=== PATIENT | female | born 1935 | race Caucasian/White ===

== ENCOUNTER 2016-09-24 13:26 | Inpatient (IN) | payer MEDICARE ==
--- NOTE | 2016-09-24 14:13 | ED ---
General Adult HPI - General Chief complaint: Chest Pain Stated complaint: R flank pain Time Seen by Provider: 09/24/16 13:27 Source: patient, EMS, RN notes reviewed, old records reviewed Mode of arrival: EMS Limitations: no limitations - History of Present Illness Initial comments: This is an 81-year-old female here with source of breath chest pain and cough. Patient does have medical history significant for COPD. On home O2. Patient denies any fevers. Complaining of anterior chest pain with right-sided flank pain. No nausea vomiting or diarrhea. Not worse with eating - Related Data Home Medications Medication Instructions Recorded Confirmed Aspirin EC [Ecotrin Low Dose] 81 mg PO DAILY 10/15/15 09/24/16 Atorvastatin [Lipitor] 10 mg PO HS 10/15/15 09/24/16 Fluticasone/Salmeterol [Advair 1 puff INHALATION RT-BID 10/15/15 09/24/16 500-50 Diskus] Letrozole [Femara] 2.5 mg PO DAILY 10/15/15 09/24/16 Levothyroxine Sodium [Levoxyl] 112 mcg PO DAILY 10/15/15 09/24/16 Meclizine HCl 25 mg PO DAILY PRN 10/15/15 09/24/16 Promethazine HCl/Codeine 5 ml PO DAILY PRN 10/15/15 09/24/16 [Prometh-Codein 6.25-10 mg/5 ml] hydrOXYzine HCL [Atarax] 10 mg PO BID 10/15/15 09/24/16 predniSONE 5 mg PO DAILY 10/15/15 09/24/16 Cholecalciferol [Vitamin D3] 2,000 unit PO DAILY 09/24/16 09/24/16 HYDROcodone/APAP 7.5-325MG [[place] 1 tab PO QID PRN 09/24/16 09/24/16 7.5-325] Ipratropium-Albuterol Nebulize 3 ml INHALATION RT-QID PRN 09/24/16 09/24/16 [Duoneb 0.5 mg-3 mg/3 ml Soln] Vitamin C/Biotin [Hair, Skin and 1 tab PO DAILY 09/24/16 09/24/16 Nails] Previous Rx's Medication Instructions Recorded Warfarin Sodium [Coumadin] 5 mg PO DAILY #1 tab 10/20/15 Allergies Allergy/AdvReac Type Severity Reaction Status Date / Time Sulfa (Sulfonamide Allergy Unknown Verified 09/24/16 13:34 Antibiotics) Review of Systems ROS Statement: Those systems with pertinent positive or pertinent negative responses have been documented in the HPI. ROS Other: All systems not noted in ROS Statement are negative. Past Medical History Past Medical History: Asthma, Cancer, COPD, Deep Vein Thrombosis (DVT), Hyperlipidemia, Osteoarthritis (OA), Pulmonary Embolus (PE), Thyroid Disorder Additional Past Medical History / Comment(s): 02 at 2L at night and prn during the day. BREAST CANCER, varicose veins, lymphedema (rt arm worse than left), "red blotches on skiin from blood thinners", hx radiation tx -thyroid, has had chemo and radiation doubel Mastectomy no B/P needle sticks on right History of Any Multi-Drug Resistant Organisms: None Reported Past Surgical History: Appendectomy, Back Surgery, Bladder Surgery, Breast Surgery, Hysterectomy, Joint Replacement, Tonsillectomy Additional Past Surgical History / Comment(s): GERDA CATARACTS. [place]IZ[place]NA FILTER. RIGHT KNEE REPLACEMENT. VEIN STRIPPING. PORT-O-CATH. mult surgeries on rt knee. arthroscopic rt knee, wedge resection rt lung, D&C, gerda mastectomy; benign lesions removed 10/13/15 [facility]; Past Anesthesia/Blood Transfusion Reactions: No Reported Reaction Additional Past Anesthesia/Blood Transfusion Reaction / Comment(s): PT ADOPTED, NO FAMILY HISTORY. Past Psychological History: Anxiety Smoking Status: Former smoker Past Alcohol Use History: None Reported Past Drug Use History: None Reported General Exam Limitations: no limitations General appearance: alert, in no apparent distress Head exam: Present: atraumatic, normocephalic, normal inspection Eye exam: Present: normal appearance, PERRL, EOMI. Absent: scleral icterus, conjunctival injection, periorbital swelling ENT exam: Present: normal exam, mucous membranes moist Neck exam: Present: normal inspection. Absent: tenderness, meningismus, lymphadenopathy Respiratory exam: Present: normal lung sounds bilaterally. Absent: respiratory distress, wheezes, rales, rhonchi, stridor Cardiovascular Exam: Present: regular rate, normal rhythm, normal heart sounds. Absent: systolic murmur, diastolic murmur, rubs, gallop, clicks GI/Abdominal exam: Present: soft, normal bowel sounds. Absent: distended, tenderness, guarding, rebound, rigid Extremities exam: Present: normal inspection, full ROM, normal capillary refill. Absent: tenderness, pedal edema, joint swelling, calf tenderness Back exam: Present: normal inspection Neurological exam: Present: alert, oriented X3, CN II-XII intact Psychiatric exam: Present: normal affect, normal mood Skin exam: Present: warm, dry, intact, normal color. Absent: rash Course Vital Signs 09/24/16 13:35 Temperature 97 F L Pulse Rate 74 Respiratory 16 Rate Blood Pressure 170/74 O2 Sat by Pulse 95 Oximetry - Reevaluation(s) Reevaluation #1: 09/24/16 15:24 Patient's pain appears to be improved Medical Decision Making - Medical Decision Making 81 venially ER for evaluation of chest pain and flank pain. Patient found to have pneumonia on x-ray, patient will be admitted for IV antibiotics and breathing treatments, moderate of cardiopulmonary status - Lab Data Result diagrams: 09/24/16 14:00 09/24/16 14:00 Lab Results 09/24/16 09/24/16 09/24/16 Range/Units 14:00 14:00 14:00 WBC 8.0 (3.8-10.6) k/uL RBC 4.88 (3.80-5.40) m/uL Hgb 14.8 (11.4-16.0) gm/dL Hct 47.7 H (34.0-46.0) % MCV 97.7 (80.0-100.0) fL MCH 30.3 (25.0-35.0) pg MCHC 31.0 (31.0-37.0) g/dL RDW 15.0 (11.5-15.5) % Plt Count 235 (150-450) k/uL Neutrophils % 71 % Lymphocytes % 17 % Monocytes % 6 % Eosinophils % 3 % Basophils % 1 % Neutrophils # 5.7 (1.3-7.7) k/uL Lymphocytes # 1.4 (1.0-4.8) k/uL Monocytes # 0.5 (0-1.0) k/uL Eosinophils # 0.3 (0-0.7) k/uL Basophils # 0.1 (0-0.2) k/uL PT (9.0-12.0) sec INR (<1.1) APTT (22.0-30.0) sec Sodium 142 (137-145) mmol/L Potassium 5.4 H (3.5-5.1) mmol/L Chloride 103 (98-107) mmol/L Carbon Dioxide 26 (22-30) mmol/L Anion Gap 13 mmol/L BUN 21 H (7-17) mg/dL Creatinine 0.79 (0.52-1.04) mg/dL Est GFR (MDRD) Af Amer >60 (>60 ml/min/1.73 sqM) Est GFR (MDRD) Non-Af >60 (>60 ml/min/1.73 sqM) Glucose 107 H (74-99) mg/dL Calcium 9.9 (8.4-10.2) mg/dL Phosphorus 3.9 (2.5-4.5) mg/dL Magnesium 2.0 (1.6-2.3) mg/dL Total Bilirubin 1.0 (0.2-1.3) mg/dL AST 95 H (14-36) U/L ALT 85 H (9-52) U/L Alkaline Phosphatase 107 (38-126) U/L Total Creatine Kinase 38 (30-135) U/L CK-MB (CK-2) 0.7 (0.0-2.4) ng/mL CK-MB (CK-2) Rel Index 1.8 Troponin I <0.012 (0.000-0.034) ng/mL Total Protein 7.3 (6.3-8.2) g/dL Albumin 4.3 (3.5-5.0) g/dL 09/24/16 Range/Units 14:00 WBC (3.8-10.6) k/uL RBC (3.80-5.40) m/uL Hgb (11.4-16.0) gm/dL Hct (34.0-46.0) % MCV (80.0-100.0) fL MCH (25.0-35.0) pg MCHC (31.0-37.0) g/dL RDW (11.5-15.5) % Plt Count (150-450) k/uL Neutrophils % % Lymphocytes % % Monocytes % % Eosinophils % % Basophils % % Neutrophils # (1.3-7.7) k/uL Lymphocytes # (1.0-4.8) k/uL Monocytes # (0-1.0) k/uL Eosinophils # (0-0.7) k/uL Basophils # (0-0.2) k/uL PT 29.9 H (9.0-12.0) sec INR 3.1 (<1.1) APTT 29.1 (22.0-30.0) sec Sodium (137-145) mmol/L Potassium (3.5-5.1) mmol/L Chloride (98-107) mmol/L Carbon Dioxide (22-30) mmol/L Anion Gap mmol/L BUN (7-17) mg/dL Creatinine (0.52-1.04) mg/dL Est GFR (MDRD) Af Amer (>60 ml/min/1.73 sqM) Est GFR (MDRD) Non-Af (>60 ml/min/1.73 sqM) Glucose (74-99) mg/dL Calcium (8.4-10.2) mg/dL Phosphorus (2.5-4.5) mg/dL Magnesium (1.6-2.3) mg/dL Total Bilirubin (0.2-1.3) mg/dL AST (14-36) U/L ALT (9-52) U/L Alkaline Phosphatase (38-126) U/L Total Creatine Kinase (30-135) U/L CK-MB (CK-2) (0.0-2.4) ng/mL CK-MB (CK-2) Rel Index Troponin I (0.000-0.034) ng/mL Total Protein (6.3-8.2) g/dL Albumin (3.5-5.0) g/dL - Radiology Data Radiology results: report reviewed (Ultrasound gallbladder negative, x-ray chest positive for pneumonia), image reviewed Disposition Clinical Impression: Breast cancer, Pneumonia Disposition: ADMITTED IP TO THIS HOSP Condition: Fair Referrals: Shabbir Goss MD [Primary Care Provider] - 1-2 days
--- NOTE | 2016-09-24 14:27 | XR ---
EXAMINATION TYPE: XR chest 2V DATE OF EXAM: 09/24/2016 2:19 PM COMPARISON: 10/15/2015 INDICATION: Weakness TECHNIQUE: Frontal and lateral views of the chest are obtained. FINDINGS: The heart size is normal. Heart is shifted towards the right. Some tracheal deviation towards the ri ght is evident. The pulmonary vasculature is normal. Mild right lower lobe infiltrate may be present.. IMPRESSION: 1. Suggestion of mild right lower lobe infiltrate.
[2016-09-24 14:33] LABS: Basophils # (A) 0.1 k/uL (0-0.2); Basophils % (A) 1 %; CH 30.9; CHCM 31.8; Eosinophils # (A) 0.3 k/uL (0-0.7); Eosinophils % (A) 3 %; HCT 47.7 % (34.0-46.0); HDW 2.44; HGB 14.8 gm/dL (11.4-16.0); Luc # (Auto) 0.14; Luc % (Auto) 2; Lymphocytes # (A) 1.4 k/uL (1.0-4.8); Lymphocytes % (A) 17 %; MCH 30.3 pg (25.0-35.0); MCV 97.7 fL (80.0-100.0); Mean Platelet Volume 7.9; Monocytes # (A) 0.5 k/uL (0-1.0); Monocytes % (A) 6 %; Neutrophils # (A) 5.7 k/uL (1.3-7.7); Neutrophils % (A) 71 %; RBC 4.88 m/uL (3.80-5.40); WBC (Perox) 8.13
[2016-09-24 14:48] LABS: Anion Gap 13 mmol/L; Calcium 9.9 mg/dL (8.4-10.2); Carbon Dioxide 26 mmol/L (22-30); Chloride 103 mmol/L (98-107); Glucose 107 mg/dL (74-99); Non-African American GFR(MDRD) >60 (>60 ml/min/1.73 sqM); Sodium 142 mmol/L (137-145)
[2016-09-24 14:53] LABS: Creatine Kinase 38 U/L (30-135)
[2016-09-24 14:58] LABS: Potassium 5.4 mmol/L (3.5-5.1); Total Protein 7.3 g/dL (6.3-8.2)
[2016-09-24 14:59] LABS: AST 95 U/L (14-36); Alkaline Phosphatase 107 U/L (38-126); Blood Urea Nitrogen 21 mg/dL (7-17); Phosphorous 3.9 mg/dL (2.5-4.5)
[2016-09-24 15:00] LABS: ALT 85 U/L (9-52)
[2016-09-24 15:04] LABS: Creatine Kinase MB 0.7 ng/mL (0.0-2.4); Troponin I <0.012 ng/mL (0.000-0.034)
--- NOTE | 2016-09-24 15:04 | US ---
EXAMINATION TYPE: US gallbladder DATE OF EXAM: 09/24/2016 2:45 PM COMPARISON: CT chest 04 June 2016 CLINICAL HISTORY: Pain. RUQ pain, nausea EXAM MEASUREMENTS: Liver Length: 20.4 cm Gallbladder Wall: 0.3 cm CBD: 0.6 cm Right Kidney: 10.4 x 4.0 x 4.3 cm Pancreas: not well visualized Liver: riddled with small lesions throughout both lobes Gallbladder: No stones seen Evidence for sonographic Dawn's sign: No CBD: wnl Right Kidney: No hydronephrosis or masses seen, thinned cortex Technologist impression patient did not tolerate well any pressure from the probe anywhere on the abdomen. IMPRESSION: Metastatic disease to the liver. Some limitations to the exam.
[2016-09-24 15:06] LABS: INR 3.1 (<1.1); Partial Thromboplastin Time 29.1 sec (22.0-30.0); Prothrombin Time 29.9 sec (9.0-12.0)
[2016-09-24] MEDS ORDERED: LEVOFLOXACIN 750MG-D5W PMX 750 MG in DEXTROSE/WATER 1 150ML.BAG IVPB STA (15:22)
[2016-09-24] MEDS ORDERED: PNEUMONIA PROTOCOL UTILIZED 1 EACH MISC PO PRN (15:22)
[2016-09-24] MEDS ORDERED: PIPERACILLIN-TAZOBACTAM 3.375 GM in DEXTROSE/WATER 1 50ML.BAG IVPB STA (15:22)
[2016-09-24 15:41] LABS: Appearance,Urine Clear (Clear); Bilirubin,Urine Negative (Negative); Glucose,Urine (UA) Negative (Negative); Ketones,Urine Trace (Negative); Leukocyte Esterase,Urine Trace (Negative); Nitrite,Urine Negative (Negative); Particle Count 4216; Protein,Urine Trace (Negative); RBC,Urine 1 /hpf (0-5); Specific Gravity,Urine 1.018 (1.001-1.035); Squamous Epithelial Cell,Urine 2 /hpf (0-4); UA Billing (MACRO vs. MICRO) MICRO; Urobilinogen,Urine <2.0 mg/dL (<2.0); WBC,Urine 3 /hpf (0-5)
[2016-09-24] MEDS: SODIUM CHLORIDE 0.9% 1,000 ML IV SCH (15:41)
[2016-09-24] MEDS: IPRATROPIUM-ALBUTEROL 3 ML NEB INHALATION SCH ×2 (16:14→19:21)
[2016-09-24] MEDS ORDERED: hydrALAZINE HCL 20 MG/ML 1 ML VIAL IVP PRN (16:31)
[2016-09-24] MEDS ORDERED: hydrALAZINE HCL 20 MG/ML 1 ML VIAL IVP STA (16:36)
[2016-09-24] MEDS ORDERED: IPRATROPIUM-ALBUTEROL 3 ML NEB INHALATION PRN (21:15)
[2016-09-24] MEDS ORDERED: LETROZOLE 2.5 MG TAB PO SCH (21:15)
[2016-09-24] MEDS: MORPHINE SULFATE 2 MG/ML SYRINGE IVP PRN (21:24)
[2016-09-24] MEDS: PIPERACILLIN-TAZOBACTAM 3.375 GM in DEXTROSE/WATER 1 50ML.BAG IVPB SCH (22:54)
[2016-09-25] MEDS: MORPHINE SULFATE 2 MG/ML SYRINGE IVP PRN ×4 (03:42→20:58)
[2016-09-25] MEDS: SODIUM CHLORIDE 0.9% 1,000 ML IV SCH ×3 (06:21→20:09)
[2016-09-25] MEDS: LEVOTHYROXINE 112 MCG TAB PO SCH (06:21)
[2016-09-25] MEDS: PIPERACILLIN-TAZOBACTAM 3.375 GM in DEXTROSE/WATER 1 50ML.BAG IVPB SCH ×3 (08:24→23:16)
--- NOTE | 2016-09-25 08:30 | XR ---
EXAMINATION TYPE: XR chest 2V DATE OF EXAM: 09/25/2016 7:32 AM HISTORY: Difficulty breathing. REFERENCE: Previous study dated 09/24/2016. FINDINGS: There is asymmetry of the thorax with the right hemithorax being smaller than the left. The heart is mildly enlarged. There are senescent changes throughout the lungs. There is silhouetting of the right heart border. IMPRESSION: 1. CARDIOMEGALY. 2. PROBABLE RIGHT MIDDLE LOBE PNEUMONIA.
[2016-09-25] MEDS ORDERED: ENOXAPARIN 40 MG/0.4 ML SYRINGE SQ SCH (09:00)
[2016-09-25] MEDS: IPRATROPIUM-ALBUTEROL 3 ML NEB INHALATION SCH ×4 (10:54→20:15)
[2016-09-25] MEDS ORDERED: MECLIZINE 25 MG TAB PO PRN (12:04)
[2016-09-25] MEDS ORDERED: RX INFO: IV CONTRAST WAS GIVEN 1 EACH MISC MISCELLANE PRN (12:07)
--- NOTE | 2016-09-25 12:14 | P.HPIM ---
History of Present Illness 81-year-old female presented to the emergency room with complaints of cough and shortness of breath. Patient states she's having pressure chest pain history of pulmonary embolism. Patient also has history of bilateral mastectomy from breast cancer. Patient's had a right lung with wedge resection area patient has history of DVT has a [place] filter. Patient's on home O2 2 L secondary to COPD Review of Systems Constitutional: Reports fatigue, Reports weakness Cardiovascular: Reports chest pain Respiratory: Reports cough, Reports dyspnea Past Medical History Past Medical History: Asthma, Cancer, COPD, Deep Vein Thrombosis (DVT), Hyperlipidemia, Osteoarthritis (OA), Pulmonary Embolus (PE), Thyroid Disorder Additional Past Medical History / Comment(s): 02 at 2L at night and prn during the day. BREAST CANCER, varicose veins, lymphedema (rt arm worse than left), "red blotches on skiin from blood thinners", hx radiation tx -thyroid, has had chemo and radiation doubel Mastectomy no B/P needle sticks on right History of Any Multi-Drug Resistant Organisms: None Reported Past Surgical History: Appendectomy, Back Surgery, Bladder Surgery, Breast Surgery, Hysterectomy, Joint Replacement, Tonsillectomy Additional Past Surgical History / Comment(s): GERDA CATARACTS. RIZ[place]NA FILTER. RIGHT KNEE REPLACEMENT. VEIN STRIPPING. PORT-O-CATH. mult surgeries on rt knee. arthroscopic rt knee, wedge resection rt lung, D&C, gerda mastectomy; benign lesions removed 10/13/15 [facility]; Past Anesthesia/Blood Transfusion Reactions: No Reported Reaction Additional Past Anesthesia/Blood Transfusion Reaction / Comment(s): PT ADOPTED, NO FAMILY HISTORY. Past Psychological History: Anxiety Smoking Status: Former smoker Past Alcohol Use History: None Reported Past Drug Use History: None Reported Medications and Allergies Home Medications Medication Instructions Recorded Confirmed Type Aspirin EC [Ecotrin Low Dose] 81 mg PO DAILY 10/15/15 09/24/16 History Atorvastatin [Lipitor] 10 mg PO HS 10/15/15 09/24/16 History Fluticasone/Salmeterol [Advair 1 puff INHALATION RT-BID 10/15/15 09/24/16 History 500-50 Diskus] Letrozole [Femara] 2.5 mg PO DAILY 10/15/15 09/24/16 History Levothyroxine Sodium [Levoxyl] 112 mcg PO DAILY 10/15/15 09/24/16 History Meclizine HCl 25 mg PO DAILY PRN 10/15/15 09/24/16 History Promethazine HCl/Codeine 5 ml PO DAILY PRN 10/15/15 09/24/16 History [Prometh-Codein 6.25-10 mg/5 ml] hydrOXYzine HCL [Atarax] 10 mg PO BID 10/15/15 09/24/16 History predniSONE 5 mg PO DAILY 10/15/15 09/24/16 History Acetaminophen/Diphenhydramine 2 each PO 09/24/16 History [Tylenol PM Extra Strength] Cholecalciferol [Vitamin D3] 2,000 unit PO DAILY 09/24/16 09/24/16 History HYDROcodone/APAP 7.5-325MG [[place] 1 tab PO QID PRN 09/24/16 09/24/16 History 7.5-325] Ipratropium-Albuterol Nebulize 3 ml INHALATION RT-QID PRN 09/24/16 09/24/16 History [Duoneb 0.5 mg-3 mg/3 ml Soln] Vitamin C/Biotin [Hair, Skin and 1 tab PO DAILY 09/24/16 09/24/16 History Nails] Allergies Allergy/AdvReac Type Severity Reaction Status Date / Time Sulfa (Sulfonamide Allergy Unknown Verified 09/24/16 13:34 Antibiotics) Physical Exam Vitals: Vital Signs Temp Pulse Pulse Resp BP BP Pulse Ox 09/25/16 11:10 72 09/25/16 10:57 71 91 L 09/25/16 07:00 97.6 F 74 20 150/76 94 L 09/24/16 23:00 97.7 F 79 21 147/67 90 L 09/24/16 19:40 84 09/24/16 19:21 82 09/24/16 18:19 85 19 09/24/16 18:08 96.5 F L 85 19 116/59 93 L 09/24/16 16:49 97.3 F L 72 18 156/72 96 09/24/16 16:24 84 09/24/16 16:16 82 99 09/24/16 15:45 97.5 F L 79 18 155/73 95 Intake and Output 09/24/16 09/25/16 09/25/16 22:59 06:59 14:59 Other: Voiding Method Bedside Commode Bedpan # Voids 2 1 - Constitutional General appearance: mild distress, obese - EENT Eyes: PERRLA Ears: bilateral: normal - Neck Neck: normal ROM - Respiratory Respiratory: bilateral: diminished - Gastrointestinal General gastrointestinal: soft - Integumentary Integumentary: normal - Neurologic Neurologic: CNII-XII intact - Musculoskeletal Musculoskeletal: generalized weakness - Psychiatric Psychiatric: A&O x's 3, appropriate affect, intact judgment & insight Results CBC & Chem 7: 09/24/16 14:00 09/24/16 14:00 Chest x-ray: report reviewed US - abdomen: report reviewed Thrombosis Risk Factor Assmnt - Choose All That Apply Each Factor Represents 1 point: Obesity (BMI >25) Each Risk Factor Represents 3 Points: Age 75 years or older, History of DVT/PE Thrombosis Risk Factor Assessment Total Risk Factor Score: 7 Thrombosis Risk Factor Assessment Level: High Risk Assessment and Plan Plan: Assessment History of breast cancer with bilateral mastectomy Pneumonia Asthma/COPD on home O2 of 2 L History of pulmonary embolism History of DVT has [place] filter Hyperlipidemia Hypothyroidism Osteoarthritis Plan Consultation with Dr. Wayne Consultation with oncology for possible liver metastases
--- NOTE | 2016-09-25 13:30 | CT ---
EXAMINATION TYPE: CT chest angio for PE DATE OF EXAM: 09/25/2016 1:12 PM COMPARISON: CT chest June 04, 2016 HISTORY: chest pain. History of breast cancer and pulmonary embolism. CT DLP: 377.4 mGycm. Automated Exposure Control for Dose Reduction was Utilized. CONTRAST: CTA scan of the thorax is performed with IV Contrast, patient injected with 69 mL of Omnipaque 350, p ulmonary embolism protocol. MIP Images are created on CT scanner and reviewed. FINDINGS: LUNGS: There is redemonstration of fairly moderate emphysematous change most pronounced in the upper lungs. There is persistent left apical scarring with 7 mm nodular scar on axial image 24 redemonstrat ed. Postsurgical change right upper lung medially relating to prior wedge resection redemonstrated. A dditional focal thickening along the peripheral right midlung with associated calcification near axia l image 54 is unchanged and could reflect product of prior surgery. Right-sided volume loss is noted. Scattered areas of scarring are present bilaterally, right greater than left. No new suspicious grou ndglass opacity or consolidation is seen. No pleural effusion or pneumothorax is noted bilaterally. MEDIASTINUM: There is satisfactory enhancement of the pulmonary artery and its branches, there is no CT evidence for pulmonary embolism. There are persistent prominent and slightly enlarged right hilar lymph nodes felt stable. Pericarinal lymph nodes are less well seen felt diminished in size versus pr ior. No cardiomegaly or pericardial effusion is seen. Coronary artery calcification is redemonstrated . There is moderate to severe calcified aftereffect change of aorta and branch vessels OTHER: Corresponding to ultrasound from one day earlier there are innumerable heterogeneous hypodense lesions scattered throughout the liver felt to reflect diffuse metastatic disease. Findings are new from prior CT. Some generalized fat replaced atrophy pancreas is redemonstrated. Cortical thinning in both kidneys w ith scattered nonobstructing renal and vascular calcifications are redemonstrated. 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 Surgical changes from bilateral mastectomies redemonstrated. There is stable thin-walled fluid collec tion in the superior lateral right chest wall measuring 5.9 cm on long axis on axial image 43. Probab le seroma or chronic hematoma. Osseous structures are demineralized. Multilevel spurring throughout visualized spine is seen. IMPRESSION: 1. No CT evidence for pulmonary embolism. 2. Moderate emphysematous change with scattered fibrosis and surgical changes or volume loss right mateo ng all redemonstrated. No new acute pulmonary process is noted. 3. New diffuse hepatic metastatic is confirmed. Imaging guided random biopsy for tissue analysis can be performed if desired.
[2016-09-25] MEDS ORDERED: LEVOFLOXACIN 750MG-D5W PMX 750 MG in DEXTROSE/WATER 1 150ML.BAG IVPB SCH (16:00)
--- NOTE | 2016-09-25 17:45 | P.CNPUL ---
History of Present Illness Consult date: 09/25/16 Reason for consult: COPD History of present illness: 81-year-old female patient who came into the hospital because of some discomfort in the right upper quadrant area, right lower chest and some radiation to the back involving the flank. She is known to have chronic COPD and she's been oxygen dependent for many years. She also has history of breast cancer involving the right breast and the patient underwent bilateral mastectomy followed by chemotherapy and radiation therapy and she has been maintained on Femara and she has been followed up by Dr. magnolia capellan and based on her latest evaluation 2015 she was told to be and disease remission. She also has a chronic left upper lobe scar, subcentimeter nodule, that has been monitored by serial CAT scans and I noted the last CAT scan was done on this patient from May 2016. This patient also reports a previous wedge resection of a lung lesion that was done many years back and this turned out to be benign and there was no evidence of any malignancy. She is on left lung and to coagulation with warfarin regarding massive DVT and pulmonary embolism and the patient also has an IVC filter in place During this current admission, the patient was seen in the emergency department a CAT scan of the chest was done. There was no other degree of emphysema as expected. The left upper lobe pulmonary nodule has remained unchanged and it is subcentimeter in size. However, one concerning finding was multiple liver lesions that were noted and was suggestive of metastatic disease. I noted that the patient's liver function tests including the AST and LAT are elevated. Alkaline phosphatase is not elevated and the patient does not have any bilirubin elevation. The patient had a ultrasound of the abdomen which again raises the suspicion for metastatic liver disease based on the fact that multiple lesions in the liver was identified. No major respiratory distress for now. No cough or sputum production. No hemoptysis. She has diminished appetite. There is no significant weight loss. A consultation was placed for oncology in regards to this findings. Review of Systems Further review of system was done and the positive findings are almost above in history of present illness Past Medical History Past Medical History: Asthma, Cancer, COPD, Deep Vein Thrombosis (DVT), Hyperlipidemia, Osteoarthritis (OA), Pulmonary Embolus (PE), Thyroid Disorder Additional Past Medical History / Comment(s): Massive PE and bilateral DVT (2000 ), post IVC filter and the patient is on long terms anticoagulation, COPD hypothyroidism, hyperlipidemia, breast cancer right-sided, status post bilateral mastectomy followed by chemoradiation therapy , lymphedema involving the UE (right morte than left) and the patient has been and disease remission according to the third also was latest office evaluation , benign lung lesion on the right, varicose veins, History of Any Multi-Drug Resistant Organisms: None Reported Past Surgical History: Appendectomy, Back Surgery, Bladder Surgery, Breast Surgery, Hysterectomy, Joint Replacement, Tonsillectomy Additional Past Surgical History / Comment(s): GERDA CATARACTS. RIZWANA FILTER. RIGHT KNEE REPLACEMENT. VEIN STRIPPING. PORT-O-CATH. mult surgeries on rt knee. arthroscopic rt knee, wedge resection rt lung, D&C, gerda mastectomy; benign lesions removed 10/13/15 [facility]; Past Anesthesia/Blood Transfusion Reactions: No Reported Reaction Additional Past Anesthesia/Blood Transfusion Reaction / Comment(s): PT ADOPTED, NO FAMILY HISTORY. Past Psychological History: Anxiety Smoking Status: Former smoker Past Alcohol Use History: None Reported Past Drug Use History: None Reported Medications and Allergies Home Medications Medication Instructions Recorded Confirmed Type Aspirin EC [Ecotrin Low Dose] 81 mg PO DAILY 10/15/15 09/24/16 History Atorvastatin [Lipitor] 10 mg PO HS 10/15/15 09/24/16 History Fluticasone/Salmeterol [Advair 1 puff INHALATION RT-BID 10/15/15 09/24/16 History 500-50 Diskus] Letrozole [Femara] 2.5 mg PO DAILY 10/15/15 09/24/16 History Levothyroxine Sodium [Levoxyl] 112 mcg PO DAILY 10/15/15 09/24/16 History Meclizine HCl 25 mg PO DAILY PRN 10/15/15 09/24/16 History Promethazine HCl/Codeine 5 ml PO DAILY PRN 10/15/15 09/24/16 History [Prometh-Codein 6.25-10 mg/5 ml] hydrOXYzine HCL [Atarax] 10 mg PO BID 10/15/15 09/24/16 History predniSONE 5 mg PO DAILY 10/15/15 09/24/16 History Acetaminophen/Diphenhydramine 2 each PO 09/24/16 History [Tylenol PM Extra Strength] Cholecalciferol [Vitamin D3] 2,000 unit PO DAILY 09/24/16 09/24/16 History HYDROcodone/APAP 7.5-325MG [[place] 1 tab PO QID PRN 09/24/16 09/24/16 History 7.5-325] Ipratropium-Albuterol Nebulize 3 ml INHALATION RT-QID PRN 09/24/16 09/24/16 History [Duoneb 0.5 mg-3 mg/3 ml Soln] Vitamin C/Biotin [Hair, Skin and 1 tab PO DAILY 09/24/16 09/24/16 History Nails] Allergies Allergy/AdvReac Type Severity Reaction Status Date / Time Sulfa (Sulfonamide Allergy Unknown Verified 09/24/16 13:34 Antibiotics) Physical Exam Vitals: Vital Signs Temp Pulse Pulse Resp BP BP Pulse Ox 09/25/16 16:06 74 09/25/16 14:41 99.1 F 77 18 123/58 90 L 09/25/16 11:10 72 09/25/16 10:57 71 91 L 09/25/16 07:00 97.6 F 74 20 150/76 94 L 09/24/16 23:00 97.7 F 79 21 147/67 90 L 09/24/16 19:40 84 09/24/16 19:21 82 09/24/16 18:19 85 19 09/24/16 18:08 96.5 F L 85 19 116/59 93 L 09/24/16 16:49 97.3 F L 72 18 156/72 96 Intake and Output 09/25/16 09/25/16 09/25/16 06:59 14:59 22:59 Other: # Voids 1 1 Head exam was generally normal. There was no scleral icterus or corneal arcus. Mucous membranes were moist.Neck was supple and without jugular venous distension, thyromegaly, or carotid bruits. Carotids were easily palpable bilaterally. There was no adenopathy. Lung sounds are diminished bilaterally along with that there is some few scattered expiratory wheezes.Cardiac exam revealed the PMI to be normally situated and sized. The rhythm was regular and no extrasystoles were noted during several minutes of auscultation. The first and second heart sounds were normal and physiologic splitting of the second heart sound was noted. There were no murmurs, rubs, clicks, or gallops.Abdominal exam revealed normal bowel sounds. The abdomen was soft, non- tender, and without masses, organomegaly, or appreciable enlargement of the abdominal aorta. There is some mild right upper quadrant tenderness. No rebound tenderness or guarding.Examination of the extremities revealed easily palpable radial, femoral and pedal pulses. There was no cyanosis, clubbing or edema. Results - Laboratory Findings CBC and BMP: 09/24/16 14:00 09/24/16 14:00 PT/INR, D-dimer PT 29.9 sec (9.0-12.0) H 09/24/16 14:00 INR 3.1 (<1.1) 09/24/16 14:00 - Diagnostic Findings CT scan - chest: image reviewed Assessment and Plan Plan: Assessment 1 advanced oxygen-dependent COPD with no evidence of any COPD exacerbation of this point in time. To My judgment, the patient's COPD is currently inactive in stable 2 liver metastatic lesions. This was an incidental finding as the patient presented with right upper quadrant/flank pain and showed an abnormal LFTs and ultrasound of the liver and following that the CAT scan of the chest that was done in a CT angios protocol showed multiple innumerable liver lesions suggestive of metastatic disease. At this point in time there may be some concern for metastatic breast cancer based on her history although other alternative primaries cannot be completely excluded 3 left upper lobe subcentimeter pulmonary nodules that has remained stable 4 history of benign lung lesion status post wedge resection from the right lung 5 right breast cancer status post bilateral mastectomy followed by chemoradiation therapy 2013 currently on from Femera 6 chronic lymphedema of the upper extremities right more than left 7 massive DVT and pulmonary embolism in 2000 status post IVC filter placement and the patient is on lifelong articulation with warfarin and the PT/INR was therapeutic at this point 8 hypothyroidism 9 hyperlipidemia 10 varicose veins involving lower extremities bilaterally Plan The patient will need an oncology consultation. We'll discussed the findings with interventional radiology and see of these liver lesions are accessible for fine-needle aspirate and biopsy to establish tissue diagnosis. Tumor markers per oncology. We'll continue to follow. Findings were explained. Coumadin will be continued to maintain an INR between 2 and 3 unless a fine-needle aspirate is planned and at that point the warfarin effects will be reversed. Pulmonary status is stable for now.
[2016-09-25] MEDS: hydrOXYzine HCL 10 MG TAB PO SCH (20:08)
[2016-09-25] MEDS: LETROZOLE 2.5 MG TAB PO SCH (20:08)
[2016-09-25] MEDS: ATORVASTATIN 10 MG TAB PO SCH (20:09)
[2016-09-25] MEDS: SYMBICORT 160-4.5 MCG INHALER INHALATION SCH (20:15)
[2016-09-26] MEDS: MORPHINE SULFATE 2 MG/ML SYRINGE IVP PRN ×3 (05:51→15:15)
[2016-09-26] MEDS: LEVOTHYROXINE 112 MCG TAB PO SCH (05:51)
[2016-09-26] MEDS: SODIUM CHLORIDE 0.9% 1,000 ML IV SCH ×2 (08:42→16:22)
[2016-09-26] MEDS: PIPERACILLIN-TAZOBACTAM 3.375 GM in DEXTROSE/WATER 1 50ML.BAG IVPB SCH ×3 (08:42→23:20)
[2016-09-26] MEDS: predniSONE 5 MG TAB PO SCH (08:43)
[2016-09-26] MEDS: hydrOXYzine HCL 10 MG TAB PO SCH ×2 (08:43→22:40)
[2016-09-26] MEDS ORDERED: ASPIRIN 81 MG CHEW PO SCH (09:00)
[2016-09-26] MEDS: IPRATROPIUM-ALBUTEROL 3 ML NEB INHALATION SCH ×4 (09:59→19:16)
[2016-09-26] MEDS: SYMBICORT 160-4.5 MCG INHALER INHALATION SCH ×2 (09:59→19:14)
--- NOTE | 2016-09-26 10:50 | P.PN ---
Subjective Patient sitting up in bed able to retain breakfast. Noted liver metastasis on abdominal ultrasound and CT. Consultation requested for oncology and Dr. Tamez. Continue consultation with Dr. Wayne regarding pneumonia. CT of the chest negative for PE has history of the same Objective - Vital Signs Vital signs: Vital Signs Temp 97.1 F L 09/26/16 07:00 Pulse 83 09/26/16 10:11 Resp 16 09/26/16 07:00 BP 134/72 09/26/16 07:00 Pulse Ox 93 L 09/26/16 10:00 Intake & Output 09/25/16 09/26/16 09/26/16 18:59 06:59 18:59 Intake Total 480 Balance 480 Intake: Oral 480 Other: Voiding Method Bedside Commode Bedside Commode Bedside Commode # Voids 2 4 - Constitutional General appearance: Present: obese - EENT Eyes: Present: PERRLA Ears: bilateral: normal - Neck Neck: Present: normal ROM - Respiratory Respiratory: bilateral: diminished - Cardiovascular Rhythm: regular - Gastrointestinal General gastrointestinal: Present: distended - Integumentary Integumentary: Present: normal - Neurologic Neurologic: Present: CNII-XII intact - Musculoskeletal Musculoskeletal: Present: generalized weakness - Psychiatric Psychiatric: Present: A&O x's 3, appropriate affect, intact judgment & insight - Labs CBC & Chem 7: 09/24/16 14:00 09/24/16 14:00 - Imaging and Cardiology CT scan - chest: report reviewed Assessment and Plan Plan: Assessment Pneumonia History of asthma/COPD advance O2 dependent History of breast cancer with bilateral mastectomy History of DVT and pulmonary embolus patient has been felt older Hyperlipidemia Thyroidism Osteoarthritis history of right lung wedge resection Liver metastasis Plan Continue consultation with Dr. Wayne Continue consultation with Dr. Tamez May possibly need to hold anticoagulation for possible liver biopsy
--- NOTE | 2016-09-26 11:57 | CDI ---
In responding to this query, please exercise your independent professional judgment. The [employer] [employer] Coding Staff and Clinical Documentation Specialists appreciate your assistance in clarifying documentation, maintaining compliance with coding guidelines, accurately documenting patients condition and capturing severity of illness. The fact that a question is asked does not imply that any particular answer is desired or expected. Communication forms are a method of clarifying documentation and are not made part of the Legal Health Record. Thank you in advance for your clarification. Last Revision, October 2015 Petra Harrison [address] [place] [address] Documentation Clarification Form Date: 09/26/2016 11:40:00 AM From: Kel Maier, RN, BSN, CDI Admit Date: 09/24/2016 3:24:00 PM Patient Name: Randall Spencer Visit Number: [id number] Dr. Shabbir Goss: "COPD with home oxygen dependence" is documented in the H&P and pulmonary consult. History/Risk Factors: 81 yo female with a history of COPD, asthma, breast CA and massive PE Tobacco use: "former smoker" Home oxygen: 2-2.5L ATC Clinical Indicators: Pulse oximetry: Spo2 90-95% 2-4L Lung/Breathing assessment: "diminished", RR: 16-20 Treatment: duonebs, oxygen @2-4L since admit In your professional opinion, can you please clarify if these findings signify one of the following conditions? Acuity: o Acute o Chronic o Acute on Chronic Respiratory Status: o Respiratory failure o Respiratory failure with hypercapnia o Respiratory failure with hypoxia o Acute Respiratory Distress o Other Diagnosis, please specify o Unable to determine Please document in your progress notes and discharge summary in order to capture severity of illness and risk of mortality. Include clinical findings that support your diagnosis. FYI: Press F11 to launch patient chart. Place X here if this finding has no clinical significance, is not applicable or if you are not able to provide any additional documentation. MTDD
[2016-09-26] MEDS: CHOLECALCIFEROL 1,000 UNIT TAB PO SCH (12:16)
[2016-09-26] MEDS: ASCORBIC ACID 500 MG TAB PO SCH (12:16)
[2016-09-26] MEDS: HYDROcodone/APAP 7.5-325MG 1 EACH TAB PO PRN (12:16)
[2016-09-26 12:42] LABS: CH 30.4; CHCM 31.1; HCT 43.2 % (34.0-46.0); HDW 2.37; HGB 13.4 gm/dL (11.4-16.0); Hypochromasia Slight; MCH 30.5 pg (25.0-35.0); MCHC 31.1 g/dL (31.0-37.0); MCV 98.1 fL (80.0-100.0); Mean Platelet Volume 7.1; RBC 4.41 m/uL (3.80-5.40); RDW 14.8 % (11.5-15.5); WBC 8.6 k/uL (3.8-10.6)
[2016-09-26 13:08] LABS: Anion Gap 13 mmol/L; Blood Urea Nitrogen 20 mg/dL (7-17); Calcium 9.6 mg/dL (8.4-10.2); Carbon Dioxide 21 mmol/L (22-30); Chloride 106 mmol/L (98-107); Glucose 100 mg/dL (74-99); Non-African American GFR(MDRD) 53 (>60 ml/min/1.73 sqM); Potassium 4.5 mmol/L (3.5-5.1); Sodium 140 mmol/L (137-145)
--- NOTE | 2016-09-26 15:17 | P.PN ---
Subjective This is a very pleasant 81-year-old female patient who came into the hospital because of some discomfort in the right upper quadrant area, right lower chest and some radiation to the back involving the flank. She is known to have chronic COPD and she's been oxygen dependent for many years. She also has history of breast cancer involving the right breast and the patient underwent bilateral mastectomy followed by chemotherapy and radiation therapy and she has been maintained on Femara and she has been followed up by Dr. magnolia capellan and based on her latest evaluation 2015 she was told to be and disease remission. She also has a chronic left upper lobe scar, subcentimeter nodule, that has been monitored by serial CAT scans and I noted the last CAT scan was done on this patient from May 2016. This patient also reports a previous wedge resection of a lung lesion that was done many years back and this turned out to be benign and there was no evidence of any malignancy. She is on left lung and to coagulation with warfarin regarding massive DVT and pulmonary embolism and the patient also has an IVC filter in place During this current admission, the patient was seen in the emergency department a CAT scan of the chest was done. There was no other degree of emphysema as expected. The left upper lobe pulmonary nodule has remained unchanged and it is subcentimeter in size. However, one concerning finding was multiple liver lesions that were noted and was suggestive of metastatic disease. The patient's liver function tests including the AST and LAT are elevated. Alkaline phosphatase is not elevated and the patient does not have any bilirubin elevation. The patient had a ultrasound of the abdomen which again raises the suspicion for metastatic liver disease based on the fact that multiple lesions in the liver was identified. She is seen again today to 2016 in follow-up. She is awake and alert in no acute distress. She is stable from the pulmonary standpoint. She denies any worsening shortness of breath, cough or congestion. No fever, no chills. She is maintaining good O2 saturations in the mid 90s on 3 L/m per nasal cannula. Her right upper quadrant pain has subsided somewhat. Seen and evaluated by oncology who may plan for either inpatient or outpatient biopsy of the liver. In the interim, we'll continue with her current medications including bronchodilators, Symbicort and in antibiotics in the form of Levaquin and Zosyn. Objective - Vital Signs Vital signs: Vital Signs Temp 97.1 F L 09/26/16 07:00 Pulse 83 09/26/16 10:11 Resp 16 09/26/16 07:00 BP 134/72 09/26/16 07:00 Pulse Ox 93 L 09/26/16 10:00 Intake & Output 09/25/16 09/26/16 09/26/16 18:59 06:59 18:59 Intake Total 480 Balance 480 Intake: Oral 480 Other: Voiding Method Bedside Commode Bedside Commode Bedside Commode # Voids 2 4 2 - Exam GENERAL EXAM: Alert, comfortable in no apparent distress. HEAD: Normocephalic. EYES: Normal reaction of pupils, equal size. NOSE: Clear with pink turbinates. THROAT: No erythema or exudates. NECK: No masses, no JVD. CHEST: No chest wall deformity. LUNGS: Equal air entry with no crackles, wheeze, rhonchi or dullness. CVS: S1 and S2 normal with no audible murmurs, regular rhythm. ABDOMEN: Soft, normal bowel sounds, no guarding or rigidity. SPINE: No scoliosis or deformity SKIN: No rashes CENTRAL NERVOUS SYSTEM: No focal deficits, tone is normal in all 4 extremities. Extremities: There is no significant peripheral edema. No clubbing, no cyanosis. Peripheral pulses are intact. - Labs CBC & Chem 7: 09/26/16 12:21 09/26/16 12:21 Labs: Abnormal Lab Results - Last 24 Hours (Table) 09/26/16 Range/Units 12:21 Carbon Dioxide 21 L (22-30) mmol/L BUN 20 H (7-17) mg/dL Glucose 100 H (74-99) mg/dL Assessment and Plan Plan: Assessment 1 advanced oxygen-dependent COPD with no evidence of any COPD exacerbation of this point in time. To my judgment, the patient's COPD is currently inactive in stable 2 liver metastatic lesions. This was an incidental finding as the patient presented with right upper quadrant/flank pain and showed an abnormal LFTs and ultrasound of the liver and following that the CAT scan of the chest that was done in a CT angios protocol showed multiple innumerable liver lesions suggestive of metastatic disease. At this point in time there may be some concern for metastatic breast cancer based on her history although other alternative primaries cannot be completely excluded 3 left upper lobe subcentimeter pulmonary nodules that has remained stable 4 history of benign lung lesion status post wedge resection from the right lung 5 right breast cancer status post bilateral mastectomy followed by chemoradiation therapy 2013 currently on from Femera 6 chronic lymphedema of the upper extremities right more than left 7 massive DVT and pulmonary embolism in 2000 status post IVC filter placement and the patient is on lifelong articulation with warfarin and the PT/INR was therapeutic at this point 8 hypothyroidism 9 hyperlipidemia 10 varicose veins involving lower extremities bilaterally Plan The patient was seen and evaluated by Dr. Mina. She is stable from the pulmonary standpoint. No clear evidence of a pneumonia. Oncology has been consulted and we'll determine whether the patient will have a liver biopsy either inpatient or in the outpatient setting. Continue with her bronchodilators and Symbicort. We'll continue to follow make further recommendations based on her clinical status.
--- NOTE | 2016-09-26 17:01 | P.CONS ---
History of Present Illness - Reason for Consult Consult date: 09/26/16 breast cancer with liver mets Requesting physician: Yessenia Melissa - Chief Complaint SOB - History of Present Illness Mrs. Spencer is a very pleasant female pt of Dr. Maza who presented in early [address] Goss with painful, hardening of Rt breast x 6 months, she never had a Mammogram before, diagnostic mammogram in October 2013 reveled significant architectural distortion in upper outer quadrant of Rt. 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 Rt Breast ER/MT 90%/50%, [id number] was positive by FISH, lt Breast was ER/MT 60%/1%, [id number] could not be done. She had Rt Breast skin bx at 1 O'Clock on 11/22/2013, invasive ductal carcinoma. She was started on weekly taxol x 6 cycles and and herceptin Q 21 days x 1 year. After initial 6 cycles pt had Bilateral mastectomy, 4.5cm tumor in Rt. Breast, LN positive, all margins negative, 1.5 cm tumor in Lt. Breast, infiltrating lobular, grade II, sentinel lymph node negative (1). Once healed from surgery she started radiation to right chest wall. Once therapy complete pt was initiated on femara - about November 2014. She has been followed Q 3 months , last visit was in May 2016, she continued to tolerate Femara well, CT chest was negative, no liver mets were visible on review of that image. Pt did well up until the last 1-2 weeks, she has had progressive SOB and RUQ pain, she denied fever, dysphagia, wt. loss, nausea, diarrhea or constipation, her RLE is chronically swollen. She is being treated for RML pneumonia. Dr. Tamez did review CT images from May and yesterday, the liver lesions are new since May. The patient has advanced COPD and prior Hx of PE at least 11 years ago, she had an IVC filter placed after provoked Rt. Lower ext DVT, post op Rt. Knee Sx, she is on Coumadin for life. Review of Systems All systems: negative Constitutional: Reports as per HPI Past Medical History Past Medical History: Asthma, Cancer, COPD, Deep Vein Thrombosis (DVT), Hyperlipidemia, Osteoarthritis (OA), Pulmonary Embolus (PE), Thyroid Disorder Additional Past Medical History / Comment(s): Massive PE and bilateral DVT (2000 ), post IVC filter and the patient is on long terms anticoagulation, COPD hypothyroidism, hyperlipidemia, breast cancer right-sided, status post bilateral mastectomy followed by chemoradiation therapy , lymphedema involving the UE (right morte than left) and the patient has been and disease remission according to the third also was latest office evaluation , benign lung lesion on the right, varicose veins, History of Any Multi-Drug Resistant Organisms: None Reported Past Surgical History: Appendectomy, Back Surgery, Bladder Surgery, Breast Surgery, Hysterectomy, Joint Replacement, Tonsillectomy Additional Past Surgical History / Comment(s): GERDA CATARACTS. RIZWANA FILTER. RIGHT KNEE REPLACEMENT. VEIN STRIPPING. PORT-O-CATH. mult surgeries on rt knee. arthroscopic rt knee, wedge resection rt lung, D&C, gerda mastectomy; benign lesions removed 10/13/15 RYLEY; Past Anesthesia/Blood Transfusion Reactions: No Reported Reaction Additional Past Anesthesia/Blood Transfusion Reaction / Comm: PT ADOPTED, NO FAMILY HISTORY. Past Psychological History: Anxiety Smoking Status: Former smoker Past Alcohol Use History: None Reported Past Drug Use History: None Reported Additional History: Adopted, family history unknown Medications and Allergies Home Medications Medication Instructions Recorded Confirmed Type Aspirin EC [Ecotrin Low Dose] 81 mg PO DAILY 10/15/15 09/24/16 History Atorvastatin [Lipitor] 10 mg PO HS 10/15/15 09/24/16 History Fluticasone/Salmeterol [Advair 1 puff INHALATION RT-BID 10/15/15 09/24/16 History 500-50 Diskus] Letrozole [Femara] 2.5 mg PO DAILY 10/15/15 09/24/16 History Levothyroxine Sodium [Levoxyl] 112 mcg PO DAILY 10/15/15 09/24/16 History Meclizine HCl 25 mg PO DAILY PRN 10/15/15 09/24/16 History Promethazine HCl/Codeine 5 ml PO DAILY PRN 10/15/15 09/24/16 History [Prometh-Codein 6.25-10 mg/5 ml] hydrOXYzine HCL [Atarax] 10 mg PO BID 10/15/15 09/24/16 History predniSONE 5 mg PO DAILY 10/15/15 09/24/16 History Acetaminophen/Diphenhydramine 2 each PO 09/24/16 History [Tylenol PM Extra Strength] Cholecalciferol [Vitamin D3] 2,000 unit PO DAILY 09/24/16 09/24/16 History HYDROcodone/APAP 7.5-325MG [[place] 1 tab PO QID PRN 09/24/16 09/24/16 History 7.5-325] Ipratropium-Albuterol Nebulize 3 ml INHALATION RT-QID PRN 09/24/16 09/24/16 History [Duoneb 0.5 mg-3 mg/3 ml Soln] Vitamin C/Biotin [Hair, Skin and 1 tab PO DAILY 09/24/16 09/24/16 History Nails] Allergies Allergy/AdvReac Type Severity Reaction Status Date / Time Sulfa (Sulfonamide Allergy Unknown Verified 09/24/16 13:34 Antibiotics) Physical Exam Vitals: Vital Signs Temp Pulse Pulse Resp BP Pulse Ox 09/26/16 15:23 80 09/26/16 15:11 80 09/26/16 15:00 98.4 F 73 18 131/60 93 L 09/26/16 10:11 83 09/26/16 10:00 83 93 L 09/26/16 07:00 97.1 F L 83 16 134/72 92 L 09/26/16 00:36 94 L 09/25/16 23:00 97.0 F L 75 20 123/60 89 L 09/25/16 20:28 81 09/25/16 20:17 81 Intake and Output 09/26/16 09/26/16 09/26/16 06:59 14:59 22:59 Other: Voiding Method Bedside Commode Bedside Commode # Voids 4 2 - Constitutional General appearance: cooperative, no acute distress, obese - EENT Eyes: anicteric sclerae, PERRLA, normal appearance ENT: normal oropharynx - Neck Neck: no lymphadenopathy - Respiratory Respiratory: right: diminished, left: CTA - Cardiovascular Rhythm: regular Heart sounds: normal: S1, S2 leg Peripheral Edema: right: 1+, left: Trace - Gastrointestinal General gastrointestinal: soft, tenderness Localized gastrointestinal: tender: RUQ, epigastric periumbilical - Integumentary Integumentary: pale - Neurologic Neurologic: CNII-XII intact - Musculoskeletal Musculoskeletal: generalized weakness, strength equal bilaterally - Psychiatric Psychiatric: A&O x's 3, appropriate affect, intact judgment & insight Results CBC & Chem 7: 09/26/16 12:21 09/26/16 12:21 Labs: Abnormal Lab Results - Last 24 Hours (Table) 09/26/16 Range/Units 12:21 Carbon Dioxide 21 L (22-30) mmol/L BUN 20 H (7-17) mg/dL Glucose 100 H (74-99) mg/dL Comments: Gallbladder US report reviewed Chest x-ray: report reviewed CT scan - chest: report reviewed, image reviewed (Compared to CT chest dated 07/10) Assessment and Plan (1) Liver metastases Narrative/Plan: Pt will need biopsy of the liver for confirmation of metastatic breast cancer, also hormone status of the tumor will be needed as if she is positive there is oral therapy for treatment. I spoke with IR nurse, being that the pt is on ASA and coumadin this will be held now and pt will be sched for liver biopsy next or Friday (awaiting call back for best day/time). Will get that appt date and time to chart as soon as available. Status: Acute (2) Breast cancer Narrative/Plan: CT AP and bone scan will be ordered to have a complete picture of the extent of metastasis Tumor markers Status: Chronic
[2016-09-26] MEDS ORDERED: RX INFO: IV CONTRAST WAS GIVEN 1 EACH MISC MISCELLANE PRN (17:03)
[2016-09-26] MEDS: ATORVASTATIN 10 MG TAB PO SCH (22:40)
[2016-09-26] MEDS: LETROZOLE 2.5 MG TAB PO SCH (22:41)
[2016-09-27] MEDS: SODIUM CHLORIDE 0.9% 1,000 ML IV SCH ×4 (05:06→15:31)
[2016-09-27] MEDS: hydrOXYzine HCL 10 MG TAB PO SCH (08:11)
[2016-09-27] MEDS: PIPERACILLIN-TAZOBACTAM 3.375 GM in DEXTROSE/WATER 1 50ML.BAG IVPB SCH (08:11)
[2016-09-27] MEDS: LEVOTHYROXINE 112 MCG TAB PO SCH (08:12)
[2016-09-27] MEDS: predniSONE 5 MG TAB PO SCH (08:13)
[2016-09-27] MEDS: MORPHINE SULFATE 2 MG/ML SYRINGE IVP PRN ×2 (08:13→12:34)
[2016-09-27] MEDS: SYMBICORT 160-4.5 MCG INHALER INHALATION SCH ×2 (08:45→18:50)
[2016-09-27] MEDS: IPRATROPIUM-ALBUTEROL 3 ML NEB INHALATION SCH ×4 (08:46→18:50)
[2016-09-27] MEDS ORDERED: LEVOFLOXACIN 750 MG TAB PO SCH (09:00)
[2016-09-27 09:19] LABS: Anion Gap 11 mmol/L; Calcium 9.6 mg/dL (8.4-10.2); Carbon Dioxide 24 mmol/L (22-30); Chloride 109 mmol/L (98-107); Glucose 83 mg/dL (74-99); Non-African American GFR(MDRD) >60 (>60 ml/min/1.73 sqM); Sodium 144 mmol/L (137-145)
[2016-09-27 09:20] LABS: CH 29.8; CHCM 29.1; HCT 47.5 % (34.0-46.0); HDW 2.37; HGB 14.1 gm/dL (11.4-16.0); Hypochromasia Marked; MCH 30.6 pg (25.0-35.0); MCHC 29.7 g/dL (31.0-37.0); Macrocytosis Slight; Mean Platelet Volume 7.7; RBC 4.62 m/uL (3.80-5.40); RDW 14.7 % (11.5-15.5); WBC 7.6 k/uL (3.8-10.6)
[2016-09-27 09:26] LABS: Potassium 5.1 mmol/L (3.5-5.1)
[2016-09-27 09:27] LABS: Blood Urea Nitrogen 18 mg/dL (7-17)
[2016-09-27] MEDS: IOHEXOL 350 MG/ML 25 ML BOTTLE (ORAL USE) PO PRN ×2 (11:10→12:34)
[2016-09-27] MEDS: CHOLECALCIFEROL 1,000 UNIT TAB PO SCH (12:44)
[2016-09-27] MEDS: ASCORBIC ACID 500 MG TAB PO SCH (12:44)
--- NOTE | 2016-09-27 13:44 | CT ---
EXAMINATION TYPE: CT abdomen pelvis w con DATE OF EXAM: 09/27/2016 1:31 PM COMPARISON: NONE HISTORY: Metastatic Breast CA CT DLP: 1965 mGycm CONTRAST: CT scan of the abdomen and pelvis is performed with Oral Contrast and with IV Contrast, patient injec magui with 100 mL of Omnipaque 300. FINDINGS: LUNG BASES-: No visible nodule. No infiltrate. Small fixed hernia. LIVER/GB: Innumerable vague hypoattenuating lesions consistent with metastatic disease are seen throu ghout the liver involving all segments and lobes. The largest lesion is estimated at 3.9 cm. No evide nce for intrahepatic biliary ductal dilatation. Gallbladder is unremarkable. There is evidence of car diomegaly. PANCREAS: No inflammation. No distinct mass. SPLEEN: No splenic enlargement. No lesion seen. ADRENALS: No nodule. No thickening. KIDNEYS/BLADDER: No hydronephrosis. No nephrolithiasis. No disctinct renal mass. Urinary bladder g rossly unremarkable. BOWEL: Normal appendix. Normal bowel caliber. No inflammation. Diverticulosis without diverticuliti s. GENITAL ORGANS: Hysterectomy changes identified. LYMPH NODES: No greater than 1cm abdominal or pelvic lymph nodes are appreciated. AORTA: Atheromatous and ectatic change of the abdominal aorta. Chronic distal abdominal aortic dissec tion. OSSEOUS STRUCTURES: Sclerotic osseous lesions compatible with metastatic disease. OTHER: IVC filter is in place. IMPRESSION: 1. Innumerable vague hypoattenuating lesions consistent with metastatic disease are seen throughout t he liver involving all segments and lobes. 2. Scattered sclerotic osseous lesions compatible with bony metastases.
--- NOTE | 2016-09-27 14:15 | XR ---
EXAMINATION TYPE: XR chest 2V DATE OF EXAM: 09/27/2016 2:09 PM COMPARISON: Prior chest x-ray and CTA chest from 2 days earlier. HISTORY: COPD with shortness of breath TECHNIQUE: Frontal and lateral views of the chest are obtained. FINDINGS: Underlying emphysematous change is redemonstrated. There is redemonstration of right-sided volume loss. Right hilar fullness corresponds to adenopathy and is stable. There is no focal air spac e opacity, pleural effusion, or pneumothorax seen. The cardiac silhouette size is within normal limi ts with atherosclerotic thoracic aorta. The osseous structures are demineralized. IMPRESSION: Chronic emphysematous change with right-sided volume loss and hilar adenopathy redemonst rated, no acute pulmonary process present. No significant change from prior studies.
--- NOTE | 2016-09-27 14:19 | NM ---
EXAMINATION TYPE: NM bone scan whole body DATE OF EXAM: 09/27/2016 2:06 PM COMPARISON: CT abdomen and pelvis earlier today. CT chest 2 days earlier. HISTORY: Metastatic breast cancer. Delayed whole-body scanning was performed following the injection of 27.5 mCi Tc 99m MDP. Images acq uired 4.5 hours post injection. FINDINGS: Some areas of increased uptake anterior left ribs correspond to some healing fractures near costochon dral junction. There are additional old fractures anteriorly in right ribs without abnormal hypermeta bolic uptake. Slight scoliotic curvature throughout the spine is present. No definitive abnormal upta ke is seen to correspond to scattered small sclerotic foci. Lucency from prosthesis is noted at right knee level. Increased uptake consistent with degenerative c hanges seen at level of left knee. Increase uptake right hip level corresponds to level of prior frac ture and fixation surgery. IMPRESSION: No convincing scintigraphic evidence of metastatic disease to the bone. Areas of small sc lerotic foci can be followed.
[2016-09-27] MEDS: DOXYCYCLINE 50 MG CAP PO SCH ×2 (14:33→21:56)
[2016-09-27] MEDS: HYDROcodone/APAP 7.5-325MG 1 EACH TAB PO PRN ×2 (14:34→21:28)
--- NOTE | 2016-09-27 15:33 | CDI ---
In responding to this query, please exercise your independent professional judgment. The [facility] Coding Staff and Clinical Documentation Specialists appreciate your assistance in clarifying documentation, maintaining compliance with coding guidelines, accurately documenting patients condition and capturing severity of illness. The fact that a question is asked does not imply that any particular answer is desired or expected. Communication forms are a method of clarifying documentation and are not made part of the Legal Health Record. Thank you in advance for your clarification. Last Revision, October 2015 Petra Harrison [address] [place] [address] Documentation Clarification Form Date: 09/26/2016 11:40:00 AM From: Kel Maier, RN, BSN, CDI Admit Date: 09/24/2016 3:24:00 PM Patient Name: Randall Spencer Visit Number: [id number] Dr. Shabbir Goss: "COPD with home oxygen dependence" is documented in the H&P and pulmonary consult. History/Risk Factors: 81 yo female with a history of COPD, asthma, breast CA and massive PE Tobacco use: "former smoker" Home oxygen: 2-2.5L ATC Clinical Indicators: Pulse oximetry: Spo2 90-95% 2-4L Lung/Breathing assessment: "diminished", RR: 16-20 Treatment: duonebs, oxygen @2-4L since admit In your professional opinion, can you please clarify if these findings signify one of the following conditions? Acuity: o Acute o Chronic o Acute on Chronic Respiratory Status: o Respiratory failure o Respiratory failure with hypercapnia o Respiratory failure with hypoxia o Acute Respiratory Distress o Other Diagnosis, please specify o Unable to determine Please document in your progress notes and discharge summary in order to capture severity of illness and risk of mortality. Include clinical findings that support your diagnosis. FYI: Press F11 to launch patient chart. Place X here if this finding has no clinical significance, is not applicable or if you are not able to provide any additional documentation. MTDD
--- NOTE | 2016-09-27 18:02 | P.PN ---
Subjective This is a very pleasant 81-year-old female patient who came into the hospital because of some discomfort in the right upper quadrant area, right lower chest and some radiation to the back involving the flank. She is known to have chronic COPD and she's been oxygen dependent for many years. She also has history of breast cancer involving the right breast and the patient underwent bilateral mastectomy followed by chemotherapy and radiation therapy and she has been maintained on Femara and she has been followed up by Dr. magnolia capellan and based on her latest evaluation 2015 she was told to be and disease remission. She also has a chronic left upper lobe scar, subcentimeter nodule, that has been monitored by serial CAT scans and I noted the last CAT scan was done on this patient from May 2016. This patient also reports a previous wedge resection of a lung lesion that was done many years back and this turned out to be benign and there was no evidence of any malignancy. She is on left lung and to coagulation with warfarin regarding massive DVT and pulmonary embolism and the patient also has an IVC filter in place During this current admission, the patient was seen in the emergency department a CAT scan of the chest was done. There was no other degree of emphysema as expected. The left upper lobe pulmonary nodule has remained unchanged and it is subcentimeter in size. However, one concerning finding was multiple liver lesions that were noted and was suggestive of metastatic disease. The patient's liver function tests including the AST and LAT are elevated. Alkaline phosphatase is not elevated and the patient does not have any bilirubin elevation. The patient had a ultrasound of the abdomen which again raises the suspicion for metastatic liver disease based on the fact that multiple lesions in the liver was identified. She is seen again today 09/26/2016 in follow-up. She is awake and alert in no acute distress. She is stable from the pulmonary standpoint. She denies any worsening shortness of breath, cough or congestion. No fever, no chills. She is maintaining good O2 saturations in the mid 90s on 3 L/m per nasal cannula. Her right upper quadrant pain has subsided somewhat. Seen and evaluated by oncology who may plan for either inpatient or outpatient biopsy of the liver. In the interim, we'll continue with her current medications including bronchodilators, Symbicort and in antibiotics in the form of Levaquin and Zosyn. The patient is seen again today 09/27/2016 in follow-up on the regular medical floor. She is awake and alert in no acute distress. She has been stable from the pulmonary standpoint. No clear evidence of pneumonia. Unfortunately the patient did have noted lesions and the liver and was seen and evaluated by oncology services. She had undergone a bone scan today which revealed no convincing evidence of metastatic disease to the bones. However, a CAT scan of the abdomen and pelvis revealed innumerable vague hypoattenuating lesions consistent with metastatic disease seen throughout the liver involving all segments and lobes. There is scattered sclerotic osseous lesions compatible with bony metastasis. Objective - Vital Signs Vital signs: Vital Signs Temp 99.2 F 09/27/16 15:00 Pulse 68 09/27/16 15:14 Resp 18 09/27/16 15:00 BP 192/85 09/27/16 15:00 Pulse Ox 94 L 09/27/16 15:00 Intake & Output 09/26/16 09/27/16 09/27/16 18:59 06:59 18:59 Intake Total 280 Output Total 100 Balance 280 -100 Intake: Oral 280 Output: Urine 100 Other: Voiding Method Bedside Commode Bedside Commode Bedside Commode # Voids 2 3 5 - Exam GENERAL EXAM: Alert, comfortable in no apparent distress. HEAD: Normocephalic. EYES: Normal reaction of pupils, equal size. NOSE: Clear with pink turbinates. THROAT: No erythema or exudates. NECK: No masses, no JVD. CHEST: No chest wall deformity. LUNGS: Equal air entry with no crackles, wheeze, rhonchi or dullness. CVS: S1 and S2 normal with no audible murmurs, regular rhythm. ABDOMEN: Soft, normal bowel sounds, no guarding or rigidity. SPINE: No scoliosis or deformity SKIN: No rashes CENTRAL NERVOUS SYSTEM: No focal deficits, tone is normal in all 4 extremities. Extremities: There is no significant peripheral edema. No clubbing, no cyanosis. Peripheral pulses are intact. - Labs CBC & Chem 7: 09/27/16 08:57 09/27/16 08:57 Labs: Abnormal Lab Results - Last 24 Hours (Table) 09/26/16 09/26/16 09/27/16 Range/Units 12:21 12:21 08:57 Hct 47.5 H (34.0-46.0) % MCV 103.0 H (80.0-100.0) fL MCHC 29.7 L (31.0-37.0) g/dL Chloride (98-107) mmol/L BUN (7-17) mg/dL CA 15-3 Antigen >500.0 H (<35.1) U/mL CA 27-29 3115.0 H (0.0-38.5) U/mL 09/27/16 Range/Units 08:57 Hct (34.0-46.0) % MCV (80.0-100.0) fL MCHC (31.0-37.0) g/dL Chloride 109 H (98-107) mmol/L BUN 18 H (7-17) mg/dL CA 15-3 Antigen (<35.1) U/mL CA 27-29 (0.0-38.5) U/mL Assessment and Plan Plan: Assessment 1 advanced oxygen-dependent COPD with no evidence of any COPD exacerbation of this point in time. To my judgment, the patient's COPD is currently inactive in stable 2 liver metastatic lesions. This was an incidental finding as the patient presented with right upper quadrant/flank pain and showed an abnormal LFTs and ultrasound of the liver and following that the CAT scan of the chest that was done in a CT angios protocol showed multiple innumerable liver lesions suggestive of metastatic disease. At this point in time there may be some concern for metastatic breast cancer based on her history although other alternative primaries cannot be completely excluded. 09/27/2016 Computed tomography scan of the abdomen and pelvis today revealed innumerable vague hypoattenuating lesions consistent with metastatic disease seen throughout the liver involving all segments and lobes. There is also scattered sclerotic osseous lesions compatible with bony metastasis. 3 left upper lobe subcentimeter pulmonary nodules that has remained stable 4 history of benign lung lesion status post wedge resection from the right lung 5 right breast cancer status post bilateral mastectomy followed by chemoradiation therapy 2013 currently on from Femera 6 chronic lymphedema of the upper extremities right more than left 7 massive DVT and pulmonary embolism in 2000 status post IVC filter placement and the patient is on lifelong articulation with warfarin and the PT/INR was therapeutic at this point 8 hypothyroidism 9 hyperlipidemia 10 varicose veins involving lower extremities bilaterally Plan The patient was seen and evaluated by Dr. Mina. She is stable from the pulmonary standpoint. No clear evidence of a pneumonia. Continue with her bronchodilators and Symbicort. Oncology has been consulted and is recommending liver biopsy to confirm the suspected metastatic breast cancer. Computed tomography scan of the abdomen and pelvis, bone scans reviewed. The patient has been on warfarin and aspirin which both will need to be stopped for several days prior to her procedure. Possibly next or Friday. Hormone status of the tumor will be evaluated as well. We'll continue to follow and make further recommendations based on her clinical status.
[2016-09-27 19:14] LABS: INR 1.4 (<1.1); Prothrombin Time 13.9 sec (9.0-12.0)
--- NOTE | 2016-09-27 21:13 | PN ---
Patient is an 81-year-old who came in with acute on chronic hypercapnic respiratory failure secondary to COPD exacerbation. I increased the dose of steroids today. Patient has diffuse metastatic disease including ( ) probably primary being breast cancer. Patient will need a biopsy, which can be done as an outpatient. Patient does use oxygen 2 liters at home. Patient right now is on 4 or 5 L of oxygen at this point of time. Continue on COPD treatment. I do not believe patient has pneumonia. Patient's antibiotics will be discontinued and patient's Zosyn and levofloxacin will be discontinued and patient will be started on doxycycline for bronchitis. REVIEW OF SYSTEMS: CARDIOVASCULAR: No chest pain, no orthopnea, no PND, no palpitations. PULMONARY: Continued shortness of breath. GASTROINTESTINAL: No diarrhea, nausea or vomiting. No abdominal pain. Normoactive bowel sounds. NEUROLOGIC: No headaches, no weakness, no numbness. Medications were reviewed. PHYSICAL EXAMINATION: VITAL SIGNS: Temperature 99.2, pulse of 68, respiratory rate of 18. Blood pressure is 192/85. Saturating at 94% on 4 L of oxygen by nasal cannula. GENERAL: The patient is alert and oriented x3, not in any acute distress. Well developed, well nourished. HEENT: Pupils are round and equally reacting to light. EOMI. No scleral icterus. No conjunctival pallor. Normocephalic, atraumatic. No pharyngeal erythema. No thyromegaly. CARDIOVASCULAR: S1 and S2 present. No murmurs, rubs, or gallops. PULMONARY: Patient has decreased air entry into bilateral lung blanc. Expiratory wheezing was appreciated. ABDOMEN: Soft, nontender, nondistended, normoactive bowel sounds. No palpable organomegaly. MUSCULOSKELETAL: No joint swelling or deformity. EXTREMITIES: No cyanosis, clubbing, or pedal edema. NEUROLOGICAL: Gross neurological examination did not reveal any focal deficits. SKIN: No rashes. LABORATORY DATA: Bone scan, CT of the abdomen and pelvis were reviewed. Other laboratory data is insignificant. ASSESSMENT AND PLAN: 1. Acute on chronic hypercapnic respiratory failure secondary to chronic obstructive pulmonary disease exacerbation. Continue with systemic steroids, inhalational treatments. 2. Diffuse metastatic disease, probably primary being breast cancer. Patient's Coumadin is being held and antiplatelet therapy is being held for possibility of biopsy. If patient's respiratory status improves before biopsy, patient will be discharged home, and we will bring her back for biopsy. If patient ends up staying here until stipulated time as directed by Interventional Radiology, patient will get biopsy here. 3. History of benign lung lesion, status post wedge resection secondary to that. 4. Lymphedema of the right upper extremity secondary to mastectomy and lymph node removal. 5. History of massive deep venous thrombosis with IVC filter placement. 6. Hypothyroidism. 7. Hyperlipidemia. 8. Bilateral lower limb varicose veins. Patient will be started on heparin for DVT prophylaxis.
[2016-09-27] MEDS: HEPARIN SODIUM,PORCINE 5,000 UNIT/ML 1 ML VIAL SQ SCH (21:56)
[2016-09-27] MEDS: ATORVASTATIN 10 MG TAB PO SCH (21:56)
[2016-09-27] MEDS: LETROZOLE 2.5 MG TAB PO SCH (21:56)
[2016-09-28] MEDS: LEVOTHYROXINE 112 MCG TAB PO SCH (06:46)
[2016-09-28] MEDS: predniSONE 20 MG TAB PO SCH (08:04)
[2016-09-28] MEDS: DOXYCYCLINE 50 MG CAP PO SCH ×2 (08:04→20:03)
[2016-09-28] MEDS: HEPARIN SODIUM,PORCINE 5,000 UNIT/ML 1 ML VIAL SQ SCH ×2 (08:04→20:04)
[2016-09-28] MEDS: HYDROcodone/APAP 7.5-325MG 1 EACH TAB PO PRN ×2 (08:10→20:15)
[2016-09-28 08:42] LABS: CH 30.5; CHCM 30.5; HCT 46.5 % (34.0-46.0); HDW 2.41; HGB 13.9 gm/dL (11.4-16.0); Hypochromasia Moderate; MCH 29.9 pg (25.0-35.0); MCHC 29.8 g/dL (31.0-37.0); MCV 100.3 fL (80.0-100.0); Macrocytosis Slight; Mean Platelet Volume 7.9; RBC 4.64 m/uL (3.80-5.40); RDW 14.9 % (11.5-15.5); WBC 6.7 k/uL (3.8-10.6)
[2016-09-28] MEDS: SYMBICORT 160-4.5 MCG INHALER INHALATION SCH ×2 (08:57→19:50)
[2016-09-28] MEDS: IPRATROPIUM-ALBUTEROL 3 ML NEB INHALATION SCH ×4 (08:57→19:50)
[2016-09-28 09:01] LABS: Anion Gap 9 mmol/L; Blood Urea Nitrogen 21 mg/dL (7-17); Calcium 9.3 mg/dL (8.4-10.2); Carbon Dioxide 30 mmol/L (22-30); Chloride 103 mmol/L (98-107); Glucose 96 mg/dL (74-99); Non-African American GFR(MDRD) >60 (>60 ml/min/1.73 sqM); Potassium 4.4 mmol/L (3.5-5.1); Sodium 142 mmol/L (137-145)
[2016-09-28] MEDS: ASCORBIC ACID 500 MG TAB PO SCH (12:29)
[2016-09-28] MEDS: CHOLECALCIFEROL 1,000 UNIT TAB PO SCH (12:29)
--- NOTE | 2016-09-28 15:41 | PN ---
INTERVAL HISTORY: Ms. Spencer is an 81-year-old female with a past medical history of breast cancer, asthma, COPD, DVT, hyperlipidemia, osteoarthritis, pulmonary embolism, thyroid disorder admitted to the hospital with a chief complaint of cough and difficulty in breathing. The patient is currently being treated for COPD exacerbation with steroids, breathing treatments and antibiotic. The patient did have a CAT scan of her chest during this admission, which was showing multiple liver lesions which are significant for metastasis. Dr. Tamez, Oncology, is on board and currently planning to get a biopsy of the liver lesion to find the primary. The primary most likely they think is from her breast cancer. Today, the patient is sitting up in the bed, appears to be in no acute distress. She does not have any active complaints. She states that her breathing has improved. REVIEW OF SYSTEMS: CONSTITUTIONAL: Denies having any fevers, chills, or rigors. RESPIRATORY: No cough. No difficulty in breathing. Breathing much better than couple of days back. CARDIOVASCULAR: No chest pain. No palpitations. GI: No abdominal pain, nausea, vomiting, or diarrhea. Her abdomen is distended and states no abdominal pain. On examination, patient's vital signs temperature 97.2, heart rate 70, respiratory rate 16, blood pressure 151/68, saturating at 95% on 4 L of nasal cannula. GENERAL EXAMINATION: Patient appears to be appropriate for her age. No acute distress. HEAD: Atraumatic, normocephalic. EYES: Pupils, round, and reactive to light. NECK: No JVD. No thyromegaly. CARDIOVASCULAR: S1, S2 heard. RESPIRATORY: Bilateral breath sounds are positive. No wheezes or crackles. Diminished in all lung blanc. GI: Abdomen is distended, soft, nontender. Bowel sounds are positive. EXTREMITIES: No edema. No cyanosis. No clubbing. HOME ECONOMICS TEACHER: Alert, awake, oriented x3. No focal neurological deficits. PSYCHIATRIC: Appropriate mood and affect. MUSCULOSKELETAL: No joint swelling or deformity. SKIN: No rashes. PATIENT'S LABS: White count is 6.7, hemoglobin 13.9, platelets of 189. Sodium 142, potassium 4.4, chloride 103, bicarb 30, BUN 21, creatinine 0.79. Patient's medications have been reviewed. The patient also had and abdominal pelvis CAT scan showing high hypoattenuation lesions consistent with metastatic disease seen throughout the liver and also sclerotic osseous lesions compatible bony metastasis. ASSESSMENT AND PLAN: 1. Acute on chronic hypercapnic respiratory failure secondary to chronic obstructive pulmonary disease exacerbation. Continue with antibiotics, systemic steroids and breathing treatments. 2. Diffuse metastatic lesions in the liver involving all lobes most probably primary being breast cancer. Patient's Coumadin is being and antiplatelet therapy also held for possible biopsy. 3. History of benign lung lesion, status post wedge resection in the past. 4. Lymphedema of the right upper extremity secondary to mastectomy and lymph node removal. History of massive deep venous thrombosis with IVC filter placement in the past. 5. Hypothyroidism. 6. Hyperlipidemia. 7. Gastrointestinal and deep venous thrombosis prophylaxis. PLAN: Plan is to continue the patient on the current medications regimen. Her Coumadin and aspirin are being held in view of her biopsy to be done. If patient's breathing status improved, she will be discharged tomorrow and she can follow up as outpatient for the biopsy and further recommendations to follow depending on the progress of the patient.
[2016-09-28] MEDS: SODIUM CHLORIDE 0.9% 1,000 ML IV SCH (16:49)
[2016-09-28] MEDS: ATORVASTATIN 10 MG TAB PO SCH (20:03)
[2016-09-28] MEDS: LETROZOLE 2.5 MG TAB PO SCH (20:04)
[2016-09-28 23:49] VITALS: TEMP 97.7
[2016-09-29] MEDS: HYDROcodone/APAP 7.5-325MG 1 EACH TAB PO PRN (04:08)
[2016-09-29] MEDS: LEVOTHYROXINE 112 MCG TAB PO SCH (06:44)
[2016-09-29] MEDS: DOXYCYCLINE 50 MG CAP PO SCH (07:42)
[2016-09-29] MEDS: HEPARIN SODIUM,PORCINE 5,000 UNIT/ML 1 ML VIAL SQ SCH (07:42)
[2016-09-29] MEDS: predniSONE 20 MG TAB PO SCH (07:43)
[2016-09-29 08:03] VITALS: BP 145/74; RESP 16
[2016-09-29 08:13] LABS: INR 1.2 (<1.1)
[2016-09-29] MEDS: SYMBICORT 160-4.5 MCG INHALER INHALATION SCH (08:45)
[2016-09-29] MEDS: IPRATROPIUM-ALBUTEROL 3 ML NEB INHALATION SCH ×2 (08:45→12:25)
[2016-09-29 09:43] VITALS: PULSE 76
--- NOTE | 2016-09-30 17:54 | DS ---
DATE OF ADMISSION: 09/24/2016 DATE OF DISCHARGE: 09/29/2016 HOSPITAL COURSE: Ms. Spencer is an 81-year-old female with a past medical history of breast cancer, asthma, COPD, DVT, hyperlipidemia, osteoarthritis, pulmonary embolism, thyroid disorder, admitted to the hospital with the chief complaint of cough and difficulty in breathing. Patient did have a CT scan of the chest during this admission, and it was showing multiple liver lesions that were significant for metastasis. So Oncology Dr. Tamez has been consulted. The patient is being currently treated for COPD exacerbation with breathing treatments, steroids and antibiotics. Patient did improve in her symptoms of breathing. As per Dr. Tamez's recommendations, the patient is to have a biopsy of the liver lesion to find a primary for her liver metastases. So the patient has been held off of aspirin and Coumadin during the hospital stay, as she is scheduled for the biopsy early next week. Patient states that her breathing is back to her baseline and she does not have any other complaints. Today on examination, patient's vital signs are within normal limits. On her lung exam, patient's bilateral breath sounds are positive. No wheezes but decreased breath sounds in all lung blanc. PATIENT'S DISCHARGE DIAGNOSES: 1. Acute on chronic hypercapnic respiratory failure secondary to chronic obstructive pulmonary disease exacerbation due to acute bronchitis. 2. Diffuse metastatic lesions in the liver involving all lobes. Most probably the primary would be breast cancer, as she had this cancer in the past. 3. History of benign lung lesion, status post wedge resection in the past. 4. Lymphedema of the right upper extremity secondary to mastectomy and lymph node removal. 5. History of massive deep venous thrombosis with IVC filter placement in the past. 6. Hypothyroidism. 7. Hyperlipidemia. 8. Multiple liver lesions. Patient is being scheduled for a biopsy early next week, so she has been held off of her aspirin and Coumadin. PATIENT'S DISCHARGE MEDICATIONS: 1. Lipitor 10 mg p.o. at bedtime. 2. Advair 500/50 one puff b.i.d. 3. Femara 2.5 mg p.o. daily. 4. Levothyroxine 112 mcg p.o. daily. 5. Meclizine 25 mg p.o. daily p.r.n. 6. Promethazine codeine 6.25/10 mg 5 mL p.o. daily. 7. Atarax 10 mg p.o. b.i.d. 8. Prednisone 40 mg for the next 5 days and then continue with 5 mg p.o. daily. 9. Tylenol PM Extra Strength 2 tablets p.o. q.8 hours p.r.n. for pain. 10. Vitamin D3 2000 units p.o. daily. 11. Jefferson 7.5/325 one tablet 4 times a day p.r.n. for pain. 12. DuoNeb inhalations. 13. Doxycycline 100 mg p.o. b.i.d. for 5 days. Patient is advised to be off her aspirin and Coumadin until she gets the liver biopsy done, which is being scheduled for early next week by Dr. Tamez. FOLLOWUP: Patient is advised to follow up with Dr. Tamez and also with her primary care physician, Dr. Shabbir Goss, within one week's time. The patient is given an appointment with Dr. Maza on 10/08/2016 at 10:45 a.m. Activity as tolerated. Low-fat diet. Patient is being discharged home in stable condition. More than 35 minutes spent towards the discharge of the patient.
== END 2016-09-29 13:50 | disposition home health service (06) | DRG 190 ==
LOC: EC 13:26 → 4MS4W 15:24
PROVIDERS: ADMIT Family Medicine; ATTEND Family Medicine
DX: J44.0 Chronic obstructive pulmonary disease with (acute) lower respiratory infection (principal); J96.22 Acute and chronic respiratory failure with hypercapnia; C78.7 Secondary malignant neoplasm of liver and intrahepatic bile duct; C79.51 Secondary malignant neoplasm of bone; Z99.81 Dependence on supplemental oxygen; J20.9 Acute bronchitis, unspecified; J44.1 Chronic obstructive pulmonary disease with (acute) exacerbation; R91.8 Other nonspecific abnormal finding of lung field; I83.90 Asymptomatic varicose veins of unspecified lower extremity; J45.909 Unspecified asthma, uncomplicated; I97.2 Postmastectomy lymphedema syndrome; E78.5 Hyperlipidemia, unspecified; E03.9 Hypothyroidism, unspecified; F41.9 Anxiety disorder, unspecified; M19.90 Unspecified osteoarthritis, unspecified site; Z86.711 Personal history of pulmonary embolism; Z86.718 Personal history of other venous thrombosis and embolism; Z90.13 Acquired absence of bilateral breasts and nipples; Z85.3 Personal history of malignant neoplasm of breast; Z92.3 Personal history of irradiation; Z92.21 Personal history of antineoplastic chemotherapy; Z90.710 Acquired absence of both cervix and uterus; Z90.49 Acquired absence of other specified parts of digestive tract; Z98.42 Cataract extraction status, left eye; Z98.41 Cataract extraction status, right eye; Z96.653 Presence of artificial knee joint, bilateral; Z87.891 Personal history of nicotine dependence; Z88.2 Allergy status to sulfonamides; Z95.828 Presence of other vascular implants and grafts; Z79.01 Long term (current) use of anticoagulants; Z79.82 Long term (current) use of aspirin; Z79.811 Long term (current) use of aromatase inhibitors; Z79.51 Long term (current) use of inhaled steroids; Z79.52 Long term (current) use of systemic steroids; Z79.899 Other long term (current) drug therapy
CPT/HCPCS: 36415; 71020; 71275; 74177; 76705; 78306; 80048; 80053; 81001; 82550; 82553; 83735; 84100; 84484; 85025; 85027; 85610; 85730; 86300; 93005; 94640; 94760; 96365; 96375; 99285

== ENCOUNTER 2016-10-04 09:08 | Day surgery (SDC) | payer MEDICARE ==
[~2016-10-04 09:08] MED LIST: ALPRAZolam 0.25 MG TAB PO ONE; HYDROmorphone 1 MG/ML 1 ML SYRINGE IVP PRN; SODIUM BICARB 4% 5 ML VIAL (0.48 MEQ/ML) MISCELLANE PRN
[2016-10-04 09:47] VITALS: TEMP 97.9
[2016-10-04 09:47] LABS: Mean Platelet Volume 7.7
[2016-10-04 10:01] LABS: Prothrombin Time 10.6 sec (9.0-12.0)
--- NOTE | 2016-10-04 10:51 | CT ---
EXAMINATION TYPE: CT guided aspiration DATE OF EXAM: 10/04/2016 10:46 AM COMPARISON: NONE HISTORY: Liver Mass CT DLP: 925mGycm PROCEDURE: The risks, applications, benefits and alternatives, were discussed with the patient and qu estions were answered. Informed consent was obtained. The patient was placed supine on the fluorosco pic table, prepped and draped in the usual sterile fashion. A 22-gauge system was utilized with direct passage of the needle into the left lobe liver lesion und er CT guidance. Samples were obtained with fine needle aspiration. Pathology confirmed adequate beny ple. The patient was stable throughout procedure and remained stable upon discharge from radiology. All e lements of maximal barrier and sterile technique were utilized. IMPRESSION: 1. Successful left lobe liver mass fine needle aspiration under CT guidance.
[2016-10-04 12:43] VITALS: RESP 18
[2016-10-04 14:15] VITALS: BP 156/73; PULSE 88
--- NOTE | 2016-10-23 09:29 | CDI ---
Ms Spencer was seen on 10/04 for a FNA of the liver. Pathology report is now available and diagnosis is as follows: Liver, fine needle aspiration: positive for carcinoma, consistent with metastasis from a breast primary. According to coding rules, the term "consistent with" is a term that is considered a probable or suspected condition in which we are required to get a confirmation from the physician regarding the correct diagnosis. Please clarify for reporting purposes. *metastatic liver carcinoma from breast *liver carcinoma, unknown primary *other (please specify) Please clarify your answer in an addendum to the procedure note or a discharge summary. Thank you for your time. CASA
== END 2016-10-04 14:16 | disposition home or self-care (01) ==
LOC: RADPROMAIN 09:08
PROVIDERS: ATTEND Internal Medicine Hematology & Oncology
DX: K76.89 Other specified diseases of liver (principal); C50.911 Malignant neoplasm of unspecified site of right female breast
CPT/HCPCS: 88305; 88173; 85049; 85610; 88342; 88341; 96374; 10022; J1170; 77012

== ENCOUNTER 2016-10-11 10:59 | Day surgery (SDC) | payer MEDICARE ==
[2016-10-09 15:19] VITALS: BMI 35.5
--- NOTE | 2016-10-11 06:14 | P.GSHP ---
History of Present Illness H&P Date: 10/11/16 CHIEF COMPLAINT: Recurrent breast cancer. HISTORY OF PRESENT ILLNESS: The patient is a 81-year-old female diagnosed with metastatic breast cancer. PAST MEDICAL HISTORY: See list PAST SURGICAL HISTORY: See list CURRENT MEDICATIONS: See list. ALLERGIES: See list. SOCIAL HISTORY: No active tobacco or alcohol use. FAMILY HISTORY: Noncontributory. REVIEW OF ORGAN SYSTEMS: CONSTITUTIONAL: Has weight loss. PHYSICAL EXAMINATION: Vital signs: Stable GENERAL: Well developed and in no acute distress. Pleasant. HEENT: No sclera icterus. Extraocular movements grossly intact. Moist buccal mucosa. Head is atraumatic, normocephalic. Hears conversational speech. No nasal drainage. NECK: Supple without lymphadenopathy. CHEST: Non-labored respirations and equal bilateral excursions. CARDIOVASCULAR: Irregular rate. Regular rhythm. ABDOMEN: Nontender. MUSCULOSKELETAL: No clubbing, cyanosis or edema. NEUROLOGIC: No focal or lateralizing signs. PSYCH: Appropriate affect. Alert and oriented to person, place and time. ASSESSMENT: 1. Metastatic breast cancer. 2. Need for chemotherapeutic access. PLAN: 1. Agree with Port-A-Cath placement. Past Medical History Past Medical History: Asthma, Cancer, COPD, Deep Vein Thrombosis (DVT), Hyperlipidemia, Liver Disease, Osteoarthritis (OA), Pulmonary Embolus (PE), Thyroid Disorder Additional Past Medical History / Comment(s): Massive PE and bilateral DVT (2000 ), post IVC filter and the patient is on long terms anticoagulation, hypothyroidism, hyperlipidemia, breast cancer right-sided, status post bilateral mastectomy followed by chemoradiation therapy , 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 Benign lung lesion on the right, varicose veins, liver lesions, wears O2 @ 2 1/2L. History of Any Multi-Drug Resistant Organisms: None Reported Past Surgical History: Appendectomy, Back Surgery, Bladder Surgery, Breast Surgery, Hysterectomy, Joint Replacement, Tonsillectomy Additional Past Surgical History / Comment(s): GERDA CATARACTS. RIZWANA FILTER. RIGHT KNEE REPLACEMENT. VEIN STRIPPING. PORT-O-CATH. mult surgeries on rt knee. arthroscopic rt knee, wedge resection rt lung, D&C, gerda mastectomy; benign lesions removed 10/13/15 [facility]; Past Anesthesia/Blood Transfusion Reactions: No Reported Reaction Additional Past Anesthesia/Blood Transfusion Reaction / Comment(s): PT ADOPTED, NO FAMILY HISTORY. Past Psychological History: Anxiety Smoking Status: Former smoker Past Alcohol Use History: None Reported Additional Past Alcohol Use History / Comment(s): Quit 31 years ago. Past Drug Use History: None Reported - Past Family History Mother Additional Family Medical History / Comment(s): Unknown Medications and Allergies Home Medications Medication Instructions Recorded Confirmed Type Atorvastatin [Lipitor] 10 mg PO HS 10/15/15 10/09/16 History Fluticasone/Salmeterol [Advair 1 puff INHALATION RT-BID 10/15/15 10/09/16 History 500-50 Diskus] Letrozole [Femara] 2.5 mg PO DAILY 10/15/15 10/09/16 History Levothyroxine Sodium [Levoxyl] 112 mcg PO DAILY 10/15/15 10/09/16 History Meclizine HCl 25 mg PO DAILY PRN 10/15/15 10/09/16 History Promethazine HCl/Codeine 5 ml PO DAILY PRN 10/15/15 10/09/16 History [Prometh-Codein 6.25-10 mg/5 ml] hydrOXYzine HCL [Atarax] 10 mg PO BID 10/15/15 10/09/16 History predniSONE 5 mg PO DAILY 10/15/15 10/09/16 History Cholecalciferol [Vitamin D3] 2,000 unit PO DAILY 09/24/16 10/09/16 History HYDROcodone/APAP 7.5-325MG [[place] 1 tab PO QID PRN 09/24/16 10/09/16 History 7.5-325] Ipratropium-Albuterol Nebulize 3 ml INHALATION RT-QID PRN 09/24/16 10/09/16 History [Duoneb 0.5 mg-3 mg/3 ml Soln] Vitamin C/Biotin [Hair, Skin and 1 tab PO DAILY 09/24/16 10/09/16 History Nails] Aspirin [Adult Low Dose Aspirin EC] 81 mg PO DAILY 09/30/16 10/09/16 History Warfarin [Coumadin] 5 mg PO DAILY 09/30/16 10/09/16 History Allergies Allergy/AdvReac Type Severity Reaction Status Date / Time Sulfa (Sulfonamide Allergy Unknown Verified 10/09/16 15:34 Antibiotics)
[~2016-10-11 10:59] MED LIST changes: -ALPRAZolam 0.25 MG TAB PO ONE; +HEPARIN SODIUM,PORCINE 5,000 UNIT/ML 1 ML VIAL SQ ONE; +LIDOCAINE 1% 20 ML VIAL (10MG/ML) FOR IV START INTRADERMA PRN; -SODIUM BICARB 4% 5 ML VIAL (0.48 MEQ/ML) MISCELLANE PRN; +ceFAZolin 2 GM in SODIUM CHLORIDE 0.9% 100 ML IVPB ONE
[2016-10-11 11:26] VITALS: RESP 20; TEMP 98.2
[2016-10-11] MEDS ORDERED: LIDOCAINE 1% 20 ML VIAL (10MG/ML) FOR IV START SQ ONE (11:27)
[2016-10-11] MEDS: LACTATED RINGERS 1,000 ML IV SCH ×2 (11:27→12:37)
[2016-10-11 11:55] LABS: Glucose,Whole Blood 135 mg/dL (75-99)
[2016-10-11 12:01] LABS: Basophils % (A) 0 %; CH 30.6; CHCM 31.6; Eosinophils # (A) 0.1 k/uL (0-0.7); Eosinophils % (A) 1 %; HCT 44.1 % (34.0-46.0); HDW 2.37; HGB 13.9 gm/dL (11.4-16.0); Luc # (Auto) 0.16; Luc % (Auto) 2; Lymphocytes # (A) 0.8 k/uL (1.0-4.8); Lymphocytes % (A) 8 %; MCH 30.7 pg (25.0-35.0); MCHC 31.6 g/dL (31.0-37.0); MCV 97.1 fL (80.0-100.0); Mean Platelet Volume 7.5; Monocytes # (A) 0.5 k/uL (0-1.0); Monocytes % (A) 5 %; Neutrophils # (A) 8.6 k/uL (1.3-7.7); Neutrophils % (A) 84 %; RBC 4.54 m/uL (3.80-5.40); RDW 14.6 % (11.5-15.5); WBC 10.2 k/uL (3.8-10.6); WBC (Perox) 10.42
[2016-10-11] MEDS ORDERED: fentaNYL (PF) 50 MCG/ML 2 ML AMP ONE (12:38)
[2016-10-11] MEDS ORDERED: LIDOCAINE 1% INJ 10MG/ML (20 ML MDV) ONE (12:38)
[2016-10-11] MEDS ORDERED: PROPOFOL 10 MG/ML 20 ML VIAL IV ONE (12:38)
[2016-10-11] MEDS ORDERED: MIDAZOLAM 2 MG/2 ML VIAL ONE (12:38)
[2016-10-11] MEDS ORDERED: KETAMINE 10 MG/ML 20 ML VIAL ONE (12:38)
[2016-10-11 12:48] LABS: INR 1.2 (<1.1); Prothrombin Time 11.7 sec (9.0-12.0)
[2016-10-11] MEDS ORDERED: HEPARIN SODIUM,PORCINE 10,000 UNIT/ML 1 ML VIAL IV ONE (13:06)
[2016-10-11] MEDS ORDERED: HEPARIN SODIUM,PORCINE 100 UNIT/ML 5 ML VIAL IV ONE ×2 (13:06)
[2016-10-11] MEDS ORDERED: LIDOCAINE 1% INJ 10MG/ML (20 ML MDV) SQ ONE ×2 (13:07)
[2016-10-11] MEDS ORDERED: ONDANSETRON 4 MG/2 ML VIAL IVP PRN (13:33)
[2016-10-11] MEDS ORDERED: NALOXONE 0.4 MG/ML 1 ML VIAL IV PRN (13:33)
[2016-10-11] MEDS ORDERED: HYDROcodone/APAP 5-325MG 1 EACH TAB PO PRN (13:33)
--- NOTE | 2016-10-11 13:33 | P.PCN ---
Date of Procedure: 10/11/16 Preoperative Diagnosis: Recurrent breast cancer, metastatic Postoperative Diagnosis: Same Procedure(s) Performed: Ultrasound guided placement of right internal jugular venous central catheter, Mediport, 6-Yakut Fluoroscopy, 5 second Anesthesia: PRETTY, local Surgeon: Ute iRos Estimated Blood Loss (ml): 10 Pathology: none sent Condition: stable Disposition: same day Operative Findings: Patent right internal carotid and right internal jugular vein.
[2016-10-11 13:40] VITALS: BP 127/74; PULSE 84
--- NOTE | 2016-10-11 13:57 | FL ---
EXAMINATION TYPE: FL guided central line placemt DATE OF EXAM: 10/11/2016 1:43 PM CLINICAL HISTORY: Breast cancer. TECHNIQUE: Fluoroscopy. COMPARISON: None. FINDINGS: Fluoroscopic guidance was provided during Port-A-Cath insertion procedure performed by Dr. Rios. A total of 5 seconds of fluoroscopic time was utilized during the procedure and 2 spot i mages are acquired. Intraoperative Images acquired show portions of right internal jugular Mediport c atheter with tip projecting over SVC. IMPRESSION: As Above.
--- NOTE | 2016-10-11 14:30 | XR ---
EXAMINATION TYPE: XR chest 1V confirm line [facility] DATE OF EXAM: 10/11/2016 2:14 PM COMPARISON: Chest x-ray from 2 weeks ago. HISTORY: Breast cancer status post Port-A-Cath placement. TECHNIQUE: Single portable frontal view of the chest is obtained. FINDINGS: There is new right internal jugular Mediport catheter with tip in SVC. There is chronic emp hysematous change with right-sided volume loss and basilar opacity felt to reflect scarring. There i s suspected tiny bilateral pleural effusions or pleural thickening. Left lung remains clear. The car diac silhouette size is within normal limits with atherosclerotic and ectatic thoracic aorta redemons trated. The osseous structures are demineralized. IMPRESSION: New right internal jugular Mediport catheter with tip in SVC, no evidence of sizable pne umothorax after catheter placement.
--- NOTE | 2016-10-14 07:59 | P.OP ---
Date of Procedure: 10/11/16 Description of Procedure: SURGEON: BRITTON GREWAL MD PREOPERATIVE DIAGNOSIS: 1. Need for chemotherapeutic access. 2. History of recurrent breast cancer, metastatic. POSTOPERATIVE DIAGNOSIS: 1. Need for chemotherapeutic access. 2. History of recurrent breast cancer, metastatic. OPERATION: 1. Ultrasound guided central venous access of the right internal jugular vein. 2. Ultrasound evaluation of the right internal jugular vein and right carotid artery. 3. Fluoroscopic guidance for central venous access right internal jugular vein, 5 sec. 4. Placement of a right internal jugular vein Port-A-Cath 6 Pashto. ANESTHESIA: MAC with 20 mL 1% lidocaine. ESTIMATED BLOOD LOSS: 10 mL. INDICATIONS: The patient is a 81-year-old female with recurrent breast cancer. Chemotherapeutic access was requested, hence surgical intervention was described. Benefits, risks, including bleeding, infection, need for further surgery, mechanical complications of her port and potential clot had been described. Informed consent was obtained. DESCRIPTION OR PROCEDURE: Patient was brought into the operating room, laid in supine position. After adequate IV sedation, the chest and right neck were prepped and draped in a standard sterile fashion including the shoulder with ChloraPrep. Ioban draping was placed along the chest. Timeout protocol was confirmed with the surgical team regarding the patient's name, procedure to be performed including preoperative medications for which she received IV antibiotics. Bilateral SCDs were placed. An ultrasound was used to capture views of the right internal jugular vein including right carotid artery, which was patent and without thrombus along its course. The right IJ was then localized using anesthetic for the skin. A 16 Pashto needle was used to access the IJ. Threading was without difficultly as the needle was advanced into the IJ with dark nonpulsatile venous blood. A J-wire was placed under fluoroscopic guidance. Two fingerbreadths distal to the clavicle, on the lateral third, a transverse 1.5 to 2 cm incision was deepened into the skin after localizing the skin. A pocket was created for the port. The port on the back table was flushed with heparinized saline and then attached to the catheter tubing. An adapter was fastened to the actual port site over the tubing. The port easily had fit snug into the pocket. A subcutaneous tunneler was placed along the open end of the tubing and brought out through the separate stab incision. Fluoroscopic guidance confirmed no kinking along the tubing and the port site. Next, the J-wire was exchanged for a catheter sheath for which the tubing was cut to 25 cm and then advanced through the catheter sheath. The Peel-away sheath was then removed and the tubing was secured at the junction of the superior vena cava as well as the right atrium. This was all done under fluoroscopic guidance for a total of 5 seconds. Easy pullback as well as return and aspiration was obtained of the port site. The skin incision was closed using layers using 3-0 Vicryl for the subcu followed by 4-0 Monocryl in a running subcuticular fashion. At the stick site this was also reapproximated using 4-0 Monocryl. The incisions were covered with gauze and Tegaderm. The skin was cleansed and Dermabond was applied. A total of 20 mL of local anesthetic was placed. At the end of the procedure, needle, sponge, and instrument count was verified correct by certified surgical technician. Heparin lock of 5 mL was placed. The patient was awoken and pain free and taken to the second stage postanesthesia care unit. The patient tolerated the procedure well. FINDINGS: 1. No thrombus encountered along the right carotid artery or internal jugular vein. 2. Access of the right internal jugular vein under ultrasound guidance. 3. Fluoroscopy of 5 seconds. 4. Final fluoroscopic image confirmed no mechanical kink of the port site or at the junction at the skin puncture site.
== END 2016-10-11 15:32 | disposition home or self-care (01) ==
LOC: OR 10:59
PROVIDERS: ATTEND Surgery Plastic and Reconstructive Surgery
DX: Z45.2 Encounter for adjustment and management of vascular access device (principal); C50.911 Malignant neoplasm of unspecified site of right female breast; C79.9 Secondary malignant neoplasm of unspecified site; J44.9 Chronic obstructive pulmonary disease, unspecified; I82.C12 Acute embolism and thrombosis of left internal jugular vein; J45.909 Unspecified asthma, uncomplicated; E07.9 Disorder of thyroid, unspecified; E03.9 Hypothyroidism, unspecified; E78.5 Hyperlipidemia, unspecified; Z86.711 Personal history of pulmonary embolism; Z86.718 Personal history of other venous thrombosis and embolism; Z88.2 Allergy status to sulfonamides; Z79.01 Long term (current) use of anticoagulants; Z79.891 Long term (current) use of opiate analgesic; Z79.51 Long term (current) use of inhaled steroids; Z79.52 Long term (current) use of systemic steroids; Z79.899 Other long term (current) drug therapy; Z87.891 Personal history of nicotine dependence
CPT/HCPCS: 85025; 85610; 85730; 36561; 77001; C1788; J2250; J1644 ×2; J1642; J0690; J2001; J3010; J2704; 99152; 99153

== ENCOUNTER 2016-10-20 09:38 | Observation (INO) | payer MEDICARE, OTHER ==
[2016-10-20] MEDS ORDERED: HYDROmorphone 1 MG/ML 1 ML SYRINGE IVP STA (11:36)
[2016-10-20 11:50] LABS: Basophils # (A) 0.1 k/uL (0-0.2); Basophils % (A) 1 %; CH 30.8; CHCM 31.9; Eosinophils # (A) 0.2 k/uL (0-0.7); Eosinophils % (A) 2 %; HCT 47.5 % (34.0-46.0); HDW 2.46; HGB 15.3 gm/dL (11.4-16.0); Luc # (Auto) 0.23; Luc % (Auto) 3; Lymphocytes % (A) 11 %; MCH 31.1 pg (25.0-35.0); MCHC 32.1 g/dL (31.0-37.0); MCV 96.9 fL (80.0-100.0); Mean Platelet Volume 8.2; Monocytes # (A) 0.6 k/uL (0-1.0); Monocytes % (A) 6 %; Neutrophils # (A) 7.1 k/uL (1.3-7.7); Neutrophils % (A) 78 %; RBC 4.91 m/uL (3.80-5.40); RDW 14.5 % (11.5-15.5); WBC 9.2 k/uL (3.8-10.6); WBC (Perox) 8.96
[2016-10-20 12:04] LABS: INR 2.1 (<1.1); Partial Thromboplastin Time 28.3 sec (22.0-30.0); Prothrombin Time 20.4 sec (9.0-12.0)
[2016-10-20 12:06] LABS: ALT 99 U/L (9-52); AST 145 U/L (14-36); Alkaline Phosphatase 190 U/L (38-126); Anion Gap 13 mmol/L; Blood Urea Nitrogen 21 mg/dL (7-17); Calcium 9.7 mg/dL (8.4-10.2); Carbon Dioxide 25 mmol/L (22-30); Chloride 104 mmol/L (98-107); Glucose 100 mg/dL (74-99); Non-African American GFR(MDRD) >60 (>60 ml/min/1.73 sqM); Potassium 4.7 mmol/L (3.5-5.1); Sodium 142 mmol/L (137-145); Total Bilirubin 1.1 mg/dL (0.2-1.3); Total Protein 6.9 g/dL (6.3-8.2)
--- NOTE | 2016-10-20 12:08 | XR ---
EXAMINATION TYPE: XR chest 1V portable DATE OF EXAM: 10/20/2016 12:03 PM Comparison: 10/11/2016 Clinical History: 81-year-old female with dyspnea Findings: There is dextroconvex scoliotic curvature causing deformity of the thoracic cage. Heart appears upper limits of normal in size. Volume loss within the lower right hemithorax similar right basilar opacit y probably atelectasis. Right anterior chest wall injection port with catheter tip at the upper to mi d SVC level. No new area of consolidation or pleural effusion. Hyperinflation with relative upper niki g lucencies. Impression: COPD, scoliosis, and chronic volume loss at the right base. No definite acute process.
[2016-10-20 12:11] LABS: Creatine Kinase 28 U/L (30-135)
[2016-10-20 12:23] LABS: Creatine Kinase MB 0.7 ng/mL (0.0-2.4); Troponin I <0.012 ng/mL (0.000-0.034)
[2016-10-20] MEDS ORDERED: RX INFO: IV CONTRAST WAS GIVEN 1 EACH MISC MISCELLANE PRN (12:55)
--- NOTE | 2016-10-20 15:23 | CT ---
INDICATION: Pain TECHNIQUE: Multiple, contiguous 2.5 mm axial cuts of the chest are obtained following the administration of IV contrast. High resolution axial image as well as, sagittal and coronal reformatted images are available. COMPARISON: CT dated 09/25/16 FINDINGS: No pulmonary embolus is identified. Atherosclerotic vascular disease. The aorta is within normal limits, no aneurysm or dissection. The cardiomediastinal structures are normal. No adenopathy or effusions. Mild bilateral lower lobe subsegmental atelectasis. Mild centrilobular emphysema. The lungs are otherwise clear. Small hiatal hernia. Heterogeneous liver. 2-3 mm nonobstructing right renal pyramidal calcification. The osseous structures are unremarkable. IMPRESSION: No evidence of pulmonary embolus. CTDI: 13.20 mGy DLP: 352.5 mGycm
--- NOTE | 2016-10-20 16:06 | ED ---
SOB HPI - General Chief Complaint: Shortness of Breath Stated Complaint: abd pain/SOB Time Seen by Provider: 10/20/16 10:01 Source: patient, EMS Mode of arrival: EMS Limitations: no limitations - History of Present Illness Initial Comments: This patient is an 81-year-old woman who comes in by ambulance today to be evaluated for some pain to the right upper quadrant and also feeling some shortness of breath when she tries to get around her home. The patient was recently found to have metastatic cancer to her liver, and is scheduled to start treatments for this at the [facility] here tomorrow. The patient indicates the area at the right costal margin. The pain is both aching and sharp. There is a little bit of worsening if she tries to take deep breath, or with pressing on area. MD Complaint: shortness of breath -: days(s) Severity: moderate Quality: aching, sharp Consistency: constant Worsens With: movement, inspiration Known History Of: other (Prostatic cancer) Treatments Prior to Arrival: none - Related Data Home Medications Medication Instructions Recorded Confirmed Atorvastatin [Lipitor] 10 mg PO HS 10/15/15 10/20/16 Fluticasone/Salmeterol [Advair 1 puff INHALATION RT-BID 10/15/15 10/20/16 500-50 Diskus] Letrozole [Femara] 2.5 mg PO DAILY 10/15/15 10/20/16 Levothyroxine Sodium [Levoxyl] 112 mcg PO DAILY 10/15/15 10/20/16 Meclizine HCl 25 mg PO DAILY PRN 10/15/15 10/20/16 Promethazine HCl/Codeine 5 ml PO DAILY PRN 10/15/15 10/20/16 [Prometh-Codein 6.25-10 mg/5 ml] hydrOXYzine HCL [Atarax] 10 mg PO BID 10/15/15 10/20/16 predniSONE 5 mg PO DAILY 10/15/15 10/20/16 Cholecalciferol [Vitamin D3] 2,000 unit PO DAILY 09/24/16 10/20/16 HYDROcodone/APAP 7.5-325MG [[place] 1 tab PO QID PRN 09/24/16 10/20/16 7.5-325] Ipratropium-Albuterol Nebulize 3 ml INHALATION RT-QID PRN 09/24/16 10/20/16 [Duoneb 0.5 mg-3 mg/3 ml Soln] Vitamin C/Biotin [Hair, Skin and 1 tab PO DAILY 09/24/16 10/20/16 Nails] Aspirin [Adult Low Dose Aspirin EC] 81 mg PO DAILY 09/30/16 10/20/16 Warfarin [Coumadin] 5 mg PO DAILY 09/30/16 10/20/16 Ascorbic Acid [Vitamin C] 500 mg PO DAILY 10/20/16 10/20/16 Triamcinolone 0.1% Cream [Kenalog] 1 applicatio TOPICAL BID PRN 10/20/16 Allergies Allergy/AdvReac Type Severity Reaction Status Date / Time Sulfa (Sulfonamide Allergy Unknown Verified 10/20/16 12:05 Antibiotics) Review of Systems ROS Statement: Those systems with pertinent positive or pertinent negative responses have been documented in the HPI. ROS Other: All systems not noted in ROS Statement are negative. Constitutional: Reports: weakness. Denies: fever, chills Respiratory: Reports: dyspnea. Denies: cough, wheezes, hemoptysis Cardiovascular: Reports: as per HPI, chest pain. Denies: palpitations, edema, syncope Gastrointestinal: Reports: as per HPI, abdominal pain. Denies: vomiting, diarrhea, constipation, hematemesis Genitourinary: Denies: dysuria, hematuria Musculoskeletal: Denies: back pain Skin: Denies: rash Neurological: Denies: headache, weakness, numbness Past Medical History Past Medical History: Asthma, Cancer, COPD, Deep Vein Thrombosis (DVT), Hyperlipidemia, Liver Disease, Osteoarthritis (OA), Pulmonary Embolus (PE), Thyroid Disorder Additional Past Medical History / Comment(s): Massive PE and bilateral DVT (2000 ), post IVC filter and the patient is on long terms anticoagulation, hypothyroidism, hyperlipidemia, breast cancer right-sided, status post bilateral mastectomy followed by chemoradiation therapy , 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 Benign lung lesion on the right, varicose veins, liver lesions, wears O2 @ 2 1/2L. History of Any Multi-Drug Resistant Organisms: None Reported Past Surgical History: Appendectomy, Back Surgery, Bladder Surgery, Breast Surgery, Hysterectomy, Joint Replacement, Tonsillectomy Additional Past Surgical History / Comment(s): GERDA CATARACTS. RIZWANA FILTER. RIGHT KNEE REPLACEMENT. VEIN STRIPPING. PORT-O-CATH. mult surgeries on rt knee. arthroscopic rt knee, wedge resection rt lung, D&C, gerda mastectomy; benign lesions removed 10/13/15 [facility]; mediport 10/11/16 Past Anesthesia/Blood Transfusion Reactions: No Reported Reaction Additional Past Anesthesia/Blood Transfusion Reaction / Comment(s): PT ADOPTED, NO FAMILY HISTORY. Past Psychological History: Anxiety Smoking Status: Former smoker Past Alcohol Use History: None Reported Additional Past Alcohol Use History / Comment(s): Quit 31 years ago. Past Drug Use History: None Reported - Past Family History Mother Additional Family Medical History / Comment(s): Unknown General Exam Limitations: no limitations General appearance: alert, in no apparent distress, obese Head exam: Present: atraumatic, normocephalic Eye exam: Present: normal appearance. Absent: scleral icterus, conjunctival injection ENT exam: Present: normal oropharynx Neck exam: Present: normal inspection, full ROM Respiratory exam: Present: normal lung sounds bilaterally. Absent: respiratory distress, wheezes, rales, rhonchi, stridor Cardiovascular Exam: Present: regular rate, normal rhythm, normal heart sounds. Absent: systolic murmur, diastolic murmur, rubs, gallop GI/Abdominal exam: Present: soft, tenderness (Right upper quadrant), mass. Absent: distended, guarding, rebound, rigid, pulsatile mass, hernia Extremities exam: Present: normal inspection, normal capillary refill. Absent: pedal edema, calf tenderness Back exam: Absent: CVA tenderness (R), CVA tenderness (L) Neurological exam: Present: alert Skin exam: Present: warm, dry, intact, normal color. Absent: rash Course Vital Signs 10/20/16 10/20/16 10/20/16 09:39 11:44 13:10 Temperature 97.1 F L 97.9 F Pulse Rate 67 71 77 Respiratory 18 14 16 Rate Blood Pressure 164/81 138/85 155/89 O2 Sat by Pulse 94 L 95 93 L Oximetry 10/20/16 10/20/16 10/20/16 14:08 15:00 15:31 Temperature Pulse Rate 78 75 Respiratory 18 Rate Blood Pressure 133/86 126/69 O2 Sat by Pulse 96 78 L 92 L Oximetry 10/20/16 18:14 Temperature 97.0 F L Pulse Rate 70 Respiratory 20 Rate Blood Pressure 153/72 O2 Sat by Pulse 96 Oximetry Medical Decision Making - Medical Decision Making Patient is an 81-year-old woman with right upper quadrant pain and inability to ambulate due to dyspnea. The patient's pain appears to be managed with analgesic here however she was not able to ambulate. Given this will admit the patient overnight to see if she requires placement. Also consult with Dr. Khan to see about starting the patient's treatment tomorrow. - Lab Data Result diagrams: 10/20/16 10:51 10/20/16 10:51 Lab Results 10/20/16 10/20/16 10/20/16 Range/Units 10:51 10:51 10:51 WBC 9.2 (3.8-10.6) k/uL RBC 4.91 (3.80-5.40) m/uL Hgb 15.3 (11.4-16.0) gm/dL Hct 47.5 H (34.0-46.0) % MCV 96.9 (80.0-100.0) fL MCH 31.1 (25.0-35.0) pg MCHC 32.1 (31.0-37.0) g/dL RDW 14.5 (11.5-15.5) % Plt Count 202 (150-450) k/uL Neutrophils % 78 % Lymphocytes % 11 % Monocytes % 6 % Eosinophils % 2 % Basophils % 1 % Neutrophils # 7.1 (1.3-7.7) k/uL Lymphocytes # 1.0 (1.0-4.8) k/uL Monocytes # 0.6 (0-1.0) k/uL Eosinophils # 0.2 (0-0.7) k/uL Basophils # 0.1 (0-0.2) k/uL PT (9.0-12.0) sec INR (<1.1) APTT (22.0-30.0) sec D-Dimer (<0.60) mg/L FEU Sodium 142 (137-145) mmol/L Potassium 4.7 (3.5-5.1) mmol/L Chloride 104 (98-107) mmol/L Carbon Dioxide 25 (22-30) mmol/L Anion Gap 13 mmol/L BUN 21 H (7-17) mg/dL Creatinine 0.83 (0.52-1.04) mg/dL Est GFR (MDRD) Af Amer >60 (>60 ml/min/1.73 sqM) Est GFR (MDRD) Non-Af >60 (>60 ml/min/1.73 sqM) Glucose 100 H (74-99) mg/dL Calcium 9.7 (8.4-10.2) mg/dL Total Bilirubin 1.1 (0.2-1.3) mg/dL AST 145 H (14-36) U/L ALT 99 H (9-52) U/L Alkaline Phosphatase 190 H (38-126) U/L Total Creatine Kinase 28 L (30-135) U/L CK-MB (CK-2) 0.7 (0.0-2.4) ng/mL CK-MB (CK-2) Rel Index 2.5 Troponin I <0.012 (0.000-0.034) ng/mL NT-Pro-B Natriuret Pep pg/mL Total Protein 6.9 (6.3-8.2) g/dL Albumin 3.9 (3.5-5.0) g/dL 10/20/16 10/20/16 Range/Units 10:51 10:51 WBC (3.8-10.6) k/uL RBC (3.80-5.40) m/uL Hgb (11.4-16.0) gm/dL Hct (34.0-46.0) % MCV (80.0-100.0) fL MCH (25.0-35.0) pg MCHC (31.0-37.0) g/dL RDW (11.5-15.5) % Plt Count (150-450) k/uL Neutrophils % % Lymphocytes % % Monocytes % % Eosinophils % % Basophils % % Neutrophils # (1.3-7.7) k/uL Lymphocytes # (1.0-4.8) k/uL Monocytes # (0-1.0) k/uL Eosinophils # (0-0.7) k/uL Basophils # (0-0.2) k/uL PT 20.4 H (9.0-12.0) sec INR 2.1 (<1.1) APTT 28.3 (22.0-30.0) sec D-Dimer 2.34 H (<0.60) mg/L FEU Sodium (137-145) mmol/L Potassium (3.5-5.1) mmol/L Chloride (98-107) mmol/L Carbon Dioxide (22-30) mmol/L Anion Gap mmol/L BUN (7-17) mg/dL Creatinine (0.52-1.04) mg/dL Est GFR (MDRD) Af Amer (>60 ml/min/1.73 sqM) Est GFR (MDRD) Non-Af (>60 ml/min/1.73 sqM) Glucose (74-99) mg/dL Calcium (8.4-10.2) mg/dL Total Bilirubin (0.2-1.3) mg/dL AST (14-36) U/L ALT (9-52) U/L Alkaline Phosphatase (38-126) U/L Total Creatine Kinase (30-135) U/L CK-MB (CK-2) (0.0-2.4) ng/mL CK-MB (CK-2) Rel Index Troponin I (0.000-0.034) ng/mL NT-Pro-B Natriuret Pep 733 pg/mL Total Protein (6.3-8.2) g/dL Albumin (3.5-5.0) g/dL - EKG Data -: EKG Interpreted by Hi EKG shows normal: sinus rhythm, axis, intervals (The FL interval is prolonged consistent with first-degree AV block), QRS complexes (Normal) Rate: normal (65 bpm) Interpretation: nonspecific ST-T wave changes (Normal) Disposition Clinical Impression: Abdominal pain, Generalized weakness Disposition: ADMITTED IP TO THIS [facility] Condition: Fair
[2016-10-20] MEDS ORDERED: ONDANSETRON 4 MG/2 ML VIAL IVP PRN (17:05)
[2016-10-20] MEDS ORDERED: oxyCODONE-APAP 5-325MG 1 EACH TAB PO PRN (17:05)
[2016-10-20] MEDS ORDERED: NALOXONE 0.4 MG/ML 1 ML VIAL IV PRN (17:05)
[2016-10-20] MEDS: MORPHINE SULFATE 4 MG/ML SYRINGE IV PRN (18:29)
[2016-10-20] MEDS: SODIUM CHLORIDE 0.9% 1,000 ML IV SCH (18:30)
[2016-10-20] MEDS ORDERED: TRIAMCINOLONE 0.1% CREAM 80 GM TUBE TOPICAL PRN (20:27)
[2016-10-20] MEDS ORDERED: MECLIZINE 25 MG TAB PO PRN (20:27)
[2016-10-20] MEDS ORDERED: IPRATROPIUM-ALBUTEROL 3 ML NEB INHALATION PRN (20:27)
[2016-10-20] MEDS ORDERED: hydrOXYzine HCL 10 MG TAB PO PRN (20:27)
[2016-10-20] MEDS ORDERED: PROMETHAZ-COD 6.25-10 MG/5 ML 5 ML CUP PO PRN (20:27)
[2016-10-20] MEDS: ATORVASTATIN 10 MG TAB PO SCH (22:50)
[2016-10-21 04:12] VITALS: BMI 35.6
[2016-10-21] MEDS: LEVOTHYROXINE 112 MCG TAB PO SCH (06:08)
[2016-10-21] MEDS: MORPHINE SULFATE 4 MG/ML SYRINGE IV PRN (06:25)
[2016-10-21] MEDS: ASCORBIC ACID 500 MG TAB PO SCH (07:11)
[2016-10-21] MEDS: ASPIRIN 81 MG CHEW PO SCH (07:11)
[2016-10-21] MEDS: LETROZOLE 2.5 MG TAB PO SCH (07:11)
[2016-10-21] MEDS: CHOLECALCIFEROL 1,000 UNIT TAB PO SCH (07:11)
[2016-10-21] MEDS: predniSONE 5 MG TAB PO SCH (07:11)
[2016-10-21] MEDS: SYMBICORT 160-4.5 MCG INHALER INHALATION SCH ×2 (07:18→20:10)
[2016-10-21 08:08] LABS: Prothrombin Time 19.3 sec (9.0-12.0)
--- NOTE | 2016-10-21 12:35 | HP ---
DATE OF ADMISSION: Patient is a very pleasant 81-year-old female, came in with 10/10 right upper quadrant abdominal pain, nonradiating, associated with some nausea. Denied any vomiting, which now nausea presently improved, pain was 10/10. No abdominal work-up was done yet and patient has elevated d-dimer because of which patient had a CT angiogram of the chest which did not show any pulmonary embolism. Patient's past medical history is significant for bilateral breast cancer with metastatic disease to the liver in the past and patient is supposed to get chemotherapy starting today and abdominal ultrasound will be obtained and patient is on narcotic medications because of her severe pain and cancer pain in spite of her age being 81. I did discuss regarding the CODE STATUS and patient is DNR now. Patient's abdominal pain increases whenever she takes a deep breath although Dawn's sign is negative. CT aneurysm as mentioned above is negative for pulmonary embolism. REVIEW OF SYSTEMS: CONSTITUTIONAL: No fever, no malaise, no fatigue. HEENT: No recent visual problems or hearing problems. Denied any sore throat. CARDIOVASCULAR: No chest pain, orthopnea, PND, no palpitations, no syncope. PULMONARY: No shortness of breath, no cough, no hemoptysis. GASTROINTESTINAL: As described in HPI. Patient denied any diarrhea. Patient had any hematemesis or hematochezia. NEUROLOGICAL: No headaches, no weakness, no numbness. HEMATOLOGICAL: Denies any bleeding or petechiae. GENITOURINARY: Denies any burning micturition, frequency, or urgency. MUSCULOSKELETAL/RHEUMATOLOGICAL: Denies any joint pain, swelling, or any muscle pain. ENDOCRINE: Denies any polyuria or polydipsia. The rest of the 14 point review of systems is negative. Home medications included: 1. Atorvastatin. 2. Fluticasone/salmeterol. 3. Femora. 4. Levothyroxine. 5. Meclizine. 6. Promethazine. 7. Hydroxyzine. 8. Prednisone. 9. Cholecalciferol. 10. Hydrocodone. 11. Acetaminophen. 12. Ipratropium. 13. Albuterol. 14. Vitamin C. 15. Aspirin. 16. Coumadin. 17. Ascorbic acid. 18. Triamcinolone. ALLERGIES: Allergic to SULFA DRUGS. Past medical history is significant for breast cancer with bilateral mastectomy, history of COPD, quit smoking 30 years ago and although patient used 2.5 L of oxygen and steroid-dependent and DVT in the past for which patient is therapeutic on Coumadin, osteoarthritis, pulmonary embolus in the past, hypothyroidism, massive bilateral DVT's in the past with an IVC filter in place, bilateral mastectomy. Family history is unknown as patient is adopted. SOCIAL HISTORY: Patient is a smoker. Quit smoking about 31 years ago. Denied any alcohol abuse or any drug abuse. PHYSICAL EXAMINATION: VITAL SIGNS: Temperature 97.4, pulse of 80, respiratory rate of 17, blood pressure is 136/70, saturating at 94% on 4 L of O2 by nasal cannula. PHYSICAL EXAMINATION: GENERAL: The patient is alert and oriented x3, not in any acute distress. Well developed, well nourished. HEENT: Pupils are round and equally reacting to light. EOMI. No scleral icterus. No conjunctival pallor. Normocephalic, atraumatic. No pharyngeal erythema. No thyromegaly. CARDIOVASCULAR: S1 and S2 present. No murmurs, rubs, or gallops. PULMONARY: Chest is clear to auscultation, no wheezing or crackles. MUSCULOSKELETAL: No joint swelling or deformity. EXTREMITIES: No cyanosis, clubbing, or pedal edema. NEUROLOGICAL: Gross neurological examination did not reveal any focal deficits. SKIN: No rashes. ABDOMINAL EXAMINATION: Patient's abdomen is distended mostly tympanic, there may be little bit of fluid with very minimal shifting of dullness and patient does have minimal right upper quadrant tenderness, the abdomen is soft. Dawn's sign is negative. LABORATORY DATA: CBC, CMP are abnormal for elevated AST and ALT of 145 and 99. Patient's d-dimer is 2.34. ASSESSMENT AND PLAN: 1. Right upper quadrant abdominal pain, etiology is unknown. Most probably Patient may have obstruction from the lymphadenopathy or other metastatic liver disease. Will obtain an ultrasound of the gallbladder. Patient will be started on Protonix and further management depending on the results. 2. Active breast cancer. Patient is supposed to receive chemotherapy. Further management as per Oncology. Patient has a metastatic disease. 3. Elevated liver enzymes, will obtain an ultrasound of the abdomen as mentioned above. 4. History of deep venous thrombosis in the past. Patient is therapeutic on Coumadin, the same dose of Coumadin will be continued. Repeat INR. 5. Rule out pulmonary embolism. Patient has an IVC filter with the chance of pulmonary embolism with the IVC filter and therapeutic on Coumadin is pretty low. 6. Hypothyroidism. 7. Hyperlipidemia. 8. Chronic obstructive pulmonary disease without any acute exacerbation. Patient is steroid dependent. Patient ulcer requirements have gone up, but I did not see any significant pulmonary pathology on any of the imaging. Will continue to monitor. For the rest of above-mentioned chronic medical problems I will go ahead and continue her home medications. 9. CODE STATUS is DO NOT RESUSCITATE.
--- NOTE | 2016-10-21 15:12 | US ---
EXAMINATION TYPE: US liver DATE OF EXAM: 10/21/2016 2:54 PM COMPARISON: NONE CLINICAL HISTORY: Known liver mets. Recent biopsy, increased pain.. EXAM MEASUREMENTS: Liver Length: 14.4 cm Gallbladder Wall: 0.3 cm CBD: 0.2 cm Right Kidney: 11.1 x 3.6 x 4.5 cm TECHNOLOGIST IMPRESSION: Patient of large body habitus, unable to hold her breath FINDINGS: Pancreas: portions visualized wnl, partially obscured by bowel gas Liver: innumerable liver masses, view somewhat limited by patients large body habitus Gallbladder: Exam limited due to patient's clinical condition. Patient unable to shift positions for second view due to pain. No obvious gallstones Evidence for sonographic Dawn's sign: No CBD: wnl Right Kidney: limited visualization, no masses seen IMPRESSION: 1. Extensive hepatic metastasis is suspected.
[2016-10-21] MEDS ORDERED: WARFARIN 5 MG TAB PO SCH (18:00)
[2016-10-21] MEDS: SODIUM CHLORIDE 0.9% 1,000 ML IV SCH (21:03)
[2016-10-21] MEDS: ATORVASTATIN 10 MG TAB PO SCH (21:03)
--- NOTE | 2016-10-21 21:45 | P.CONS ---
History of Present Illness - Reason for Consult Consult date: 10/21/16 - History of Present Illness Mrs. Spencer is an 81 y old female pt of Dr. Maza who presented in early [address] Goss with painful, hardening of Rt breast x 6 months, she never had a Mammogram before, diagnostic mammogram in October 2013 reveled significant architectural distortion in upper outer quadrant of Rt. 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 Rt Breast ER/NV 90%/50%, [id number] was positive by FISH, lt Breast was ER/NV 60%/1%, [id number] could not be done. She had Rt Breast skin bx at 1 O'Clock on 11/22/2013, invasive ductal carcinoma. She was started on weekly taxol x 6 cycles and and herceptin Q 21 days x 1 year. After initial 6 cycles pt had Bilateral mastectomy, 4.5cm tumor in Rt. Breast, LN positive, all margins negative, 1.5 cm tumor in Lt. Breast, infiltrating lobular, grade II, sentinel lymph node negative (1). Once healed from surgery she started radiation to right chest wall. Once therapy complete pt was initiated on femara - about November 2014. She has been followed Q 3 The patient has advanced COPD and prior Hx of PE at least 11 years ago, she had an IVC filter placed after provoked Rt. Lower ext DVT, post op Rt. Knee Sx, she is on Coumadin for life. On her visit in May 2016, she was continuing to tolerate Femara well, CT chest was negative, no liver mets were visible on review of that image. Pt did well up until late 09/10. she then presented with progressive SOB and RUQ pain, and was admitted on 09/23/16. CT scans now revealed new liver lesions. The patient responded quite well to pain medications and was discharged with Coumadin being held. She underwent a liver biopsy as an outpatient on 10/04/16. This was positive for breast cancer. She was then seen by Dr. merida in the office and had a port placement done, on 10/11/16. She is supposed to start TDM 1 in the office today. She states that she had been doing reasonably well until about 2 days ago. She developed increasing pain in the right upper quadrant, that was not controlled with medications. Per the patient progressed to the point where it was hard for her to breathe deeply. She started experiencing increased shortness of breath and therefore came into the emergency room. Based on her symptoms, chest x-ray and CTA were done. These were negative for any evidence of pulmonary embolus. The patient was therefore admitted for management of her pain. This is currently improved with IV morphine though the patient states that the current dose is not lasting as long as the dosing interval. The patient had been off Coumadin for several days, for her liver biopsy and then the port placement. She just started back on the Coumadin a few days ago and on admission her INR was therapeutic. I did review the CTA personally. The liver was not well-imaged, and even the above-mentioned liver lesions were not well discerned at this time Review of Systems Constitutional: Reports fatigue, Reports poor appetite Eyes: denies blurred vision, denies pain Ears: deny: decreased hearing, ear discharge, earache, tinnitus Ears, nose, mouth and throat: Denies headache, Denies sore throat Cardiovascular: Reports shortness of breath Respiratory: Reports dyspnea, Reports pain on inspiration Gastrointestinal: Reports abdominal pain Genitourinary: Denies dysuria, Denies hematuria Menstruation: Reports postmenopausal Musculoskeletal: Reports as per HPI (Bone scan during her recent admission was negative for evidence of metastasis), Denies myalgias Integumentary: Denies pruritus, Denies rash Neurological: Reports weakness Endocrine: Denies fatigue, Denies weight change Hematologic/Lymphatic: Reports as per HPI Past Medical History Past Medical History: Asthma, Cancer, COPD, Deep Vein Thrombosis (DVT), Hyperlipidemia, Liver Disease, Osteoarthritis (OA), Pulmonary Embolus (PE), Thyroid Disorder Additional Past Medical History / Comment(s): Massive PE and bilateral DVT (2000 ), post IVC filter and the patient is on long terms anticoagulation, hypothyroidism, hyperlipidemia, breast cancer right-sided, status post bilateral mastectomy followed by chemoradiation therapy , 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 Benign lung lesion on the right, varicose veins, liver lesions, wears O2 @ 2 1/2L. History of Any Multi-Drug Resistant Organisms: None Reported Past Surgical History: Appendectomy, Back Surgery, Bladder Surgery, Breast Surgery, Hysterectomy, Joint Replacement, Tonsillectomy Additional Past Surgical History / Comment(s): GERDA CATARACTS. RIZWANA FILTER. RIGHT KNEE REPLACEMENT. VEIN STRIPPING. PORT-O-CATH. mult surgeries on rt knee. arthroscopic rt knee, wedge resection rt lung, D&C, gerda mastectomy; benign lesions removed 10/13/15 [facility]; mediport 10/11/16 Past Anesthesia/Blood Transfusion Reactions: No Reported Reaction Additional Past Anesthesia/Blood Transfusion Reaction / Comm: PT ADOPTED, NO FAMILY HISTORY. Past Psychological History: Anxiety Smoking Status: Former smoker Past Alcohol Use History: None Reported Additional Past Alcohol Use History / Comment(s): Quit 31 years ago. Past Drug Use History: None Reported - Past Family History Mother History Unknown: Yes Additional Family Medical History / Comment(s): Unknown Medications and Allergies Home Medications Medication Instructions Recorded Confirmed Type Atorvastatin [Lipitor] 10 mg PO HS 10/15/15 10/20/16 History Fluticasone/Salmeterol [Advair 1 puff INHALATION RT-BID 10/15/15 10/20/16 History 500-50 Diskus] Letrozole [Femara] 2.5 mg PO DAILY 10/15/15 10/20/16 History Levothyroxine Sodium [Levoxyl] 112 mcg PO DAILY 10/15/15 10/20/16 History Meclizine HCl 25 mg PO DAILY PRN 10/15/15 10/20/16 History Promethazine HCl/Codeine 5 ml PO DAILY PRN 10/15/15 10/20/16 History [Prometh-Codein 6.25-10 mg/5 ml] hydrOXYzine HCL [Atarax] 10 mg PO BID 10/15/15 10/20/16 History predniSONE 5 mg PO DAILY 10/15/15 10/20/16 History Cholecalciferol [Vitamin D3] 2,000 unit PO DAILY 09/24/16 10/20/16 History HYDROcodone/APAP 7.5-325MG [[place] 1 tab PO QID PRN 09/24/16 10/20/16 History 7.5-325] Ipratropium-Albuterol Nebulize 3 ml INHALATION RT-QID PRN 09/24/16 10/20/16 History [Duoneb 0.5 mg-3 mg/3 ml Soln] Vitamin C/Biotin [Hair, Skin and 1 tab PO DAILY 09/24/16 10/20/16 History Nails] Aspirin [Adult Low Dose Aspirin EC] 81 mg PO DAILY 09/30/16 10/20/16 History Warfarin [Coumadin] 5 mg PO DAILY 09/30/16 10/20/16 History Ascorbic Acid [Vitamin C] 500 mg PO DAILY 10/20/16 10/20/16 History Triamcinolone 0.1% Cream [Kenalog] 1 applicatio TOPICAL BID PRN 10/20/16 History Allergies Allergy/AdvReac Type Severity Reaction Status Date / Time Sulfa (Sulfonamide Allergy Unknown Verified 10/20/16 12:05 Antibiotics) Physical Exam Vitals: Vital Signs Temp Pulse Resp BP Pulse Ox 10/21/16 15:00 97.5 F L 74 20 160/85 95 10/21/16 07:00 97.5 F L 80 17 136/72 92 L 10/20/16 22:50 84 16 10/20/16 21:50 98.4 F 84 16 125/67 95 Intake and Output 10/21/16 10/21/16 10/21/16 06:59 14:59 22:59 Intake Total 240 160 Balance 240 160 Intake: IV 160 Sodium Chloride 0.9% 1, 160 000 ml @ 20 mls/hr IV . Q24H [facility] Rx#:[id number] Intake, IV Titration 180 Amount Sodium Chloride 0.9% 1, 180 000 ml @ 20 mls/hr IV . Q24H [facility] Rx#:[id number] Oral 60 Other: Voiding Method Bedside Commode Bedside Commode # Voids 2 - Constitutional General appearance: no acute distress - EENT Eyes: EOMI, PERRLA ENT: hearing grossly normal, normal oropharynx - Neck Neck: no lymphadenopathy - Respiratory Respiratory: bilateral: diminished (Lower lobes) - Cardiovascular Rhythm: regular Heart sounds: normal: S1, S2 - Gastrointestinal General gastrointestinal: hepatomegaly (Probably present. Difficult to estimate due to guarding), normal bowel sounds, soft Localized gastrointestinal: tender: RUQ (Quite significant) - Integumentary Integumentary: normal - Neurologic Neurologic: CNII-XII intact - Musculoskeletal Musculoskeletal: generalized weakness, strength equal bilaterally - Psychiatric Psychiatric: A&O x's 3 Results CBC & Chem 7: 10/20/16 10:51 10/20/16 10:51 Labs: Abnormal Lab Results - Last 24 Hours (Table) 10/21/16 Range/Units 07:37 PT 19.3 H (9.0-12.0) sec Chest x-ray: report reviewed CT scan - abdomen: report reviewed CT scan - chest: report reviewed Assessment and Plan (1) Abdominal pain Narrative/Plan: The patient had presented with the abdominal pain, during her previous admission but this had been controlled fairly rapidly with the medication. She was quite stable until about 2 days ago when she had a marked exacerbation in her pain. The liver was not well imaged on the CTA as noted. The shortness of breath, appears to be due to splinting because of pain on inspiration. I with morphine, when her pain is controlled, the patient gave able to breathe fairly normally She is experiencing relief with morphine but the effect is not lasting as long as the dosing interval. I will therefore add fentanyl. The patient had just started back on Coumadin a few days ago. Her INR was therapeutic at the time of admission. I will therefore order an ultrasound of the abdomen to check for any bleeding, that could be causing the change in her symptoms. Status: Acute (2) Liver metastases Narrative/Plan: The patient has a newly diagnosed metastatic recurrence of her breast cancer. She was supposed to start on TDM 1 today. This treatment has to be administered in the outpatient setting. The patient was reassured that delaying the treatment for 1-2 days till her pain is better controlled, would not be detrimental. Treatment will be rescheduled at discharge Status: Acute
[2016-10-21 22:56] VITALS: PULSE 76; TEMP 97.6
[2016-10-22] MEDS: LEVOTHYROXINE 112 MCG TAB PO SCH (06:20)
[2016-10-22 07:15] LABS: CH 30.3; CHCM 30.5; HCT 45.8 % (34.0-46.0); HDW 2.39; HGB 13.9 gm/dL (11.4-16.0); Hypochromasia Moderate; MCH 30.2 pg (25.0-35.0); MCHC 30.3 g/dL (31.0-37.0); MCV 99.8 fL (80.0-100.0); Macrocytosis Slight; Mean Platelet Volume 7.3; RBC 4.59 m/uL (3.80-5.40); RDW 14.4 % (11.5-15.5); WBC 7.1 k/uL (3.8-10.6)
[2016-10-22 07:16] LABS: Prothrombin Time 19.3 sec (9.0-12.0)
[2016-10-22 07:35] LABS: ALT 85 U/L (9-52); AST 129 U/L (14-36); Alkaline Phosphatase 185 U/L (38-126); Anion Gap 9 mmol/L; Blood Urea Nitrogen 31 mg/dL (7-17); Calcium 8.8 mg/dL (8.4-10.2); Carbon Dioxide 27 mmol/L (22-30); Chloride 107 mmol/L (98-107); Glucose 94 mg/dL (74-99); Non-African American GFR(MDRD) >60 (>60 ml/min/1.73 sqM); Potassium 4.6 mmol/L (3.5-5.1); Sodium 143 mmol/L (137-145); Total Bilirubin 0.7 mg/dL (0.2-1.3); Total Protein 5.9 g/dL (6.3-8.2)
[2016-10-22 08:35] VITALS: BP 167/84; RESP 18
[2016-10-22] MEDS ORDERED: PANTOPRAZOLE 40 MG/10 ML VIAL IVP SCH (09:00)
[2016-10-22] MEDS: ASCORBIC ACID 500 MG TAB PO SCH (09:15)
[2016-10-22] MEDS: predniSONE 5 MG TAB PO SCH (09:15)
[2016-10-22] MEDS: CHOLECALCIFEROL 1,000 UNIT TAB PO SCH (09:15)
[2016-10-22] MEDS: LETROZOLE 2.5 MG TAB PO SCH (09:15)
[2016-10-22] MEDS: ASPIRIN 81 MG CHEW PO SCH (09:15)
[2016-10-22] MEDS: SYMBICORT 160-4.5 MCG INHALER INHALATION SCH (09:47)
[2016-10-22] MEDS ORDERED: DOCUSATE 100 MG CAP PO SCH (10:00)
--- NOTE | 2016-10-22 11:34 | DS ---
DATE OF ADMISSION: 10/20/2016 DATE OF DISCHARGE: The patient with history of breast cancer, metastatic cancer to liver came in with complaints of right upper quadrant abdominal pain. Ultrasound of the abdomen showed diffuse metastatic disease. Patient's pain is probably due to metastasis to the liver and no other abnormality was appreciated. Patient's AST and ALT improved minimally. Patient's pain is well controlled with AST although patient is having constipation issues. Patient will be discharged today fentanyl 25 mcg along with MiraLAX and Colace for constipation. Physical therapy evaluated the patient will arrange for home care and home physical therapy. Patient was seen and examined on the day of discharge. Vitals are stable. PHYSICAL EXAMINATION: GENERAL: The patient is alert and oriented x3, not in any acute distress. Well developed, well nourished. HEENT: Pupils are round and equally reacting to light. EOMI. No scleral icterus. No conjunctival pallor. Normocephalic, atraumatic. No pharyngeal erythema. No thyromegaly. CARDIOVASCULAR: S1 and S2 present. No murmurs, rubs, or gallops. PULMONARY: Chest is clear to auscultation, no wheezing or crackles. ABDOMEN: Soft, nontender, nondistended, normoactive bowel sounds. No palpable organomegaly. MUSCULOSKELETAL: No joint swelling or deformity. EXTREMITIES: No cyanosis, clubbing, or pedal edema. NEUROLOGICAL: Gross neurological examination did not reveal any focal deficits. SKIN: No rashes. FINAL DIAGNOSES: 1. Right upper quadrant abdominal pain secondary to breast cancer metastasis to the liver and patient actually was supposed to receive chemotherapy yesterday which was canceled because of her admission to the hospital. 2. Elevated liver enzymes, which are getting better, secondary to metastatic disease to the liver. 3. History of deep venous thrombosis in the past for which patient is on Coumadin. INR is therapeutic at this time. Patient will continue the same dose of Coumadin. 4. Hypothyroidism. 5. Hyperlipidemia. 6. Chronic obstructive pulmonary disease without any acute exacerbation. The patient is on 2 L of oxygen. We will cut down the oxygen to 2 L before she is discharged. Patient is presently, saturating at 95%. Make sure she is doing okay with 2 L of oxygen.
--- NOTE | 2016-10-22 17:33 | P.PN ---
Subjective Principal diagnosis: RUQ pain Pt seen today in follow up, she states much better pain control since application of fentanyl, she is eating and drinking, no nausea, abd pain, she states that she normally has a BM about every 2-3 days, no other physical c/o this AM. Objective - Vital Signs Vital signs: Vital Signs Temp 97.6 F 10/22/16 07:00 Pulse 76 10/22/16 07:00 Resp 18 10/22/16 07:00 BP 167/84 10/22/16 07:00 Pulse Ox 95 10/22/16 07:00 Intake & Output 10/21/16 10/22/16 10/22/16 18:59 06:59 18:59 Intake Total 160 1890 Balance 160 1890 Intake: IV 160 Sodium Chloride 0.9% 1, 160 000 ml @ 20 mls/hr IV . Q24H [facility] Rx#:[id number] Oral 1890 Other: Voiding Method Bedside Commode Bedside Commode Bedside Commode # Voids 2 2 - Constitutional General appearance: Present: average body habitus, cooperative, no acute distress - EENT Eyes: Present: anicteric sclerae - Respiratory Respiratory: bilateral: CTA - Cardiovascular Heart sounds: normal: S1, S2 - Gastrointestinal General gastrointestinal: Present: soft Localized gastrointestinal: tender: RUQ (mild ) - Neurologic Neurologic: Present: CNII-XII intact - Musculoskeletal Musculoskeletal: Present: generalized weakness, strength equal bilaterally - Psychiatric Psychiatric: Present: A&O x's 3, appropriate affect, intact judgment & insight - Labs CBC & Chem 7: 10/22/16 06:46 10/22/16 06:46 Labs: Abnormal Lab Results - Last 24 Hours (Table) 10/22/16 10/22/16 10/22/16 Range/Units 06:46 06:46 06:46 MCHC 30.3 L (31.0-37.0) g/dL PT 19.3 H (9.0-12.0) sec BUN 31 H (7-17) mg/dL AST 129 H (14-36) U/L ALT 85 H (9-52) U/L Alkaline Phosphatase 185 H (38-126) U/L Total Protein 5.9 L (6.3-8.2) g/dL Albumin 3.2 L (3.5-5.0) g/dL - Imaging and Cardiology Liver US report reviewed Assessment and Plan (1) Abdominal pain Narrative/Plan: Secondary to liver mets, pain meds adjusted with improvement. Status: Acute (2) Liver metastases Narrative/Plan: Pt was s/p biopsy and there were concerns for hemorrhage but US did not show that and Hgb remained stable. Pt pain was controlled with meds and pt is doing much better then on admit Status: Acute (3) Breast cancer Narrative/Plan: Pt due to see Dr. Maza and start treatment soon. Status: Chronic Plan: Pt ok from Hem/Onc standpoint to be discharged with new pain meds. She will f/ u as sched in office
== END 2016-10-22 14:35 | disposition home health service (06) ==
LOC: EC 09:38 → 5MS5E 17:26 → 5ONC 10-21 14:46
PROVIDERS: ADMIT Internal Medicine; ATTEND Internal Medicine
DX: G89.3 Neoplasm related pain (acute) (chronic) (principal); R10.11 Right upper quadrant pain; C50.919 Malignant neoplasm of unspecified site of unspecified female breast; C78.7 Secondary malignant neoplasm of liver and intrahepatic bile duct; R74.8 Abnormal levels of other serum enzymes; E03.9 Hypothyroidism, unspecified; E78.5 Hyperlipidemia, unspecified; J44.9 Chronic obstructive pulmonary disease, unspecified; J45.909 Unspecified asthma, uncomplicated; K59.00 Constipation, unspecified; Z66 Do not resuscitate; Z79.01 Long term (current) use of anticoagulants; Z79.52 Long term (current) use of systemic steroids; Z79.82 Long term (current) use of aspirin; Z86.711 Personal history of pulmonary embolism; Z90.13 Acquired absence of bilateral breasts and nipples; Z86.718 Personal history of other venous thrombosis and embolism; Z79.899 Other long term (current) drug therapy; Z79.51 Long term (current) use of inhaled steroids; Z88.2 Allergy status to sulfonamides; Z87.891 Personal history of nicotine dependence; F41.9 Anxiety disorder, unspecified; R11.0 Nausea
CPT/HCPCS: 36415; 94640 ×3; 93005; 97162; 97166; 85379; 83880; 80053 ×2; 82550; 82553; 84484; 85025; 85027; 85610 ×3; 85730; 71010; 76705; 71275; 99285; 96374; 96375; G0378 ×3; J2270 ×2; Q9967; J1170; J7512 ×2; C9113; 96376

== ENCOUNTER 2016-11-10 16:59 | Inpatient (IN) | payer MEDICARE ==
[2016-11-10] MEDS ORDERED: SODIUM CHLORIDE 0.9% 1,000 ML IV STA ×2 (17:11)
--- NOTE | 2016-11-10 17:28 | ED ---
General Adult HPI - General Stated complaint: WEAKNESS Time Seen by Provider: 11/10/16 17:08 Source: RN notes reviewed, old records reviewed - History of Present Illness Initial comments: This is an 81-year-old female ER for evaluation of altered mental status, weakness, likely dehydration. Per family patient has had foul-smelling urine at home. Decreased appetite and not high functioning. Patient has not been feeling well for a few days to patient recently was diagnosed with liver failure and also has significant medical history. Patient is unable to give history is reviewed from family - Related Data Home Medications Medication Instructions Recorded Confirmed Atorvastatin [Lipitor] 10 mg PO HS 10/15/15 11/10/16 Letrozole [Femara] 2.5 mg PO DAILY 10/15/15 11/10/16 hydrOXYzine HCL [Atarax] 10 mg PO BID 10/15/15 11/10/16 predniSONE 5 mg PO DAILY 10/15/15 11/10/16 Cholecalciferol [Vitamin D3] 2,000 unit PO DAILY 09/24/16 11/10/16 Vitamin C/Biotin [Hair, Skin and 1 tab PO DAILY 09/24/16 11/10/16 Nails] Aspirin [Adult Low Dose Aspirin EC] 81 mg PO DAILY 09/30/16 11/10/16 Warfarin [Coumadin] 5 mg PO DAILY 09/30/16 11/10/16 Ascorbic Acid [Vitamin C] 500 mg PO DAILY 10/20/16 11/10/16 HYDROcodone/APAP 5-325MG [[place] 1 tab PO QID PRN 11/10/16 11/10/16 5-325] Levothyroxine Sodium [Synthroid] 125 mcg PO DAILY 11/10/16 11/10/16 Palbociclib [Ibrance] 125 mg PO DAILY 11/10/16 11/10/16 Previous Rx's Medication Instructions Recorded Docusate [Colace] 100 mg PO BID PRN #60 capsule 10/22/16 Polyethylene Glycol 3350 [Miralax] 17 gm PO DAILY PRN #15 packet 10/22/16 fentaNYL 25MCG/HR PATCH [Duragesic 25 mcg TRANSDERM Q72H #10 patch 10/22/16 25MCG/HR] Allergies Allergy/AdvReac Type Severity Reaction Status Date / Time Sulfa (Sulfonamide Allergy Unknown Verified 11/10/16 17:38 Antibiotics) Review of Systems ROS Statement: Those systems with pertinent positive or pertinent negative responses have been documented in the HPI. ROS Other: All systems not noted in ROS Statement are negative. Past Medical History Past Medical History: Asthma, Cancer, COPD, Deep Vein Thrombosis (DVT), Hyperlipidemia, Liver Disease, Osteoarthritis (OA), Pulmonary Embolus (PE), Thyroid Disorder Additional Past Medical History / Comment(s): Massive PE and bilateral DVT (2000 ), post IVC filter and the patient is on long terms anticoagulation, hypothyroidism, hyperlipidemia, breast cancer right-sided, status post bilateral mastectomy followed by chemoradiation therapy , 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 Benign lung lesion on the right, varicose veins, liver lesions, wears O2 @ 2 1/2L. History of Any Multi-Drug Resistant Organisms: None Reported Past Surgical History: Appendectomy, Back Surgery, Bladder Surgery, Breast Surgery, Hysterectomy, Joint Replacement, Tonsillectomy Additional Past Surgical History / Comment(s): GERDA CATARACTS. RIZWANA FILTER. RIGHT KNEE REPLACEMENT. VEIN STRIPPING. PORT-O-CATH. mult surgeries on rt knee. arthroscopic rt knee, wedge resection rt lung, D&C, gerda mastectomy; benign lesions removed 10/13/15 RYLEY; mediport 10/11/16 Past Anesthesia/Blood Transfusion Reactions: No Reported Reaction Additional Past Anesthesia/Blood Transfusion Reaction / Comment(s): PT ADOPTED, NO FAMILY HISTORY. Past Psychological History: Anxiety Smoking Status: Former smoker Past Alcohol Use History: None Reported Additional Past Alcohol Use History / Comment(s): Quit 31 years ago. Past Drug Use History: None Reported - Past Family History Mother History Unknown: Yes Additional Family Medical History / Comment(s): Unknown General Exam Limitations: altered mental status General appearance: alert, in distress, obese Head exam: Present: atraumatic, normocephalic, normal inspection Eye exam: Present: normal appearance, PERRL, EOMI. Absent: scleral icterus, conjunctival injection, periorbital swelling ENT exam: Present: mucous membranes dry Neck exam: Present: normal inspection. Absent: tenderness, meningismus, lymphadenopathy Respiratory exam: Present: normal lung sounds bilaterally, wheezes, decreased breath sounds, prolonged expiratory. Absent: respiratory distress, rales, rhonchi, stridor Cardiovascular Exam: Present: regular rate, normal rhythm, normal heart sounds. Absent: systolic murmur, diastolic murmur, rubs, gallop, clicks GI/Abdominal exam: Present: soft, normal bowel sounds. Absent: distended, tenderness, guarding, rebound, rigid Extremities exam: Present: normal inspection, full ROM, normal capillary refill. Absent: tenderness, pedal edema, joint swelling, calf tenderness Back exam: Present: normal inspection Neurological exam: Present: alert, oriented X3, CN II-XII intact Psychiatric exam: Present: normal affect, normal mood Skin exam: Present: warm, dry, intact, normal color. Absent: rash Course Vital Signs 11/10/16 11/10/16 11/10/16 17:34 18:51 18:53 Temperature Pulse Rate 81 Respiratory 18 18 16 Rate Blood Pressure 123/59 O2 Sat by Pulse 94 L Oximetry 11/10/16 19:10 Temperature 97.9 F Pulse Rate 83 Respiratory 18 Rate Blood Pressure 156/73 O2 Sat by Pulse 98 Oximetry - Reevaluation(s) Reevaluation #1: 11/10/16 19:26 Patient still remaining altered, weak EKG Findings - EKG Comments: EKG Findings:: EKG shows normal sinus rhythm rate of 81, NV 198, QRS 80, QTC 432 Medical Decision Making - Medical Decision Making Aortic female ER for evaluation of altered mental status weakness, nor does severe dehydration, lactic acidosis with acute renal failure, clinical dehydration, patient also has elevated ammonia level with altered mental status and hepatic encephalopathy, patient also has symptomatically and recheck infection with foul-smelling urine unable to get sample at this time - Lab Data Result diagrams: 11/10/16 18:14 11/10/16 18:14 Lab Results 11/10/16 11/10/16 11/10/16 Range/Units 17:45 18:14 18:14 WBC 10.4 (3.8-10.6) k/uL RBC 4.61 (3.80-5.40) m/uL Hgb 14.3 (11.4-16.0) gm/dL Hct 45.6 (34.0-46.0) % MCV 98.8 (80.0-100.0) fL MCH 31.1 (25.0-35.0) pg MCHC 31.4 (31.0-37.0) g/dL RDW 15.1 (11.5-15.5) % Plt Count 237 (150-450) k/uL Neutrophils % 80 % Lymphocytes % 11 % Monocytes % 6 % Eosinophils % 1 % Basophils % 0 % Neutrophils # 8.2 H (1.3-7.7) k/uL Lymphocytes # 1.1 (1.0-4.8) k/uL Monocytes # 0.6 (0-1.0) k/uL Eosinophils # 0.1 (0-0.7) k/uL Basophils # 0.0 (0-0.2) k/uL Hypochromasia Slight Macrocytosis Slight PT (9.0-12.0) sec INR (<1.1) APTT (22.0-30.0) sec Sodium (137-145) mmol/L Potassium (3.5-5.1) mmol/L Chloride (98-107) mmol/L Carbon Dioxide (22-30) mmol/L Anion Gap mmol/L BUN (7-17) mg/dL Creatinine (0.52-1.04) mg/dL Est GFR (MDRD) Af Amer (>60 ml/min/1.73 sqM) Est GFR (MDRD) Non-Af (>60 ml/min/1.73 sqM) Glucose (74-99) mg/dL Plasma Lactic Acid Osbaldo 2.7 H* (0.7-2.0) mmol/L Calcium (8.4-10.2) mg/dL Phosphorus (2.5-4.5) mg/dL Magnesium (1.6-2.3) mg/dL Total Bilirubin (0.2-1.3) mg/dL AST (14-36) U/L ALT (9-52) U/L Alkaline Phosphatase (38-126) U/L Ammonia 57 H (<30) umol/L Total Creatine Kinase (30-135) U/L CK-MB (CK-2) (0.0-2.4) ng/mL CK-MB (CK-2) Rel Index Troponin I (0.000-0.034) ng/mL Total Protein (6.3-8.2) g/dL Albumin (3.5-5.0) g/dL Influenza Type A RNA Not Detected (Not Detectd) Influenza Type B (PCR) Not Detected (Not Detectd) 11/10/16 11/10/16 11/10/16 Range/Units 18:14 18:14 18:14 WBC (3.8-10.6) k/uL RBC (3.80-5.40) m/uL Hgb (11.4-16.0) gm/dL Hct (34.0-46.0) % MCV (80.0-100.0) fL MCH (25.0-35.0) pg MCHC (31.0-37.0) g/dL RDW (11.5-15.5) % Plt Count (150-450) k/uL Neutrophils % % Lymphocytes % % Monocytes % % Eosinophils % % Basophils % % Neutrophils # (1.3-7.7) k/uL Lymphocytes # (1.0-4.8) k/uL Monocytes # (0-1.0) k/uL Eosinophils # (0-0.7) k/uL Basophils # (0-0.2) k/uL Hypochromasia Macrocytosis PT 17.4 H (9.0-12.0) sec INR 1.8 (<1.1) APTT 23.2 (22.0-30.0) sec Sodium 139 (137-145) mmol/L Potassium 5.0 (3.5-5.1) mmol/L Chloride 101 (98-107) mmol/L Carbon Dioxide 24 (22-30) mmol/L Anion Gap 14 mmol/L BUN 39 H (7-17) mg/dL Creatinine 1.50 H (0.52-1.04) mg/dL Est GFR (MDRD) Af Amer 40 (>60 ml/min/1.73 sqM) Est GFR (MDRD) Non-Af 33 (>60 ml/min/1.73 sqM) Glucose 113 H (74-99) mg/dL Plasma Lactic Acid Osbaldo (0.7-2.0) mmol/L Calcium 9.5 (8.4-10.2) mg/dL Phosphorus 4.0 (2.5-4.5) mg/dL Magnesium 2.1 (1.6-2.3) mg/dL Total Bilirubin 1.3 (0.2-1.3) mg/dL AST 237 H (14-36) U/L ALT 119 H (9-52) U/L Alkaline Phosphatase 248 H (38-126) U/L Ammonia (<30) umol/L Total Creatine Kinase 175 H (30-135) U/L CK-MB (CK-2) 2.5 H* (0.0-2.4) ng/mL CK-MB (CK-2) Rel Index 1.4 Troponin I 0.019 (0.000-0.034) ng/mL Total Protein 6.7 (6.3-8.2) g/dL Albumin 3.6 (3.5-5.0) g/dL Influenza Type A RNA (Not Detectd) Influenza Type B (PCR) (Not Detectd) - Radiology Data Radiology results: report reviewed (Chest x-ray is negative for acute disease), image reviewed Disposition Clinical Impression: Dehydration, ARF (acute renal failure), Hepatic encephalopathy, UTI (urinary tract infection) Disposition: ADMITTED IP TO THIS [facility] Condition: Fair Referrals: Shabbir Goss MD [Primary Care Provider] - 1-2 days
[2016-11-10 18:33] LABS: Basophils % (A) 0 %; CH 30.3; CHCM 30.8; Eosinophils # (A) 0.1 k/uL (0-0.7); Eosinophils % (A) 1 %; HCT 45.6 % (34.0-46.0); HDW 2.51; HGB 14.3 gm/dL (11.4-16.0); Hypochromasia Slight; Luc # (Auto) 0.27; Luc % (Auto) 3; Lymphocytes # (A) 1.1 k/uL (1.0-4.8); Lymphocytes % (A) 11 %; MCH 31.1 pg (25.0-35.0); MCHC 31.4 g/dL (31.0-37.0); MCV 98.8 fL (80.0-100.0); Macrocytosis Slight; Mean Platelet Volume 7.7; Monocytes # (A) 0.6 k/uL (0-1.0); Monocytes % (A) 6 %; Neutrophils # (A) 8.2 k/uL (1.3-7.7); Neutrophils % (A) 80 %; RBC 4.61 m/uL (3.80-5.40); RDW 15.1 % (11.5-15.5); WBC 10.4 k/uL (3.8-10.6); WBC (Perox) 10.54
[2016-11-10 18:47] LABS: Partial Thromboplastin Time 23.2 sec (22.0-30.0)
[2016-11-10 18:49] LABS: INR 1.8 (<1.1); Prothrombin Time 17.4 sec (9.0-12.0)
[2016-11-10 18:50] LABS: Calcium 9.5 mg/dL (8.4-10.2); Magnesium 2.1 mg/dL (1.6-2.3); Total Bilirubin 1.3 mg/dL (0.2-1.3); Total Protein 6.7 g/dL (6.3-8.2)
--- NOTE | 2016-11-10 19:10 | XR ---
EXAMINATION TYPE: XR chest 2V DATE OF EXAM: 11/10/2016 6:51 PM COMPARISON: CXR and CT chest 10-20-2016. HISTORY: Weakness and SOB TECHNIQUE: Frontal and lateral views of the chest are obtained. FINDINGS: The right internal jugular Mediport catheter stable in appearance. There is chronic parench ymal change with right-sided volume loss and mediastinal shift redemonstrated. There is no new focal air space opacity, pleural effusion, or pneumothorax seen. The cardiac silhouette size is within no rmal limits. The osseous structures are demineralized. IMPRESSION: Chronic emphysematous change and right-sided volume loss redemonstrated. No acute pulmon gail process is clearly seen.
[2016-11-10 19:17] LABS: Troponin I 0.019 ng/mL (0.000-0.034)
[2016-11-10 19:19] LABS: Creatine Kinase MB 2.5 ng/mL (0.0-2.4)
[2016-11-10] MEDS ORDERED: LACTULOSE 20 GM/30 ML CUP PO ONE (19:22)
[2016-11-10] MEDS ORDERED: IPRATROPIUM-ALBUTEROL 3 ML NEB INHALATION STA (19:25)
[2016-11-10] MEDS ORDERED: IPRATROPIUM-ALBUTEROL 3 ML NEB INHALATION PRN (19:25)
[2016-11-10] MEDS ORDERED: MORPHINE SULFATE 4 MG/ML SYRINGE IVP STA (20:18)
[2016-11-10] MEDS ORDERED: SODIUM CHLORIDE 0.9% 1,000 ML IV ONE (20:30)
[2016-11-10] MEDS: LACTULOSE 20 GM/30 ML CUP PO SCH (22:23)
[2016-11-10 22:43] VITALS: BMI 31.2
[2016-11-11 04:57] LABS: Appearance,Urine Cloudy (Clear); Bilirubin,Urine Negative (Negative); Glucose,Urine (UA) Negative (Negative); Ketones,Urine Negative (Negative); Leukocyte Esterase,Urine Large (Negative); Mucus,Urine Rare /hpf; Nitrite,Urine Negative (Negative); Particle Count 6054; Protein,Urine Trace (Negative); RBC,Urine 1 /hpf (0-5); Specific Gravity,Urine 1.017 (1.001-1.035); Squamous Epithelial Cell,Urine 1 /hpf (0-4); UA Billing (MACRO vs. MICRO) MICRO; WBC,Urine 18 /hpf (0-5)
[2016-11-11] MEDS ORDERED: cefTRIAXone 1,000 MG in SODIUM CHLORIDE 0.9% 100 ML IVPB SCH (09:00)
[2016-11-11] MEDS ORDERED: ENOXAPARIN 40 MG/0.4 ML SYRINGE SQ SCH (09:00)
[2016-11-11] MEDS: LACTULOSE 20 GM/30 ML CUP PO SCH ×2 (09:06→20:27)
[2016-11-11 10:55] LABS: CH 30.6; CHCM 31.4; HCT 44.7 % (34.0-46.0); HDW 2.52; HGB 13.8 gm/dL (11.4-16.0); Hypochromasia Slight; MCH 30.3 pg (25.0-35.0); MCHC 30.9 g/dL (31.0-37.0); MCV 98.1 fL (80.0-100.0); Mean Platelet Volume 7.5; RBC 4.55 m/uL (3.80-5.40); RDW 15.1 % (11.5-15.5); WBC 7.5 k/uL (3.8-10.6)
[2016-11-11 11:09] LABS: ALT 104 U/L (9-52); AST 211 U/L (14-36); Alkaline Phosphatase 216 U/L (38-126); Anion Gap 9 mmol/L; Blood Urea Nitrogen 30 mg/dL (7-17); Calcium 8.8 mg/dL (8.4-10.2); Carbon Dioxide 25 mmol/L (22-30); Chloride 108 mmol/L (98-107); Glucose 114 mg/dL (74-99); Non-African American GFR(MDRD) 54 (>60 ml/min/1.73 sqM); Potassium 4.7 mmol/L (3.5-5.1); Sodium 142 mmol/L (137-145); Total Bilirubin 1.5 mg/dL (0.2-1.3)
[2016-11-11] MEDS ORDERED: LACTULOSE 20 GM/30 ML CUP PO SCH (15:30)
[2016-11-11] MEDS ORDERED: DOCUSATE 100 MG CAP PO PRN (16:04)
[2016-11-11] MEDS ORDERED: POLYETHYLENE GLYCOL 3350 17 GM POWD.PACK PO PRN (16:04)
[2016-11-11] MEDS: ATORVASTATIN 10 MG TAB PO SCH (23:53)
[2016-11-12] MEDS: LACTULOSE 20 GM/30 ML CUP PO SCH ×4 (00:07→21:30)
[2016-11-12] MEDS: MORPHINE SULFATE 4 MG/ML SYRINGE IVP PRN ×4 (05:11→22:10)
[2016-11-12 08:00] LABS: Basophils # (A) 0.1 k/uL (0-0.2); Basophils % (A) 1 %; CH 30.5; CHCM 31.1; Eosinophils # (A) 0.2 k/uL (0-0.7); Eosinophils % (A) 2 %; HDW 2.58; HGB 13.4 gm/dL (11.4-16.0); Hypochromasia Slight; Luc # (Auto) 0.27; Luc % (Auto) 3; Lymphocytes # (A) 1.2 k/uL (1.0-4.8); Lymphocytes % (A) 13 %; MCH 30.6 pg (25.0-35.0); MCHC 31.1 g/dL (31.0-37.0); MCV 98.5 fL (80.0-100.0); Macrocytosis Slight; Mean Platelet Volume 8.2; Monocytes # (A) 0.6 k/uL (0-1.0); Monocytes % (A) 7 %; Neutrophils # (A) 6.5 k/uL (1.3-7.7); Neutrophils % (A) 74 %; RBC 4.36 m/uL (3.80-5.40); RDW 15.1 % (11.5-15.5); WBC 8.8 k/uL (3.8-10.6); WBC (Perox) 8.46
[2016-11-12 08:06] LABS: INR 1.8 (<1.1); Prothrombin Time 17.3 sec (9.0-12.0)
[2016-11-12] MEDS: ASPIRIN 81 MG CHEW PO SCH (08:34)
[2016-11-12] MEDS: ASCORBIC ACID 500 MG TAB PO SCH (08:34)
[2016-11-12] MEDS: PANTOPRAZOLE 40 MG TABLET PO SCH (08:34)
[2016-11-12] MEDS: LEVOTHYROXINE 125 MCG TAB PO SCH (08:34)
[2016-11-12] MEDS: LETROZOLE 2.5 MG TAB PO SCH (08:35)
[2016-11-12 08:36] LABS: ALT 99 U/L (9-52); AST 185 U/L (14-36); Alkaline Phosphatase 219 U/L (38-126); Anion Gap 8 mmol/L; Blood Urea Nitrogen 19 mg/dL (7-17); Calcium 8.3 mg/dL (8.4-10.2); Carbon Dioxide 25 mmol/L (22-30); Chloride 109 mmol/L (98-107); Glucose 95 mg/dL (74-99); Magnesium 1.9 mg/dL (1.6-2.3); Non-African American GFR(MDRD) >60 (>60 ml/min/1.73 sqM); Potassium 4.6 mmol/L (3.5-5.1); Sodium 142 mmol/L (137-145); Total Bilirubin 1.6 mg/dL (0.2-1.3); Total Protein 5.7 g/dL (6.3-8.2)
[2016-11-12] MEDS ORDERED: NON-FORMULARY DRUG (Vitamin C/Biotin [Hair, Skin And Nails] 1 TAB) PO SCH (09:00)
--- NOTE | 2016-11-12 09:06 | HP ---
DATE OF ADMISSION: 11/10/2016 CHIEF COMPLAINT: Change in mental status. HISTORY OF PRESENT ILLNESS: This 81-year-old woman with a past medical history of chronic obstructive pulmonary disease, asthma, history of deep venous thrombosis, hyperlipidemia, history of liver disease, history of DJD, history of pulmonary embolism, history of bilateral DVT, IVC filter, history of anticoagulation, hypothyroidism being followed by Dr. Shabbir Goss in the outpatient setting, was taken to [facility] with some change in mental status with the family. The patient also had some dehydration. The patient apparently had foul smelling urine at home. The patient also diminished appetite at home. The patient having generalized weakness and some tiredness. The patient not feeling well over the past several days. The patient admitted for further evaluation and treatment. The patient is slightly more alert and ammonia is found to be elevated up to 57 on admission with elevated LFTs and plasma lactic acid 2.7. Ammonia is improved to 19 at this time. The patient has evidence of UTI. PAST MEDICAL HISTORY: 1. History of breast cancer with liver metastases. 2. History of deep venous thrombosis. 3. Chronic obstructive pulmonary disease. 4. Hyperlipidemia. 5. History of liver disease. 6. Degenerative joint disease. 7. Pulmonary embolism. 8. Hypothyroidism. 9. history of DVT. MEDICATIONS: Prior to admission include home medications: 1. Prednisone 5 mg p.o. daily. 2. Atorvastatin 10 milligrams p.o. b.i.d. 3. Fentanyl 25 mcg q.72h. 4. Coumadin 5 mg p.o. daily. 5. Vitamin C 1 tablet p.o. daily. 6. Miralax 17 gm daily. 8. Synthroid p.o. daily. 10. Hydrocodone 5 mg p.o. q.i.d. p.r.n. 11. Colace 100 milligrams p.o. b.i.d. 12. Vitamin D3 2000 daily. 13. Lipitor 10 mg q.h.s. 14. Ecotrin 81. 15. Vitamin C 500 mg daily. ALLERGIES: SULFA. FAMILY HISTORY: History of no strokes in the family. SOCIAL HISTORY: Previous history of smoking. No history of current smoking. No alcohol intake. REVIEW OF SYSTEMS: ENT: Diminishing hearing. Diminished vision. CARDIOVASCULAR: As mentioned earlier. RESPIRATORY: As mentioned earlier. GI: As mentioned earlier. : As mentioned earlier. CENTRAL NERVOUS SYSTEM: As mentioned earlier. Allergy/immunology: No asthma or hayfever. MUSCULOSKELETAL: As mentioned earlier. HEMATOLOGY/ONCOLOGY: No history of anemia. ENDOCRINE: Hypothyroidism. CONSTITUTIONAL: As mentioned earlier. DERMATOLOGY: Negative. RHEUMATOLOGY: Negative. PSYCHIATRY: As mentioned earlier. PHYSICAL EXAMINATION: The patient is alert and oriented times one, confused. Tremulous. Pulse 73, blood pressure 115/59, respirations 18, temperature 98.3, pulse ox 97% on 3 L. HEENT: Conjunctivae normal. Oral mucosa dry. NECK: No jugular venous distention. No carotid bruit. No lymph node enlargement. CARDIOVASCULAR: S1, S2 muffled. No S3, no S4. RESPIRATORY: Breath sounds diminished at the bases. Bilateral scattered rhonchi and crackles. ABDOMEN: Soft, obese, nontender. No mass palpable. Legs: Minimal edema. Nervous system: Higher functions as mentioned earlier. Moves all 4 limbs. Mild diffuse weakness. Mild diffuse tremors. tremors also present. LABS: CBC within normal limits. Otherwise, INR is 1.8 and creatinine is 1.50 and 0.98, plasma lactic acid is 2.7. Other labs are noted. UA noted. ASSESSMENT: 1. Urinary tract infection with possible sepsis, present on admission. 2. Change in mental status, metabolic encephalopathy, possibly multifactorial acute metabolic encephalopathy, possibly hepatic encephalopathy as well. 3. Increased plasma lactic acid secondary to sepsis possibly present on admission. 4. Acute renal failure, possible prerenal with present on admission. 5. Increased random blood sugar. 6. Increased AST/ALT hepatitissecondary to malignancy and increased bilirubin. 7. Hypoalbuminemia with mild to moderate protein calorie malnutrition. 8. Obesity body mass index 31.2. 9. Chronic obstructive pulmonary disease/asthma. 10. History of deep venous thrombosis and bilateral pulmonary embolism. 11. Hyperlipidemia. 12. History of chronic liver disease. 13. History of hypothyroidism. 14. History of degenerative joint disease. 15. History of IVC filter. 16. Hyperlipidemia. 17. History of breast cancer right-sided and mastectomy followed by chemoradiation. 18. History of lymphedema. 19. Chronic hypoxic respiratory failure, on home O2 nasal cannula. 20. Degenerative joint disease and back surgery pain. 21. IVC filter. 22. Bilateral cataract surgery. 23. Anxiety. 24. Remote history nicotine dependence. 25. FULL CODE. RECOMMENDATIONS AND DISCUSSION: In this 81-year-old woman who presented with multiple complex medical issues, we will monitor the patient closely. Continue the current medications, continue symptomatic treatment. Continue with IV antibiotics. Lactulose. Bronchodilators. Resume the home medications. Consult Dr. Tamez. PT, OT evaluation. Possible ECF rehab. Guarded prognosis because of multiple complex medical issues. Further recommendations to follow. See orders for further details. We will discontinue all the pain medications as well because that can also contribute to change in mental status. Follow the cultures. Further recommendations to follow. See orders for further details. CASA
[2016-11-12] MEDS: THIAMINE 100 MG TAB PO SCH (13:08)
[2016-11-12] MEDS: CHOLECALCIFEROL 1,000 UNIT TAB PO SCH (13:08)
[2016-11-12] MEDS: FOLIC ACID 1 MG TAB PO SCH (13:08)
[2016-11-12] MEDS: MULTIVITAMINS, THERA 1 EACH TAB PO SCH (13:08)
--- NOTE | 2016-11-12 13:47 | US ---
EXAMINATION TYPE: US abdomen limited DATE OF EXAM: 11/12/2016 1:03 PM COMPARISON: Correlation and ultrasound 10/21/2016 CLINICAL HISTORY: 81-year-old female Ascites. Check for ascites TECHNIQUE: All four abdominal quadrants scanned. FINDINGS: No free fluid identified. Redemonstrated innumerable lesions within the liver. IMPRESSION: Innumerable lesions are redemonstrated in the liver. No abdominal ascites seen.
[2016-11-12] MEDS: WARFARIN 5 MG TAB PO SCH (17:50)
[2016-11-12] MEDS: ATORVASTATIN 10 MG TAB PO SCH (21:25)
--- NOTE | 2016-11-12 22:48 | PN ---
DATE OF SERVICE: 11/12/2016 This 81-year-old woman who was admitted with change in mental status, has significant liver lesions, possibly secondary to metastatic disease. The patient also has hepatic encephalopathy. Patient is confused. The patient also had abdominal distention. Multiple consultants are following the patient closely. The ammonia level yesterday was 19. LFTs are still elevated. The patient also has features of UTI and the patient was started on broad-spectrum IV antibiotics as well. Past medical history reviewed. REVIEW OF SYSTEMS: CARDIOVASCULAR SYSTEM: No angina, palpitations. RESPIRATORY SYSTEM: As mentioned earlier. GI: As mentioned earlier. : As mentioned earlier. NERVOUS SYSTEM: Diffusely weak and confused. Current medications are: 1. DuoNeb q.i.d. and p.r.n. 2. Vitamin C 500 daily. 3. Aspirin 81 daily. 4. Lipitor 10 mg. 5. Rocephin 1 gram daily. 6. Vitamin D3 2000 units. 7. Colace 100 mg b.i.d. 8. Folic acid 1 mg daily. 9. Lactulose 30 grams p.o. b.i.d. 10. Femara 2.5 daily. 11. Synthroid 125 mcg p.o. daily. 12. Multivitamin. 13. Protonix 40 mg daily. 14. Miralax. 15. Vitamin B1 100 mg daily. 16. Coumadin 5 mg p.o. daily. PHYSICAL EXAMINATION: Patient is alert and oriented x2. Pulse 70, blood pressure 141/72, respiration 20, temperature 96.7, pulse ox 92% on 4 L. HEENT: Conjunctivae normal. Oral mucosa dry. NECK: No jugular venous distention. No carotid bruit. No lymph node enlargement. CARDIOVASCULAR SYSTEM: S1, S2 muffled. No S3. No S4. RESPIRATORY SYSTEM: Breath sounds diminished at the bases. A few scattered rhonchi. No crackles. ABDOMEN: Soft. Mild diffuse distention. Mild diffuse discomfort also present. LEGS: Minimal edema. No swelling. NERVOUS SYSTEM: Diffuse weak. LABS: CBC within normal limits. INR is 1.8. Bilirubin is 1.6. AST is 185. ALT is 99. Ammonia yesterday was 19. Alkaline phosphatase is 219. Albumin is 2.9. ASSESSMENT: 1. Urinary tract infection with possible sepsis, present on admission. 2. Change in mental status, metabolic encephalopathy, possibly multifactorial secondary to acute metabolic encephalopathy, possibly hepatic encephalopathy as well as sepsis. 3. Increased plasma lactic acid, possibly secondary to sepsis, present on admission. 4. Acute renal failure, possibly prerenal, with acute tubular necrosis with dehydration, present on admission. 5. Increased random blood sugar. 6. Increased AST, ALT. 7. Hepatitis secondary to malignancy, increased bilirubin. 8. Hypoalbuminemia with mild to moderate protein-calorie malnutrition. 9. Extensive hepatic metastases, possibly from breast primary. 10. Obesity with body mass index of 31.2. 11. Chronic obstructive pulmonary disease. 12. History of deep venous thrombosis and bilateral pulmonary embolism. 13. Hyperlipidemia. 14. History of chronic liver disease. 15. History of hypothyroidism. 16. History of degenerative joint disease. 17. History of IVC filter. 18. History of breast cancer, right-sided mastectomy, followed by chemoradiation. 19. History of lymphedema. 20. Chronic hypoxic respiratory failure, on home oxygen nasal cannula. 21. History of degenerative joint disease and back surgery. 22. History of bilateral cataract surgery. 23. History of anxiety. 24. Remote history of nicotine dependence. 25. FULL CODE. RECOMMENDATIONS AND DISCUSSION: I recommend to continue with the current medications, continue with the monitoring, symptomatic treatment. Repeat labs. Continue the empiric antibiotics. I would also recommend consulting Dr. Tamez. PT, OT evaluation. I would also recommend considering possible ECF rehab. Guarded prognosis because of multiple complex medical issues. Discussed with the patient. Discussed with staff. Further recommendations to follow.
[2016-11-13] MEDS: SODIUM CHLORIDE 0.9% 1,000 ML IV SCH ×4 (05:48→21:32)
[2016-11-13] MEDS: LEVOTHYROXINE 125 MCG TAB PO SCH (06:13)
[2016-11-13 07:10] LABS: Basophils % (A) 0 %; CH 30.1; CHCM 30.2; Eosinophils # (A) 0.2 k/uL (0-0.7); Eosinophils % (A) 3 %; HCT 42.6 % (34.0-46.0); HGB 12.8 gm/dL (11.4-16.0); Hypochromasia Marked; Luc # (Auto) 0.24; Luc % (Auto) 3; Lymphocytes # (A) 1.1 k/uL (1.0-4.8); Lymphocytes % (A) 14 %; MCH 30.2 pg (25.0-35.0); MCHC 30.1 g/dL (31.0-37.0); MCV 100.3 fL (80.0-100.0); Macrocytosis Slight; Mean Platelet Volume 7.6; Monocytes # (A) 0.5 k/uL (0-1.0); Monocytes % (A) 6 %; Neutrophils # (A) 5.8 k/uL (1.3-7.7); Neutrophils % (A) 74 %; RBC 4.25 m/uL (3.80-5.40); WBC 7.8 k/uL (3.8-10.6); WBC (Perox) 8.32
[2016-11-13 07:14] LABS: INR 2.2 (<1.1); Prothrombin Time 21.5 sec (9.0-12.0)
[2016-11-13 07:18] LABS: ALT 85 U/L (9-52); AST 151 U/L (14-36); Alkaline Phosphatase 185 U/L (38-126); Anion Gap 8 mmol/L; Blood Urea Nitrogen 17 mg/dL (7-17); Calcium 8.7 mg/dL (8.4-10.2); Carbon Dioxide 24 mmol/L (22-30); Chloride 109 mmol/L (98-107); Glucose 75 mg/dL (74-99); Non-African American GFR(MDRD) >60 (>60 ml/min/1.73 sqM); Potassium 4.7 mmol/L (3.5-5.1); Sodium 141 mmol/L (137-145); Total Bilirubin 1.5 mg/dL (0.2-1.3); Total Protein 5.4 g/dL (6.3-8.2)
[2016-11-13] MEDS: ASPIRIN 81 MG CHEW PO SCH (08:14)
[2016-11-13] MEDS: LETROZOLE 2.5 MG TAB PO SCH ×2 (08:14→08:35)
[2016-11-13] MEDS: LACTULOSE 20 GM/30 ML CUP PO SCH ×3 (08:14→21:22)
[2016-11-13] MEDS: PANTOPRAZOLE 40 MG TABLET PO SCH (08:14)
[2016-11-13] MEDS: ASCORBIC ACID 500 MG TAB PO SCH ×2 (08:14→08:22)
[2016-11-13] MEDS: MULTIVITAMINS, THERA 1 EACH TAB PO SCH ×2 (12:39→12:42)
[2016-11-13] MEDS: DOCUSATE 100 MG CAP PO SCH ×2 (12:39→22:22)
[2016-11-13] MEDS: CHOLECALCIFEROL 1,000 UNIT TAB PO SCH (12:40)
[2016-11-13] MEDS: FOLIC ACID 1 MG TAB PO SCH (12:42)
[2016-11-13] MEDS: THIAMINE 100 MG TAB PO SCH (12:42)
[2016-11-13] MEDS: WARFARIN 5 MG TAB PO SCH (17:08)
--- NOTE | 2016-11-13 19:18 | P.CONS ---
History of Present Illness - Reason for Consult Consult date: 11/13/16 breast cancer Requesting physician: Andreia Guevara - Chief Complaint AMS - History of Present Illness Please refer to Consult dictated 10/21 for cancer history as nothing has changed since that time, pt was supposed to start palbociclib and faslodex this week but is back in the hospital. Info is taken from son at bedside. He states that his brother found pt on the floor of her home a few days ago, unsure of how long she laid there, he said that her phone was in reach and she did not even call for help. Pt is unable to answer questions and is confused as to the events going on, she does follow commands. Denies wanting to throw up, she does have pain with palpation of her the RUQ of her abdomen. Hgb stable, INR therapeutic, elevated LFTs on admit, pt has known liver mets, theses are trending down since admit. Review of Systems ROS unobtainable: due to mental status Past Medical History Past Medical History: Asthma, Cancer, COPD, Deep Vein Thrombosis (DVT), Hyperlipidemia, Liver Disease, Osteoarthritis (OA), Pulmonary Embolus (PE), Thyroid Disorder Additional Past Medical History / Comment(s): Massive PE and bilateral DVT (2000 ), post IVC filter and the patient is on long terms anticoagulation, hypothyroidism, hyperlipidemia, breast cancer right-sided, status post bilateral mastectomy followed by chemoradiation therapy , 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 Benign lung lesion on the right, varicose veins, liver lesions, wears O2 @ 2 1/2L. History of Any Multi-Drug Resistant Organisms: None Reported Past Surgical History: Appendectomy, Back Surgery, Bladder Surgery, Breast Surgery, Hysterectomy, Joint Replacement, Tonsillectomy Additional Past Surgical History / Comment(s): GERDA CATARACTS. RIZWANA FILTER. RIGHT KNEE REPLACEMENT. VEIN STRIPPING. PORT-O-CATH. mult surgeries on rt knee. arthroscopic rt knee, wedge resection rt lung, D&C, gerda mastectomy; benign lesions removed 10/13/15 [facility]; mediport 10/11/16 Past Anesthesia/Blood Transfusion Reactions: No Reported Reaction Additional Past Anesthesia/Blood Transfusion Reaction / Comm: PT ADOPTED, NO FAMILY HISTORY. Past Psychological History: Anxiety Smoking Status: Former smoker Past Alcohol Use History: None Reported Additional Past Alcohol Use History / Comment(s): Quit 31 years ago. Past Drug Use History: None Reported - Past Family History Mother History Unknown: Yes Additional Family Medical History / Comment(s): Unknown Medications and Allergies Home Medications Medication Instructions Recorded Confirmed Type Atorvastatin [Lipitor] 10 mg PO HS 10/15/15 11/10/16 History Letrozole [Femara] 2.5 mg PO DAILY 10/15/15 11/10/16 History hydrOXYzine HCL [Atarax] 10 mg PO BID 10/15/15 11/10/16 History predniSONE 5 mg PO DAILY 10/15/15 11/10/16 History Cholecalciferol [Vitamin D3] 2,000 unit PO DAILY 09/24/16 11/10/16 History Vitamin C/Biotin [Hair, Skin and 1 tab PO DAILY 09/24/16 11/10/16 History Nails] Aspirin [Adult Low Dose Aspirin EC] 81 mg PO DAILY 09/30/16 11/10/16 History Warfarin [Coumadin] 5 mg PO DAILY 09/30/16 11/10/16 History Ascorbic Acid [Vitamin C] 500 mg PO DAILY 10/20/16 11/10/16 History HYDROcodone/APAP 5-325MG [Wilsey 1 tab PO QID PRN 11/10/16 11/10/16 History 5-325] Levothyroxine Sodium [Synthroid] 125 mcg PO DAILY 11/10/16 11/10/16 History Palbociclib [Ibrance] 125 mg PO DAILY 11/10/16 11/10/16 History Allergies Allergy/AdvReac Type Severity Reaction Status Date / Time Sulfa (Sulfonamide Allergy Unknown Verified 11/10/16 17:38 Antibiotics) Physical Exam Vitals: Vital Signs Temp Pulse Pulse Resp BP Pulse Ox Pulse Ox 11/13/16 15:00 97.1 F L 60 16 144/74 94 L 11/13/16 14:01 77 92 L 11/13/16 08:25 92 L 11/13/16 07:00 97.8 F 77 16 142/74 90 L 11/12/16 23:00 98.1 F 80 16 149/78 92 L Intake and Output 11/13/16 11/13/16 11/13/16 06:59 14:59 22:59 Intake Total 1190 Balance 1190 Intake: Intake, IV Titration 600 Amount Sodium Chloride 0.9% 1, 600 000 ml @ 75 mls/hr IV . [id number] ED[facility] Rx#:[id number] Oral 590 Other: Voiding Method Diaper Diaper # Voids 2 2 - Constitutional General appearance: cooperative, mild distress, obese - EENT ENT: normal oropharynx - Neck Neck: no lymphadenopathy - Respiratory Respiratory: bilateral: diminished - Cardiovascular Heart sounds: normal: S1, S2 leg Peripheral Edema: bilateral: 1+ - Gastrointestinal General gastrointestinal: hepatomegaly, soft, tenderness Localized gastrointestinal: tender: RUQ, RLQ - Musculoskeletal Musculoskeletal: generalized weakness - Psychiatric Psychiatric: no A&O x's 3, no appropriate affect, no intact judgment & insight Results CBC & Chem 7: 11/13/16 06:51 11/13/16 06:51 Labs: Abnormal Lab Results - Last 24 Hours (Table) 11/13/16 11/13/16 11/13/16 Range/Units 06:51 06:51 06:51 MCV 100.3 H (80.0-100.0) fL MCHC 30.1 L (31.0-37.0) g/dL PT 21.5 H (9.0-12.0) sec Chloride 109 H (98-107) mmol/L Total Bilirubin 1.5 H (0.2-1.3) mg/dL AST 151 H (14-36) U/L ALT 85 H (9-52) U/L Alkaline Phosphatase 185 H (38-126) U/L Total Protein 5.4 L (6.3-8.2) g/dL Albumin 2.6 L (3.5-5.0) g/dL Microbiology - Last 24 Hours (Table) 11/11/16 16:56 Blood Culture - Preliminary Blood No Growth after 48 hours Chest x-ray: report reviewed US - abdomen: report reviewed Assessment and Plan (1) Liver metastases Status: Acute (2) Breast cancer Status: Chronic Plan: Pt has not been able to start most recently prescribed treatment for her metastatic disease. Will start therapy once pt is feeling better. She is being treated for UTI which is likely contributing to her AMS. Lactulose has already been ordered for suspect hepatic encephalopathy, stool softeners scheduled. No other interventions from Hem/Onc standpoint. Social work consulted to evaluated pt and home situation for safety and ability to care for self.
[2016-11-13] MEDS: MORPHINE SULFATE 4 MG/ML SYRINGE IVP PRN (21:24)
[2016-11-13] MEDS: ATORVASTATIN 10 MG TAB PO SCH (21:24)
--- NOTE | 2016-11-13 22:49 | PN ---
DATE OF SERVICE: 11/13/2016 This 81-year-old woman who was admitted with UTI with possible sepsis also had change in mental status, metabolic encephalopathy. Patient is being closely monitored. Patient also had significant tiredness and weakness. Patient also had multiple hepatic malignancy also. Past medical history reviewed. REVIEW OF SYSTEMS: CARDIOVASCULAR SYSTEM: No angina, palpitations. RESPIRATORY SYSTEM: As mentioned earlier. GI: As mentioned earlier. : No dysuria. NERVOUS SYSTEM: No numbness or weakness. Current medications are: 1. DuoNeb q.i.d. and p.r.n. 2. Vitamin C 500 daily. 3. Aspirin 81 mg daily. 4. Lipitor 10 mg daily. 5. Rocephin 1 gram daily. 6. Vitamin D3 2000 daily. 7. Colace 100 mg b.i.d. 8. Folic acid 1 mg. 9. Cephulac 30 grams b.i.d. 10. Femara 2.5 mg daily. 11. Synthroid 125 mcg 12. Morphine sulfate 4 mg q.4. 13. Multivitamins. 14. Protonix 40 mg daily. 15. Miralax. 16. Vitamin B1 (thiamine) 100 mg. 17. Coumadin 5 mg p.o. daily. PHYSICAL EXAMINATION: Patient is alert and oriented x3. Pulse 60, blood pressure 144/75, respiration 16, temperature 97.1, pulse ox 94% on 3 L. HEENT: Conjunctivae normal. NECK: No jugular venous distention. CARDIOVASCULAR SYSTEM: S1, S2 muffled. RESPIRATORY SYSTEM: Breath sounds diminished at the bases. Bilateral scattered rhonchi and crackles. ABDOMEN: Soft, obese, distended. Mild diffuse discomfort. No guarding. No rigidity. No mass palpable. LEGS: No edema. No swelling. NERVOUS SYSTEM: Diffusely weak. LABS: WBC 7.8, hemoglobin 12.8. Bilirubin is 1.5. AST is 151, ALT is 85. Albumin is 2.6. ASSESSMENT: 1. Urinary tract infection with possible sepsis, present on admission. 2. Change in mental status, metabolic encephalopathy, possibly multifactorial secondary to acute metabolic encephalopathy, possibly hepatic encephalopathy as well as sepsis. 3. Increased plasma lactic acidosis secondary to sepsis, present on admission. 4. Acute renal failure, possibly prerenal with acute tubular necrosis with dehydration, present on admission. 5. Increased random blood sugar. 6. Increased AST, ALT. 7. 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 8. Hypoalbuminemia with mild to moderate protein-calorie malnutrition. 9. Extensive hepatic metastases, possibly from breast primary. 10. Obesity; body mass index 31.2. 11. Chronic obstructive pulmonary disease. 12. History of deep venous thrombosis and bilateral pulmonary embolism. 13. Hyperlipidemia. 14. History of chronic liver disease. 15. Hypothyroidism. 16. History of degenerative joint disease. 17. IVC filter. 18. History of breast cancer, right-sided mastectomy followed by chemoradiation. 19. History of lymphedema. 20. Chronic hypoxic respiratory failure, on home oxygen via nasal cannula. 21. History of degenerative joint disease and back surgery. 22. History of bilateral cataracts. 23. History of anxiety. 24. Remote history of nicotine dependence. 25. FULL CODE. 26. Gait dysfunction. RECOMMENDATIONS AND DISCUSSION: I recommend to continue with the current medications, continue with the monitoring, symptomatic treatment. Otherwise, at this time I would recommend PT, OT evaluation. Continue the rest of the medications. Guarded prognosis. Possible ECF rehab. Discussed with the patient, who understands and agrees. I would also recommend continuing the antibiotics. Monitor PT and INR closely. Further recommendations to follow. MTDD
[2016-11-14] MEDS: LEVOTHYROXINE 125 MCG TAB PO SCH (06:22)
[2016-11-14] MEDS: MORPHINE SULFATE 4 MG/ML SYRINGE IVP PRN (06:23)
[2016-11-14 08:38] LABS: Basophils % (A) 1 %; CH 30.3; CHCM 30.8; Eosinophils # (A) 0.3 k/uL (0-0.7); Eosinophils % (A) 4 %; HCT 43.6 % (34.0-46.0); HGB 13.4 gm/dL (11.4-16.0); Hypochromasia Moderate; Luc # (Auto) 0.23; Luc % (Auto) 3; Lymphocytes % (A) 13 %; MCH 30.4 pg (25.0-35.0); MCHC 30.6 g/dL (31.0-37.0); MCV 99.1 fL (80.0-100.0); Macrocytosis Slight; Mean Platelet Volume 7.3; Monocytes # (A) 0.5 k/uL (0-1.0); Monocytes % (A) 7 %; Neutrophils # (A) 5.1 k/uL (1.3-7.7); Neutrophils % (A) 72 %; WBC 7.1 k/uL (3.8-10.6); WBC (Perox) 7.47
[2016-11-14 08:46] LABS: INR 4.2 (<1.1); Prothrombin Time 41.5 sec (9.0-12.0)
[2016-11-14 09:10] LABS: ALT 85 U/L (9-52); AST 157 U/L (14-36); Alkaline Phosphatase 192 U/L (38-126); Anion Gap 9 mmol/L; Blood Urea Nitrogen 11 mg/dL (7-17); Calcium 8.4 mg/dL (8.4-10.2); Carbon Dioxide 21 mmol/L (22-30); Chloride 109 mmol/L (98-107); Glucose 82 mg/dL (74-99); Non-African American GFR(MDRD) >60 (>60 ml/min/1.73 sqM); Sodium 139 mmol/L (137-145); Total Bilirubin 1.2 mg/dL (0.2-1.3); Total Protein 5.5 g/dL (6.3-8.2)
[2016-11-14] MEDS: PANTOPRAZOLE 40 MG TABLET PO SCH (09:18)
[2016-11-14] MEDS: LACTULOSE 20 GM/30 ML CUP PO SCH ×2 (09:18→22:13)
[2016-11-14] MEDS: ASPIRIN 81 MG CHEW PO SCH (09:18)
[2016-11-14] MEDS: ASCORBIC ACID 500 MG TAB PO SCH (09:18)
[2016-11-14] MEDS: DOCUSATE 100 MG CAP PO SCH ×2 (09:18→22:12)
[2016-11-14] MEDS: LETROZOLE 2.5 MG TAB PO SCH (09:19)
[2016-11-14 09:20] LABS: Potassium 4.3 mmol/L (3.5-5.1)
[2016-11-14] MEDS: CHOLECALCIFEROL 1,000 UNIT TAB PO SCH (12:33)
[2016-11-14] MEDS: FOLIC ACID 1 MG TAB PO SCH (12:33)
[2016-11-14] MEDS: MULTIVITAMINS, THERA 1 EACH TAB PO SCH (12:33)
[2016-11-14] MEDS: THIAMINE 100 MG TAB PO SCH (12:33)
[2016-11-14] MEDS: ATORVASTATIN 10 MG TAB PO SCH (22:12)
[2016-11-14] MEDS: SODIUM CHLORIDE 0.9% 1,000 ML IV SCH (22:14)
--- NOTE | 2016-11-14 23:28 | P.PN ---
Subjective Principal diagnosis: AMS, weakness Pt seen today in follow up, she is more alert then yesterday but still confused to place, time and situation. She denied feeling sick to her stomach, need to go to the bathroom or pain. Objective - Vital Signs Vital signs: Vital Signs Temp 96.0 F L 11/14/16 15:00 Pulse 72 11/14/16 15:00 Resp 18 11/14/16 15:00 BP 193/89 11/14/16 15:00 Pulse Ox 95 11/14/16 15:00 Intake & Output 11/14/16 11/14/16 11/15/16 06:59 18:59 06:59 Intake Total 1565 Balance 1565 Intake: IV 725 Sodium Chloride 0.9% 1, 675 000 ml @ 75 mls/hr IV . [id number] [facility] Rx#:[id number] cefTRIAXone 1,000 mg In 50 Sodium Chloride 0.9% 50 ml @ 100 mls/hr IVPB Q24H [facility] Rx#:[id number] Oral 840 Other: Voiding Method Diaper Diaper # Voids 2 1 - Constitutional General appearance: Present: no acute distress, obese - EENT Eyes: Present: anicteric sclerae - Respiratory Details: respirations even and unlabored - Gastrointestinal General gastrointestinal: Present: soft - Musculoskeletal Musculoskeletal: Present: generalized weakness - Psychiatric Psychiatric Comment(s): pt answered that she did not know where she was, she has not known where she is "for a long time" - Labs CBC & Chem 7: 11/14/16 07:57 11/14/16 07:57 Labs: Abnormal Lab Results - Last 24 Hours (Table) 11/14/16 11/14/16 11/14/16 Range/Units 07:57 07:57 07:57 MCHC 30.6 L (31.0-37.0) g/dL PT 41.5 H (9.0-12.0) sec Chloride 109 H (98-107) mmol/L Carbon Dioxide 21 L (22-30) mmol/L AST 157 H (14-36) U/L ALT 85 H (9-52) U/L Alkaline Phosphatase 192 H (38-126) U/L Total Protein 5.5 L (6.3-8.2) g/dL Albumin 2.6 L (3.5-5.0) g/dL Microbiology - Last 24 Hours (Table) 11/11/16 16:56 Blood Culture - Preliminary Blood No Growth after 72 hours Assessment and Plan (1) Liver metastases Status: Acute (2) Breast cancer Status: Chronic Plan: Spoke with Social Work today, concern is that pt lives alone, in her current condition she cannot go home and there does not seem to be any family that can take her in. Pt will then need to be placed in ECF or rehab. Highly suspect that pt will only decline in the ECF setting and there are concerns from Physical Therapists that pt will not endure any PT. From an Oncology standpoint it is felt that if the pt does not receive treatment soon her malignancy will be so advanced that any treatment would not be effective. If pt goes to ECF/rehab she cannot take the oral targeted agent that has been prescribed for her despite it already having been paid for. The only other option is to give a dose of IV chemotherapy in the hospital before discharge to see if the patient could derive some benefit. I will speak with primary Oncologist about what he feels the best plan of care for the patient is. Then I will call POA son tomorrow and tell him the options. We will communicate decisions tomorrow.
--- NOTE | 2016-11-14 23:44 | PN ---
DATE OF SERVICE: 11/14/2016 This 81-year-old woman who was admitted with UTI with possible sepsis is being closely monitored. The patient had change in mental status also, which is improving at this time. The patient possible hepatitis malignancy as well from secondary from breast. Dr. Tamez is following the patient closely. On exam, alert and oriented x2. Pulse 72, blood pressure 193/89, respiration 18, temperature 96 degrees. Pulse ox is normal. HEENT: Conjunctivae normal. Oral mucosa moist. NECK: No jugular venous distention. No carotid bruit. No lymph node enlargement. CARDIOVASCULAR SYSTEM: S1, S2 muffled. RESPIRATORY SYSTEM: Breath sounds diminished at the bases. No rhonchi. No crackles. ABDOMEN: Soft, non-tender. No mass palpable. LEGS: No edema. No swelling. NERVOUS SYSTEM: Higher functions as mentioned earlier. Moves all 4 limbs. No focal motor or sensory deficit. LYMPHATICS: No lymph node palpable in neck, axillae or groin. SKIN: No ulcer, rash, bleeding. REVIEW OF SYSTEMS: CARDIOVASCULAR SYSTEM: No angina, palpitations. RESPIRATORY SYSTEM: As mentioned earlier. GI: As mentioned earlier. : No dysuria, retention. NERVOUS SYSTEM: As mentioned earlier. LABS: CBC within normal limits. INR is 4.2. Total bilirubin is 1.2. AST is 157. Alkaline phosphatase 192. Current medications were reviewed and include: 1. DuoNeb q.i.d. and p.r.n. 2. Vitamin C. 3. Lipitor. 4. Rocephin 1 gram IV daily. 5. Colace. 6. Folic acid. 7. Cephulac. 8. Femara. 9. Synthroid. 10. Morphine sulfate. 11. Protonix. 12. Miralax. 13. Vitamin B1. ASSESSMENT: 1. Urinary tract infection with sepsis, present on admission. 2. Change in mental status, metabolic encephalopathy, possibly multifactorial secondary to acute metabolic encephalopathy, possibly hepatic encephalopathy as well as sepsis. 3. Increased plasma lactic acidosis secondary to sepsis, present on admission. 4. Acute renal failure, possibly prerenal, with acute tubular necrosis with dehydration, present on admission. 5. Coumadin coagulopathy. 6. Increased random blood sugar. 7. Increased AST, ALT. 8. Hepatitis secondary to malignancy. 9. Increased bilirubin. 10. Hypoalbuminemia with mild to moderate protein-calorie malnutrition. 11. Extensive hepatic metastasis, possibly from breast primary. 12. Obesity with a body mass index of 31.2. 13. Chronic obstructive pulmonary disease. 14. History of deep venous thrombosis with bilateral pulmonary embolism. 15. Hyperlipidemia. 16. History of chronic liver disease. 17. Hypothyroidism. 18. History of degenerative joint disease. 19. IVC filter. 20. History of breast cancer, right-sided mastectomy followed by chemoradiation. 21. History of lymphedema. 22. Chronic hypoxic respiratory failure, on home oxygen via nasal cannula. 23. History of degenerative joint disease and back surgery. 24. History of bilateral cataracts. 25. History of anxiety. 26. Remote history nicotine dependence. 27. Gait dysfunction. 28. FULL CODE. RECOMMENDATIONS AND DISCUSSION: I recommend to continue with the current medications. I would recommend holding the antiplatelet agents as well as Coumadin. Will continue the rest of the medications. PT and OT evaluation for possible ECF. I also had a detailed discussion with Dr. Tamez regarding the further course of action. Dr. Tamez discussed with Dr. Maza also. Continue the IV antibiotic at this time. LFTs are still elevated. Patient also had constipation issues. Will continue and titrate the lactulose as well. Discussed with staff. Discussed with the patient. Guarded prognosis. Further recommendations to follow. MTDD
[2016-11-15] MEDS: MORPHINE SULFATE 4 MG/ML SYRINGE IVP PRN ×2 (07:07→20:09)
[2016-11-15] MEDS: DOCUSATE 100 MG CAP PO SCH ×2 (07:13→20:05)
[2016-11-15] MEDS: PANTOPRAZOLE 40 MG TABLET PO SCH (07:13)
[2016-11-15] MEDS: LETROZOLE 2.5 MG TAB PO SCH (07:13)
[2016-11-15] MEDS: LEVOTHYROXINE 125 MCG TAB PO SCH (07:13)
[2016-11-15] MEDS: MULTIVITAMINS, THERA 1 EACH TAB PO SCH (07:13)
[2016-11-15] MEDS: LACTULOSE 20 GM/30 ML CUP PO SCH ×2 (07:13→20:05)
[2016-11-15] MEDS: CHOLECALCIFEROL 1,000 UNIT TAB PO SCH (07:13)
[2016-11-15] MEDS: ASCORBIC ACID 500 MG TAB PO SCH (07:13)
[2016-11-15] MEDS: FOLIC ACID 1 MG TAB PO SCH (07:13)
[2016-11-15] MEDS: THIAMINE 100 MG TAB PO SCH (07:14)
[2016-11-15 07:49] LABS: Basophils # (A) 0.1 k/uL (0-0.2); Basophils % (A) 1 %; CH 30.5; CHCM 31.5; Eosinophils # (A) 0.3 k/uL (0-0.7); Eosinophils % (A) 4 %; HCT 43.5 % (34.0-46.0); HDW 2.74; HGB 13.5 gm/dL (11.4-16.0); Hypochromasia Slight; Luc % (Auto) 3; Lymphocytes # (A) 1.1 k/uL (1.0-4.8); Lymphocytes % (A) 15 %; MCH 30.4 pg (25.0-35.0); MCHC 31.2 g/dL (31.0-37.0); MCV 97.5 fL (80.0-100.0); Mean Platelet Volume 7.6; Monocytes # (A) 0.5 k/uL (0-1.0); Monocytes % (A) 7 %; Neutrophils # (A) 5.1 k/uL (1.3-7.7); Neutrophils % (A) 71 %; RBC 4.46 m/uL (3.80-5.40); WBC 7.2 k/uL (3.8-10.6); WBC (Perox) 7.25
[2016-11-15 07:58] LABS: INR 4.2 (<1.1); Prothrombin Time 41.7 sec (9.0-12.0)
[2016-11-15 08:09] LABS: ALT 89 U/L (9-52); AST 180 U/L (14-36); Alkaline Phosphatase 230 U/L (38-126); Anion Gap 7 mmol/L; Blood Urea Nitrogen 7 mg/dL (7-17); Calcium 8.2 mg/dL (8.4-10.2); Carbon Dioxide 28 mmol/L (22-30); Chloride 106 mmol/L (98-107); Glucose 100 mg/dL (74-99); Non-African American GFR(MDRD) >60 (>60 ml/min/1.73 sqM); Potassium 3.8 mmol/L (3.5-5.1); Sodium 141 mmol/L (137-145); Total Bilirubin 1.3 mg/dL (0.2-1.3); Total Protein 5.2 g/dL (6.3-8.2)
[2016-11-15] MEDS: SODIUM CHLORIDE 0.9% 1,000 ML IV SCH ×2 (11:56→20:03)
--- NOTE | 2016-11-15 11:58 | P.PN ---
Progress Note - Text Pt admitted for AMS. She has metastatic breast cancer. I spoke with her son on the phone re: diagnosis, treatment, prognosis. We discussed concerns of pt poor performance status, incurable nature of her disease, palliation of symptoms through treatment as well as concerns for any ability to tolerate treatment. All questions were answered to the best of my ability. Son stated that his mother had previously expressed wishes that if she was to get bad cancer then she would like to just live out the end of her life, no hospitals or rehab, she did not even want to come to the hospital this visit. Decision was made to pursue hospice. I contacted medical social work and recommended hospice house. Med Social Work will meet with son later today. Pt is ok from a Hem/Onc standpoint to be released to the care of hospice once in place.
[2016-11-15] MEDS: ATORVASTATIN 10 MG TAB PO SCH (20:05)
--- NOTE | 2016-11-15 22:35 | PN ---
DATE OF SERVICE: 11/15/2016 This 81 -year-old woman was admitted to the hospital with UTI with possible sepsis also had some change in mental status. Patient also had hepatic encephalopathy. The patient also significantly hepatic malignancy also. The family is also considering several options. The patient apparently did not want any more chemotherapy. Liver ultrasound was noted. LFTs also noted. Past medical history reviewed. REVIEW OF SYSTEMS: CARDIOVASCULAR: As mentioned earlier. RESPIRATORY SYSTEM: As mentioned earlier. GI: As mentioned earlier. : No dysuria or retention. Current medications are reviewed and include: 1. DuoNeb q.i.d. and p.r.n. 2. Vitamin C 500 daily. 3. Lipitor 10 mg q.h.s. 4. Rocephin 1 gram daily. 5. Colace 100 milligrams b.i.d. 6. Folic acid 1 mg daily. 7. Cephulac 30 grams p.o. b.i.d. 8. Femara 2.5 mg daily. 9. Synthroid 125 mcg p.o. daily. 10. Multivitamin 1 p.o. daily. 11. Protonix 1 daily 40 mg daily. 12. Miralax. 13. Vitamin B1 100 mg daily. PHYSICAL EXAMINATION: The patient is alert and oriented times three. Pulse is 76, blood pressure 140/82 and respiratory rate 20. Temperature 97.2, pulse ox 97% on 3 L. HEENT: Conjunctivae normal. NECK: No jugular venous distention. CARDIOVASCULAR: S1, S2 muffled. RESPIRATORY: Breath sounds diminished at the bases. A few scattered rhonchi. ABDOMEN: Soft, obese, nontender. LEGS: No edema. Hepatomegaly present. CENTRAL NERVOUS SYSTEM: No focal deficits. LABS: INR is 4.2, total bilirubin is 1.3. AST is 180, ALT is 80, alk phos is 230, stable trends. ASSESSMENT: 1. Urinary tract infection with sepsis, present on admission. 2. Change in mental status, metabolic encephalopathy, possibly multifactorial secondary to acute metabolic encephalopathy secondary to hepatic encephalopathy as well as sepsis. 3. Increased plasma lactic acid and lactic acidosis secondary to sepsis, present on admission. 4. Acute renal failure, possible prerenal with acute tubular necrosis with dehydration, present on admission. 5. Gait dysfunction. 6. Coumadin coagulopathy. 7. Increased random blood sugar. AST, ALT secondary to hepatic malignancy. 8. Increased bilirubin. 9. Hypoalbuminemia with mild to moderate protein calorie malnutrition. 10. Extensive hepatic metastasis, possibly from primary from breast. 11. Obesity with body mass index of 31.2. 12. Chronic obstructive pulmonary disease. 13. History of deep venous thrombosis with bilateral pulmonary embolism. 14. Hyperlipidemia. 15. History of chronic liver disease. 16. Hypothyroidism. 17. History of degenerative joint disease. 18. IVC filter. 19. History of breast cancer right-sided mastectomy followed by chemoradiation. 20. History of lymphedema. 21. Chronic respiratory failure, on home O2 with nasal cannula. 22. History of degenerative joint disease and back surgery. 23. History of bilateral cataracts. 24. History of anxiety. 25. Remote history of nicotine dependence. 26. Gait dysfunction. 27. FULL CODE. RECOMMENDATIONS AND DISCUSSION: In this 81-year-old woman who presented with multiple complex medical issues, we will monitor the patient closely. Continue the current medications and continue symptomatic treatment. The case was discussed at length with the social sciences lecturer and case management and oncology also. Discussed with the patient. The patient would not like any more chemotherapy at this time. The possibility of comfort measures and hospice also discussed with the family will make a decision. Otherwise, social sciences lecturer to follow. Please refer to social sciences lecturer Ashli and trimming caser notes for further information. Once again, the prognosis is guarded because of multiple complex medical issues. Further recommendations to follow. MTDD
[2016-11-16] MEDS: LEVOTHYROXINE 125 MCG TAB PO SCH (06:08)
[2016-11-16 06:25] LABS: Basophils % (A) 1 %; CH 30.5; CHCM 31.6; Eosinophils # (A) 0.3 k/uL (0-0.7); Eosinophils % (A) 4 %; HCT 42.1 % (34.0-46.0); HDW 2.79; HGB 13.3 gm/dL (11.4-16.0); Hypochromasia Slight; Luc # (Auto) 0.22; Luc % (Auto) 3; Lymphocytes # (A) 1.1 k/uL (1.0-4.8); Lymphocytes % (A) 17 %; MCH 30.7 pg (25.0-35.0); MCHC 31.5 g/dL (31.0-37.0); MCV 97.3 fL (80.0-100.0); Mean Platelet Volume 8.3; Monocytes # (A) 0.5 k/uL (0-1.0); Monocytes % (A) 7 %; Neutrophils # (A) 4.3 k/uL (1.3-7.7); Neutrophils % (A) 67 %; RBC 4.33 m/uL (3.80-5.40); RDW 15.1 % (11.5-15.5); WBC 6.4 k/uL (3.8-10.6); WBC (Perox) 6.99
[2016-11-16 06:29] LABS: INR 4.8 (<1.1); Prothrombin Time 47.4 sec (9.0-12.0)
[2016-11-16 06:40] LABS: ALT 78 U/L (9-52); AST 140 U/L (14-36); Alkaline Phosphatase 194 U/L (38-126); Anion Gap 5 mmol/L; Blood Urea Nitrogen 7 mg/dL (7-17); Calcium 7.8 mg/dL (8.4-10.2); Carbon Dioxide 27 mmol/L (22-30); Chloride 107 mmol/L (98-107); Glucose 82 mg/dL (74-99); Non-African American GFR(MDRD) >60 (>60 ml/min/1.73 sqM); Potassium 3.7 mmol/L (3.5-5.1); Sodium 139 mmol/L (137-145); Total Bilirubin 1.2 mg/dL (0.2-1.3); Total Protein 4.8 g/dL (6.3-8.2)
[2016-11-16] MEDS: LETROZOLE 2.5 MG TAB PO SCH (08:22)
[2016-11-16] MEDS: PANTOPRAZOLE 40 MG TABLET PO SCH (08:22)
[2016-11-16] MEDS: CHOLECALCIFEROL 1,000 UNIT TAB PO SCH (08:22)
[2016-11-16] MEDS: LACTULOSE 20 GM/30 ML CUP PO SCH ×2 (08:23→20:19)
[2016-11-16] MEDS: DOCUSATE 100 MG CAP PO SCH ×2 (08:23→20:19)
[2016-11-16] MEDS: THIAMINE 100 MG TAB PO SCH (08:23)
[2016-11-16] MEDS: FOLIC ACID 1 MG TAB PO SCH (08:23)
[2016-11-16] MEDS: MULTIVITAMINS, THERA 1 EACH TAB PO SCH (08:23)
[2016-11-16] MEDS: ASCORBIC ACID 500 MG TAB PO SCH (08:23)
[2016-11-16] MEDS: SODIUM CHLORIDE 0.9% 1,000 ML IV SCH (12:49)
[2016-11-16] MEDS: MORPHINE SULFATE 4 MG/ML SYRINGE IVP PRN ×2 (15:21→18:17)
[2016-11-16] MEDS: ATORVASTATIN 10 MG TAB PO SCH (20:19)
[2016-11-16 20:41] LABS: Glucose,Whole Blood 103 mg/dL (75-99)
[2016-11-17] MEDS: LEVOTHYROXINE 125 MCG TAB PO SCH (06:05)
[2016-11-17] MEDS: SODIUM CHLORIDE 0.9% 1,000 ML IV SCH ×3 (06:06→23:58)
[2016-11-17 06:45] LABS: Basophils % (A) 0 %; CH 30.4; CHCM 31.3; Eosinophils # (A) 0.4 k/uL (0-0.7); Eosinophils % (A) 5 %; HCT 43.2 % (34.0-46.0); HDW 2.83; HGB 13.6 gm/dL (11.4-16.0); Hypochromasia Slight; Luc # (Auto) 0.19; Luc % (Auto) 2; Lymphocytes # (A) 1.1 k/uL (1.0-4.8); Lymphocytes % (A) 14 %; MCH 30.6 pg (25.0-35.0); MCHC 31.4 g/dL (31.0-37.0); MCV 97.7 fL (80.0-100.0); Mean Platelet Volume 8.2; Monocytes # (A) 0.7 k/uL (0-1.0); Monocytes % (A) 9 %; Neutrophils # (A) 5.4 k/uL (1.3-7.7); Neutrophils % (A) 69 %; RBC 4.42 m/uL (3.80-5.40); RDW 15.2 % (11.5-15.5); WBC 7.8 k/uL (3.8-10.6); WBC (Perox) 7.95
[2016-11-17 07:15] LABS: Prothrombin Time 28.5 sec (9.0-12.0)
[2016-11-17 07:26] LABS: ALT 86 U/L (9-52); AST 170 U/L (14-36); Alkaline Phosphatase 218 U/L (38-126); Anion Gap 8 mmol/L; Blood Urea Nitrogen 10 mg/dL (7-17); Carbon Dioxide 28 mmol/L (22-30); Chloride 104 mmol/L (98-107); Glucose 88 mg/dL (74-99); Non-African American GFR(MDRD) >60 (>60 ml/min/1.73 sqM); Potassium 4.2 mmol/L (3.5-5.1); Sodium 140 mmol/L (137-145); Total Bilirubin 1.3 mg/dL (0.2-1.3); Total Protein 4.8 g/dL (6.3-8.2)
[2016-11-17] MEDS: LACTULOSE 20 GM/30 ML CUP PO SCH ×2 (08:06→20:10)
[2016-11-17] MEDS: PANTOPRAZOLE 40 MG TABLET PO SCH (08:08)
[2016-11-17] MEDS: DOCUSATE 100 MG CAP PO SCH ×2 (08:08→20:10)
[2016-11-17] MEDS: LETROZOLE 2.5 MG TAB PO SCH (08:08)
[2016-11-17] MEDS: ASCORBIC ACID 500 MG TAB PO SCH (08:09)
[2016-11-17 09:57] VITALS: RESP 18
--- NOTE | 2016-11-17 11:07 | PN ---
DATE OF SERVICE: 11/16/2016 This is an 81-year-old woman who was admitted with UTI with sepsis and change in mental status, also had a significant history of hepatic malignancy and mental status, also. Currently, it appears that patient and family is leaning toward comfort measures. No chest pain, no palpitation. manager customs and rn social services are working towards that also. Sensorium-tong, patient is definitely better. On exam, pulse is 82, blood pressure 153/65, respirations 18, temperature 97.6, pulse ox 96% on 3 L. HEENT: Conjunctivae normal, oral mucosa moist. Neck is no jugular venous distension. No thyroid enlargement, no lymph node enlargement. CARDIOVASCULAR SYSTEM: S1, S2, muffled, no S3, no S4. RESPIRATORY: Breath sounds diminished at the bases, no rhonchi, no crackles. Abdomen is soft, obese, hepatomegaly present. EXTREMITIES: Legs no edema, no swelling. NERVOUS SYSTEM: No focal deficits. LABS: INR is 4.8. LFTs are noted. ASSESSMENT: 1. Urinary tract infection with sepsis, present on admission. 2. Change in mental status, metabolic encephalopathy, possibly multifactorial secondary to acute metabolic encephalopathy, secondary to hepatic encephalopathy as well as sepsis. 3. Increased plasma lactic acid and lactic acidosis secondary to sepsis, present on admission. 4. Acute renal failure possible prerenal with acute tubular necrosis with dehydration, present on admission. 5. Gait dysfunction. 6. Coumadin coagulopathy. 7. Increased random blood sugar. 8. Increased AST, ALT secondary to hepatic malignancy. 9. Increased bilirubin. 10. Hypoalbuminemia with mild to moderate protein calorie malnutrition. 11. Extensive hepatic metastasis, possibly from primary from breast. 12. Obesity with body mass index of 31.2. 13. Chronic obstructive pulmonary disease. 14. History of deep venous thrombosis with bilateral pulmonary embolism. 15. Hyperlipidemia. 16. History of chronic liver disease and hypothyroidism. 17. History of degenerative joint disease. 18. IVC filter. 19. History of breast cancer, right-sided mastectomy followed by chemoradiation. 20. History of lymphedema. 21. History of chronic respiratory failure, on home oxygen with nasal cannula. 22. History of degenerative joint disease and back surgery. 23. History of bilateral cataracts. 24. History of anxiety. 25. Remote history nicotine dependence. 26. FULL CODE. RECOMMENDATION: Recommend to continue current medication. Continue with the monitoring and symptomatic treatment. Otherwise, at this time I would recommend continue to monitor with the case management and discharge planning for possible discharge on Friday. Guarded prognosis. Further recommendations to follow.
[2016-11-17] MEDS: MULTIVITAMINS, THERA 1 EACH TAB PO SCH (12:20)
[2016-11-17] MEDS: THIAMINE 100 MG TAB PO SCH (12:20)
[2016-11-17] MEDS: CHOLECALCIFEROL 1,000 UNIT TAB PO SCH (12:20)
[2016-11-17] MEDS: FOLIC ACID 1 MG TAB PO SCH (12:21)
[2016-11-17] MEDS: ATORVASTATIN 10 MG TAB PO SCH (20:11)
--- NOTE | 2016-11-17 21:17 | PN ---
DATE OF SERVICE: 11/17/2016 This 81 -year-old woman who was admitted with UTI with possible sepsis being closely monitored. The patient also had multiple abnormalities including metastatic malignancy also. The family is considering comfort measures also at this time. On exam, alert and oriented x2. Pulse 80, blood pressure 130/69, respiratory rate 18, temperature 97.9, pulse ox 98% on room air. HEENT: Conjunctivae normal. NECK: No jugular venous distention. CARDIOVASCULAR: S1, S2 muffled. RESPIRATORY: Breath sounds diminished in the bases. A few scattered rhonchi. No crackles. ABDOMEN: Soft, obese. Hepatomegaly present. CENTRAL NERVOUS SYSTEM: No focal deficits. LABS: CBC noted. Otherwise, LFTs are AST 170, ALT is 87, ( ) noted. ASSESSMENT: 1. Urinary tract infection with sepsis, present on admission. 2. Change in mental status acute metabolic encephalopathy, possibly multifactorial secondary to hepatic encephalopathy as well as sepsis. 3. Increased plasma lactic acidosis secondary to sepsis, present on admission. 4. Acute renal failure, possibly prerenal with acute tubular necrosis with dehydration, present on admission. 5. Gait dysfunction. 6. Coumadin coagulopathy. 7. Increased random blood sugar. 8. Increased AST, ALT secondary to hepatic malignancy. 9. Increased bilirubin. 10. Hypoalbuminemia with mild to moderate protein calorie malnutrition. 11. 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 12. Obesity, body mass index of 31.2. 13. Chronic obstructive pulmonary disease. 14. History of deep venous thrombosis with bilateral pulmonary embolism. 15. Hyperlipidemia. 16. History of chronic liver disease. 17. Hypothyroidism. 18. History of degenerative joint disease. 19. IVC filter. 20. History of breast cancer right-sided mastectomy followed by chemoradiation. 21. History of lymphedema. 22. History of chronic respiratory failure, on home oxygen with nasal cannula. 23. History of degenerative joint disease and as well as back surgery. 24. History of bilateral cataracts. 25. History of anxiety. 26. Remote history of nicotine dependence. 27. FULL CODE. RECOMMENDATIONS AND DISCUSSION: Recommend to continue current medications, continue with monitoring, symptomatic treatment. Otherwise, we will monitor the patient closely, possible hospice and comfort measures. Continue the rest of the medication for now. Further recommendations to follow. Case management and health and social care teacher team to follow.
[2016-11-18] MEDS: LEVOTHYROXINE 125 MCG TAB PO SCH (06:28)
[2016-11-18 07:53] VITALS: BP 142/84; PULSE 72; TEMP 97.4
[2016-11-18] MEDS: LETROZOLE 2.5 MG TAB PO SCH (08:14)
[2016-11-18] MEDS: LACTULOSE 20 GM/30 ML CUP PO SCH (08:14)
[2016-11-18] MEDS: DOCUSATE 100 MG CAP PO SCH (08:15)
[2016-11-18] MEDS: ASCORBIC ACID 500 MG TAB PO SCH (08:15)
[2016-11-18] MEDS: PANTOPRAZOLE 40 MG TABLET PO SCH (08:15)
--- NOTE | 2016-11-18 12:22 | DS ---
DATE OF ADMISSION: 11/10/2016 DATE OF DISCHARGE: FINAL DIAGNOSES: 1. Urinary tract infection with sepsis, present on admission. 2. Change in mental status with metabolic encephalopathy possibly multifactorial secondary to hepatic encephalopathy as well as sepsis. 3. Increased plasma lactic acid secondary to sepsis, present on admission. 4. Acute renal failure, possibly prerenal with acute tubular necrosis with dehydration present on admission. 5. Gait dysfunction. 6. Coumadin coagulopathy. 7. Increased random blood sugar. 8. Increased AST and ALT secondary to hepatic malignancy. 9. Increased bilirubin. 10. Hypoalbuminemia with mild to moderate protein calorie malnutrition. 11. Extensive hepatic metastases, possibly from family from the breast. 12. Obesity, body mass index of 31.2. 13. Chronic obstructive pulmonary disease. 14. History of deep venous thrombosis with a bilateral pulmonary embolism. 15. Hyperlipidemia. 16. History of chronic liver disease. 17. Hypothyroidism. 18. History of degenerative joint disease. 19. IVC filter. 20. History of breast cancer, right-sided mastectomy followed by chemoradiation. 21. History of lymphedema. 22. History of chronic respiratory failure on home O2 with nasal cannula. 23. History of degenerative joint disease as well as back surgery. 24. History of bilateral cataracts. 25. History of anxiety. 26. Remote history of nicotine dependence. 27. NO CODE, NO CARDIOPULMONARY RESUSCITATION, NO VENTILATOR. 28. Comfort measures and hospice. DISCHARGE DISPOSITION: The patient will be discharged in a stable condition with guarded prognosis. Total time taken 30 minutes. Patient was transferred to hospice house. HISTORY OF PRESENT ILLNESS: This 81-year-old woman with a past medical history of multiple medical problems as mentioned earlier being followed by Dr. Shabbir Goss in the outpatient setting was admitted with hepatic encephalopathy, UTI with sepsis and multiple other medical problems. Patient was treated with empiric antibiotics and other measures. The patient did improve significantly. Case was discussed with Dr. Tamez from Oncology and the family decided to go with the comfort measures at this time. On exam, vitals are stable. CARDIOVASCULAR SYSTEM: S1, S2, muffled. ABDOMEN: Soft, hepatomegaly present. NERVOUS SYSTEM: Diffusely weak. The discharge advice: 1. Diet is regular. 2. Activity as tolerated. 3. Followup with Dr. Goss p.r.n. 4. The patient will be discharged to hospice house at this time. The medications are: 1. Colace 100 mg p.o. b.i.d. p.r.n. 2. Albuterol and Atrovent q.i.d. and p.r.n. 3. Ativan 0.5 mg t.i.d. p.r.n. 4. Lactulose 30 gm p.o. b.i.d., hold if the patient has diarrhea. 5. Roxanol 10 mg q.4 p.r.n. 6. MiraLax 17 gm p.o. daily. 7. Scopolamine patch 1.5 mcg patch q.72 hours. Once again, the patient will be discharged in a stable condition with extremely guarded prognosis.
== END 2016-11-18 13:00 | disposition hospice, inpatient (51) | DRG 441 ==
LOC: EC 16:59 → 5ONC 20:30
PROVIDERS: ADMIT Family Medicine; ATTEND Family Medicine
DX: K72.90 Hepatic failure, unspecified without coma (principal); A41.9 Sepsis, unspecified organism; N17.0 Acute kidney failure with tubular necrosis; G93.41 Metabolic encephalopathy; E44.0 Moderate protein-calorie malnutrition; J96.11 Chronic respiratory failure with hypoxia; C78.7 Secondary malignant neoplasm of liver and intrahepatic bile duct; E87.2 Acidosis; N39.0 Urinary tract infection, site not specified; E86.0 Dehydration; J44.9 Chronic obstructive pulmonary disease, unspecified; E03.9 Hypothyroidism, unspecified; E66.9 Obesity, unspecified; E78.5 Hyperlipidemia, unspecified; F41.9 Anxiety disorder, unspecified; J45.909 Unspecified asthma, uncomplicated; R79.1 Abnormal coagulation profile; T45.515A Adverse effect of anticoagulants, initial encounter; K75.9 Inflammatory liver disease, unspecified; Z51.5 Encounter for palliative care; Z79.82 Long term (current) use of aspirin; Z68.31 Body mass index [BMI] 31.0-31.9, adult; Z79.899 Other long term (current) drug therapy; Z85.3 Personal history of malignant neoplasm of breast; Z92.21 Personal history of antineoplastic chemotherapy; Z86.711 Personal history of pulmonary embolism; Z86.718 Personal history of other venous thrombosis and embolism; Z87.891 Personal history of nicotine dependence; Z90.13 Acquired absence of bilateral breasts and nipples; Z99.81 Dependence on supplemental oxygen; Z79.891 Long term (current) use of opiate analgesic; Z79.52 Long term (current) use of systemic steroids; Z88.2 Allergy status to sulfonamides
CPT/HCPCS: 36415; 71020; 76705; 80053; 81001; 82140; 82550; 82553; 83605; 83735; 84100; 84484; 85025; 85027; 85610; 85730; 87040; 87086; 87502; 93005; 94640; 94760; 96361; 96365; 96366; 96375; 99285